=== PATIENT | female | born 1980 | race Caucasian/White ===

== ENCOUNTER 2016-08-28 05:13 | Emergency (ER) | payer OTHER ==
[~2016-08-28] VITALS: Ht 162.6 cm; Wt 60.8 kg
[~2016-08-28 05:13] MED LIST: MISC-696; MTR600X PO; POLY335019 PO; PRENTAB65 PO
[2016-08-28 05:26] VITALS: TEMP 36.5; Ht 162.6 cm; Wt 60.8 kg
[2016-08-28] MEDS ORDERED: DiphenhydrAMINE HCL 50 MG/ML VIAL IV STA (06:06)
[2016-08-28] MEDS ORDERED: ONDANSETRON INJ 2 MG/ML 2 ML VIAL IV STA (06:06)
[2016-08-28] MEDS ORDERED: SODIUM CHLORIDE 0.9% 1000ML 1,000 ML IV STA (06:06)
[2016-08-28 06:18] LABS: BASO % 0.3 %; BASO ABS # 0.02 K/uL (0-0.2); COMPLETE YES; EOS % 1.4 %; HEMATOCRIT 36.2 % (37-47); IG% 0.2 %; LYMPH % 45.6 %; LYMPH ABS # 2.96 K/uL (1.2-3.4); MEAN CELL VOLUME 79.9 fL (80-100); MEAN CORPUSCULAR HEMOGLOBIN 25.8 pg (25-34); MEAN CORPUSCULAR HGB CONC 32.3 g/dl (32-36); MEAN PLATELET VOLUME 9.7 fL (7.4-10.4); MONO % 5.5 %; PLATELET COUNT 308 K/uL (130-400); RED BLOOD COUNT 4.53 M/uL (4.2-5.4); WHITE BLOOD COUNT 6.49 K/uL (4.8-10.8)
[2016-08-28 06:33] LABS: PREG INTERNAL NEGATIVE QC NEG CLEAR BACKGROUND; PREG INTERNAL POSITIVE QC POS CONTROL LINE
[2016-08-28 06:36] LABS: ALT/SGPT 35 U/L (12-78); BLOOD UREA NITROGEN 12 mg/dl (7-18); BUN/CREATININE RATIO 14.8 (10-20); CARBON DIOXIDE 23 mmol/L (21-32); CHLORIDE 106 mmol/L (98-107); GLUCOSE 90 mg/dl (70-99); POTASSIUM 3.9 mmol/L (3.5-5.1); SODIUM 141 mmol/L (136-145)
[2016-08-28 06:47] LABS: ALKALINE PHOSPHATASE 105 U/L (45-117); AST/SGOT 26 U/L (15-37)
[2016-08-28 06:54] LABS: URINE APPEARANCE CLEAR (CLEAR); URINE BILIRUBIN NEG (NEG); URINE COLOR YELLOW; URINE EPITHELIAL CELL AUTO 20-30 /lpf (0-5); URINE NITRITE NEG (NEG); URINE PH 6.5 (4.5-7.5); URINE SPECIFIC GRAVITY 1.033 (1.000-1.030); UROBILINOGEN NEG (NEG); ZZUR CULT IF INDIC CLEAN CATCH YES
[2016-08-28] MEDS ORDERED: CEFTRIAXONE SOD INJ 1 GM ADDVIAL IV STA (06:54)
[2016-08-28 06:57] LABS: MANUAL MICROSCOPIC REQUIRED? NO; REVIEW REQ? NO
[2016-08-28] MEDS ORDERED: CEPH500C2 PO (06:58)
[2016-08-28] MEDS ORDERED: CEPHALEXIN 500MG HOME PACK 1 EA BTL PO ONE (07:00)
--- NOTE | 2016-08-28 07:56 | DIAGNOSTIC IMAGING REPORT ---
EXAMINATION: PELVIC ULTRASOUND CLINICAL HISTORY: pelvic pain PAIN COMPARISON STUDY: 05/05/2016 FINDINGS: The uterus measured maximum dimension 6.7 cm. Retroflexed in configuration.. The endometrial stripe measured 12 mm moderately prominent.. The right ovary measured maximum dimension 3.5 cm. Normal vascular flow.. The left ovary measured maximum dimension 3.7 cm. Normal vascular flow. There is no ultrasonographic evidence of ovarian torsion. It should be noted that ovarian torsion can be present with normal Doppler ultrasonographic findings. There was no evidence of pathologic free pelvic fluid. IMPRESSION: Retroflexed uterus. Mild endometrial prominence at 12 mm. Otherwise negative study Electronically signed by: Elliot Tobar M.D. 08/28/2016 7:54 AM Dictated Date/Time: 08/28/2016 7:52 AM
--- NOTE | 2016-08-28 08:27 | EMERGENCY ROOM VISIT NOTE ---
ED Visit Note First contact with patient: 07:13
--- NOTE | 2016-08-28 08:29 | EMERGENCY ROOM VISIT NOTE ---
ED Visit Note First contact with patient: 07:13 Ms. Walker was signed out to me at shift change which was 0700 hrs. on 2016. This was signed out to me by Princess Morales PA-C. At this time all the lab work was back except for the results of the ultrasound. The results of the ultrasound were discussed with the patient. The patient's urine was questionable for UTI however she did have urinary symptoms to clinical correlate. Benefits versus risk was discussed with the patient regarding antibiotics and she elected to take the Keflex. She is to follow-up with her HELP DESK MANAGER regarding the ultrasound findings. They were both educated upon worrisome symptoms in which to return, had questions answered prior to discharge and were discharged home in good condition. Problem List Medical Problems: (1) ADHD (attention deficit hyperactivity disorder) Status: Chronic (2) ANEMIA NOS Status: Chronic (3) Anxiety Status: Chronic (4) BORDERLINE PERSONALITY DISORDER Status: Chronic (5) CEREBRAL PALSY NOS Status: Chronic (6) Depression Status: Chronic (7) DYSTHYMIC DISORDER Status: Chronic (8) EATING DISORDER NOS Status: Chronic (9) ESOPHAGEAL REFLUX Status: Chronic (10) GASTROPARESIS Status: Chronic (11) HISTRIONIC PERSON NOS Status: Chronic (12) HYPERTENSION NOS Status: Chronic (13) IRRITABLE BOWEL SYNDROME Status: Chronic (14) OBSESSIVE-COMPULSIVE DIS Status: Chronic (15) OCD (obsessive compulsive disorder) Status: Chronic Current/Historical Medications Scheduled Cephalexin Monohydrate (Keflex), 500 MG PO QID Allergies Coded Allergies: Oxycodone (Verified Allergy, Intermediate, RASH, 08/28/16) Codeine (Verified Allergy, Mild, HIVES, 08/28/16) Benztropine (Verified Allergy, Unknown, itchy rash, 08/28/16) Carbamazepine (Verified Allergy, Unknown, 08/28/16) Fluoxetine (Verified Allergy, Unknown, UNSURE, 08/28/16) Vital Signs Date Time Temp Pulse Resp B/P Pulse Ox O2 Delivery O2 Flow Rate FiO2 08/28/16 08:45 65 13 112/62 98 08/28/16 07:42 64 15 112/65 99 Room Air 08/28/16 06:24 72 18 124/86 98 Room Air 08/28/16 05:26 36.5 68 18 132/81 100 Room Air Laboratory Results 08/28/16 06:05 Red Blood Count 4.53, Mean Corpuscular Volume 79.9, Mean Corpuscular Hemoglobin 25.8, Mean Corpuscular Hemoglobin Concent 32.3, Mean Platelet Volume 9.7, Neutrophils (%) (Auto) 47.0, Lymphocytes (%) (Auto) 45.6, Monocytes (%) (Auto) 5.5, Eosinophils (%) (Auto) 1.4, Basophils (%) (Auto) 0.3, Neutrophils # (Auto) 3.05, Lymphocytes # (Auto) 2.96, Monocytes # (Auto) 0.36, Eosinophils # (Auto) 0.09, Basophils # (Auto) 0.02 08/28/16 06:05 Test 08/28/16 05:45 08/28/16 05:50 08/28/16 06:05 Urine Color YELLOW Urine Appearance CLEAR (CLEAR) Urine pH 6.5 (4.5-7.5) Urine Specific [place] 1.033 (1.000-1.030) Urine Protein NEG (NEG) Urine Glucose (UA) NEG (NEG) Urine Ketones TRACE (NEG) Urine Occult Blood 1+ (NEG) Urine Nitrite NEG (NEG) Urine Bilirubin NEG (NEG) Urine Urobilinogen NEG (NEG) Urine Leukocyte Esterase NEG (NEG) Urine WBC (Auto) 5-10 /hpf (0-5) Urine RBC (Auto) 0-4 /hpf (0-4) Urine Hyaline Casts (Auto) 1-5 /lpf (0-5) Urine Epithelial Cells (Auto) 20-30 /lpf (0-5) Urine Bacteria (Auto) 1+ (NEG) White Blood Count 6.49 K/uL (4.8-10.8) Red Blood Count 4.53 M/uL (4.2-5.4) Hemoglobin 11.7 g/dL (12.0-16.0) Hematocrit 36.2 % (37-47) Mean Corpuscular Volume 79.9 fL (80-100) Mean Corpuscular Hemoglobin 25.8 pg (25-34) Mean Corpuscular Hemoglobin Concent 32.3 g/dl (32-36) Platelet Count 308 K/uL (130-400) Mean Platelet Volume 9.7 fL (7.4-10.4) Neutrophils (%) (Auto) 47.0 % Lymphocytes (%) (Auto) 45.6 % Monocytes (%) (Auto) 5.5 % Eosinophils (%) (Auto) 1.4 % Basophils (%) (Auto) 0.3 % Neutrophils # (Auto) 3.05 K/uL (1.4-6.5) Lymphocytes # (Auto) 2.96 K/uL (1.2-3.4) Monocytes # (Auto) 0.36 K/uL (0.11-0.59) Eosinophils # (Auto) 0.09 K/uL (0-0.5) Basophils # (Auto) 0.02 K/uL (0-0.2) RDW Standard Deviation 46.1 fL (36.4-46.3) RDW Coefficient of Variation 15.6 % (11.5-14.5) Immature Granulocyte % (Auto) 0.2 % Immature Granulocyte # (Auto) 0.01 K/uL (0.00-0.02) Anion Gap 12.0 mmol/L (3-11) Est Creatinine Clear Calc Drug Dose 84.8 ml/min Estimated GFR () 110.7 Estimated GFR (Non- 95.5 BUN/Creatinine Ratio 14.8 (10-20) Calcium Level 9.0 mg/dl (8.5-10.1) Total Bilirubin 0.2 mg/dl (0.2-1) Direct Bilirubin < 0.1 mg/dl (0-0.2) Aspartate Amino Transf (AST/SGOT) 26 U/L (15-37) Alanine Aminotransferase (ALT/SGPT) 35 U/L (12-78) Alkaline Phosphatase 105 U/L (45-117) Total Protein 7.8 gm/dl (6.4-8.2) Albumin 4.0 gm/dl (3.4-5.0) Lipase 171 U/L (73-393) Thyroid Stimulating Hormone (TSH) 2.020 uIu/ml (0.300-4.500) Human Chorionic Gonadotropin, Qual NEG (NEG) Medications Administered Medications (Trade) Dose Ordered Sig/Rachel Route Start Time Stop Time Status Last Admin Dose Admin Sodium Chloride (Nss 1000ml) 1,000 ml @ 999 mls/hr Q1H1M STAT IV 08/28/16 06:06 08/28/16 07:06 DC 08/28/16 06:14 999 MLS/HR Diphenhydramine HCl (Benadryl Inj) 25 mg NOW STAT IV 08/28/16 06:06 08/28/16 06:11 DC 08/28/16 06:14 25 MG Ondansetron HCl (Zofran Inj) 4 mg NOW STAT IV 08/28/16 06:06 08/28/16 06:11 DC 08/28/16 06:14 4 MG Ceftriaxone Sodium (Rocephin Inj) 1 gm NOW STAT IV 08/28/16 06:54 08/28/16 06:55 DC 08/28/16 07:42 1 GM Cephalexin Monohydrate (Keflex 500MG Home Pack) 1 homepack NOW ONCE PO 08/28/16 07:00 08/28/16 07:01 DC 08/28/16 07:41 1 HOMEPACK Departure Information Impression Primary Impression: UTI (urinary tract infection) Additional Impression: Anemia Dispostion Home / Self-Care Condition GOOD Prescriptions Cephalexin Monohydrate (KEFLEX) 500 Mg Cap 500 MG PO QID for 6 Days, #24 CAP Prov: Myrna Morales ., NIKO 08/28/16 Forms WORK / SCHOOL INSTRUCTIONS, HOME CARE DOCUMENTATION FORM, IMPORTANT VISIT INFORMATION Patient Instructions UTI, My [facility] Additional Instructions DO NOT drive, drink alcohol, operate machinery, or perform dangerous activities today. You were given medications in the ER that can affect your ability to safely function or operate a vehicle. Keflex 500mg: Take one pill 4 times daily for 7 days for your urine infection. All antibiotics can cause diarrhea. If this occurs and you feel worse or it does not resolve in 1-2 days follow up with your doctor or return to the Emergency Department as this could be signs of serious underlying problems. Any medication can cause an allergic reaction, stop the pills immediately and return to the ER for rash, hives, breathing difficulties, or swelling. This medication is safe with breast-feeding. Zofran 4 mg: Take one every six hours as needed for nausea. Avoid alcohol, operating machinery or dangerous equipment, working on ladders or roofs, DRIVING , or situations where being under the influence may be dangerous. Acetaminophen(Tylenol) may be used for fever or pain. Use 1000mg every six hours as needed. Avoid using more than 4000mg in a 24 hour period. Rest and drink plenty of fluids as tolerated. Slow sips of water or sports drinks are recommended instead of large amounts all at once. Continue current medications. Once your stomach is settled start with a clear liquid diet (jello, soup broth, etc.) and then advance as tolerated. You should avoid full, heavy meals for about 24 hrs from the time your symptoms resolved. Return to the ER immediately for worsening or persistent abdominal/back pain, vomiting, fevers, worsening of your condition, or as needed. Follow up with your primary physician within 2-3 days for a recheck of the current condition. Please follow up with your HELP DESK MANAGER by calling their office later today. Your Ultrasound revealed: Retroflexed uterus. Mild endometrial prominence at 12 mm. Otherwise negative study. These are non emergent findings. Please return to the emergency department with any new/concerning symptoms. Problem Qualifiers
[2016-08-28 08:45] VITALS: BP 112/62; PULSE 65; O2SAT 98
--- NOTE | 2016-08-28 21:30 | EMERGENCY ROOM VISIT NOTE ---
History First contact with patient: 05:40 Chief Complaint: VAGINAL DISCHARGE Stated Complaint: IRREG VAGINAL DISCHARGE,YIN,CRAMPING,BREAST TENDER History of Present Illness The patient is a 36 year old female who presents to the Emergency Room with complaints of multiple complaints. Patient had vaginal delivery 2 months ago. Patient complains of urinary frequency, breast tenderness, vaginal discharge, cramping, headache, fatigue for the past 2 months. Patient is in a monogamous relationship. Patient does not feel at risk for STIs. Patient denies chest pain, dyspnea, fevers, vomiting, diarrhea, vaginal bleeding, breast redness, back pain. She is tolerated by mouth fluids and food. Patient is currently breast-feeding. Review of Systems See HPI for pertinent positives & negatives. A total of 10 systems reviewed and were otherwise negative. Past Medical/Surgical History Medical Problems: (1) Abdominal pain affecting (2) ADHD (attention deficit hyperactivity disorder) (3) ANEMIA NOS (4) Anxiety (5) ATTN DEFIC NONHYPERACT (6) Back pain affecting (7) BORDERLINE PERSONALITY DISORDER (8) CEREBRAL PALSY NOS (9) Depression (10) DYSTHYMIC DISORDER (11) EATING DISORDER NOS (12) ESOPHAGEAL REFLUX (13) GASTROPARESIS (14) HISTRIONIC PERSON NOS (15) HYPERTENSION NOS (16) IRRITABLE BOWEL SYNDROME (17) OBSESSIVE-COMPULSIVE DIS (18) OCD (obsessive compulsive disorder) (19) Uterine contractions at greater than 20 weeks of gestation Family History FH: heart disease Hypertension Social History Smoking Status: Never Smoker Alcohol Use: none Drug Use: none Marital Status: in relationship Housing Status: lives with family Occupation Status: employed Current/Historical Medications Scheduled Cephalexin Monohydrate (Keflex), 500 MG PO QID Allergies Coded Allergies: Oxycodone (Verified Allergy, Intermediate, RASH, 08/28/16) Codeine (Verified Allergy, Mild, HIVES, 08/28/16) Benztropine (Verified Allergy, Unknown, itchy rash, 08/28/16) Carbamazepine (Verified Allergy, Unknown, 08/28/16) Fluoxetine (Verified Allergy, Unknown, UNSURE, 08/28/16) Physical Exam Vital Signs Date Time Temp Pulse Resp B/P Pulse Ox O2 Delivery O2 Flow Rate FiO2 08/28/16 08:45 65 13 112/62 98 08/28/16 07:42 64 15 112/65 99 Room Air 08/28/16 06:24 72 18 124/86 98 Room Air 08/28/16 05:26 36.5 68 18 132/81 100 Room Air Physical Exam VITALS: Vitals are noted on the nurse's note and reviewed by myself. Vital signs stable. GENERAL: Anxious-appearing female, in no acute distress, nondiaphoretic, well- developed well-nourished. SKIN: The skin was without rashes, erythema, edema, or bruising. There is no tenting of the skin. Capillary reflex less than 2 seconds. HEAD: Normocephalic atraumatic. EARS: External auditory canals clear, tympanic membranes pearly ramon without erythema or effusion bilaterally. EYES: Pupils equal round and reactive to light and accommodation. Conjunctivae without injection, sclerae without icterus. Extraocular movements intact. NOSE: Patent, turbinates without inflammation or discharge. No sinus tenderness. MOUTH: Mucous membranes moist. Pharynx without erythema or exudate. Uvula midline. Airway patent. Tongue does not deviate. NECK: Supple without nuchal rigidity. No lymphadenopathy. No thyromegaly. Cervical spine is nontender. No JVD. Breast exam: Normal breast tissue, no erythema or palpable abscess bilaterally HEART: Regular rate and rhythm without murmurs gallops or rubs. LUNGS: Clear to auscultation bilaterally without wheezes, rales or rhonchi. No dullness to percussion. No retractions or accessory muscle use. ABDOMEN: Positive bowel sounds x 4. Normal tympanic percussion. Soft, nontender, without masses or organomegaly. Abreu sign negative. No guarding or rebound tenderness. No CVA tenderness exam: Normal external female genitalia, no discharge in the vault, no CMT or adnexal tenderness. Cultures taken and sent. Hotbed Transfer Operator present MUSCULOSKELETAL: No muscle atrophy, erythema, or edema noted. NEURO: Patient was alert and oriented to person place and time. Normal sensation to light and sharp touch. No focal neurological deficits. Medical Decision & Procedures Laboratory Results 08/28/16 06:05 Red Blood Count 4.53, Mean Corpuscular Volume 79.9, Mean Corpuscular Hemoglobin 25.8, Mean Corpuscular Hemoglobin Concent 32.3, Mean Platelet Volume 9.7, Neutrophils (%) (Auto) 47.0, Lymphocytes (%) (Auto) 45.6, Monocytes (%) (Auto) 5.5, Eosinophils (%) (Auto) 1.4, Basophils (%) (Auto) 0.3, Neutrophils # (Auto) 3.05, Lymphocytes # (Auto) 2.96, Monocytes # (Auto) 0.36, Eosinophils # (Auto) 0.09, Basophils # (Auto) 0.02 08/28/16 06:05 Test 08/28/16 05:45 08/28/16 05:50 08/28/16 06:05 Urine Color YELLOW Urine Appearance CLEAR (CLEAR) Urine pH 6.5 (4.5-7.5) Urine Specific [place] 1.033 (1.000-1.030) Urine Protein NEG (NEG) Urine Glucose (UA) NEG (NEG) Urine Ketones TRACE (NEG) Urine Occult Blood 1+ (NEG) Urine Nitrite NEG (NEG) Urine Bilirubin NEG (NEG) Urine Urobilinogen NEG (NEG) Urine Leukocyte Esterase NEG (NEG) Urine WBC (Auto) 5-10 /hpf (0-5) Urine RBC (Auto) 0-4 /hpf (0-4) Urine Hyaline Casts (Auto) 1-5 /lpf (0-5) Urine Epithelial Cells (Auto) 20-30 /lpf (0-5) Urine Bacteria (Auto) 1+ (NEG) White Blood Count 6.49 K/uL (4.8-10.8) Red Blood Count 4.53 M/uL (4.2-5.4) Hemoglobin 11.7 g/dL (12.0-16.0) Hematocrit 36.2 % (37-47) Mean Corpuscular Volume 79.9 fL (80-100) Mean Corpuscular Hemoglobin 25.8 pg (25-34) Mean Corpuscular Hemoglobin Concent 32.3 g/dl (32-36) Platelet Count 308 K/uL (130-400) Mean Platelet Volume 9.7 fL (7.4-10.4) Neutrophils (%) (Auto) 47.0 % Lymphocytes (%) (Auto) 45.6 % Monocytes (%) (Auto) 5.5 % Eosinophils (%) (Auto) 1.4 % Basophils (%) (Auto) 0.3 % Neutrophils # (Auto) 3.05 K/uL (1.4-6.5) Lymphocytes # (Auto) 2.96 K/uL (1.2-3.4) Monocytes # (Auto) 0.36 K/uL (0.11-0.59) Eosinophils # (Auto) 0.09 K/uL (0-0.5) Basophils # (Auto) 0.02 K/uL (0-0.2) RDW Standard Deviation 46.1 fL (36.4-46.3) RDW Coefficient of Variation 15.6 % (11.5-14.5) Immature Granulocyte % (Auto) 0.2 % Immature Granulocyte # (Auto) 0.01 K/uL (0.00-0.02) Anion Gap 12.0 mmol/L (3-11) Est Creatinine Clear Calc Drug Dose 84.8 ml/min Estimated GFR () 110.7 Estimated GFR (Non- 95.5 BUN/Creatinine Ratio 14.8 (10-20) Calcium Level 9.0 mg/dl (8.5-10.1) Total Bilirubin 0.2 mg/dl (0.2-1) Direct Bilirubin < 0.1 mg/dl (0-0.2) Aspartate Amino Transf (AST/SGOT) 26 U/L (15-37) Alanine Aminotransferase (ALT/SGPT) 35 U/L (12-78) Alkaline Phosphatase 105 U/L (45-117) Total Protein 7.8 gm/dl (6.4-8.2) Albumin 4.0 gm/dl (3.4-5.0) Lipase 171 U/L (73-393) Thyroid Stimulating Hormone (TSH) 2.020 uIu/ml (0.300-4.500) Human Chorionic Gonadotropin, Qual NEG (NEG) Medications Administered Medications (Trade) Dose Ordered Sig/Rachel Route Start Time Stop Time Status Last Admin Dose Admin Sodium Chloride (Nss 1000ml) 1,000 ml @ 999 mls/hr Q1H1M STAT IV 08/28/16 06:06 08/28/16 07:06 DC 08/28/16 06:14 999 MLS/HR Diphenhydramine HCl (Benadryl Inj) 25 mg NOW STAT IV 08/28/16 06:06 08/28/16 06:11 DC 08/28/16 06:14 25 MG Ondansetron HCl (Zofran Inj) 4 mg NOW STAT IV 08/28/16 06:06 08/28/16 06:11 DC 08/28/16 06:14 4 MG Ceftriaxone Sodium (Rocephin Inj) 1 gm NOW STAT IV 08/28/16 06:54 08/28/16 06:55 DC 08/28/16 07:42 1 GM Cephalexin Monohydrate (Keflex 500MG Home Pack) 1 homepack NOW ONCE PO 08/28/16 07:00 08/28/16 07:01 DC 08/28/16 07:41 1 HOMEPACK ED Course Prior records/ancillary studies reviewed and summarized above. Nursing notes reviewed. Additional history obtained from family. The patient's history was concerning for urinary symptoms, fatigue, breast tenderness and multiple complaints. Differential diagnosis: Etiologies such as body changes after , metabolic, infection, hypo/ hyperglycemia, electrolyte abnormalities, cardiac sources, intracerebral event, toxicologic, neurologic, as well as others were entertained. Physical examination: As above. ER treatment provided: IV Lock Zofran, Benadryl, IV fluids On reassessment the patient felt better. Diagnostics interpretation by me: The labs revealed urine dip concerning for infection and sent for culture Mild anemia. Negative hCG. No leukocytosis Imaging studies: pending Exam and history seem consistent with UTI and body changes from recent and delivery. Patient is well-appearing. She is neurovascularly and neurologically intact. No other acute findings are noted. She is advised to continue breast-feeding. She is encouraged to increase her sleep and eat healthy. She is advised to stay well-hydrated. She is advised follow-up family care doctor in a day or 2 here in the ER sooner for fevers, neck stiffness, pain, worsening signs or symptoms or as needed. Patient did not have acute abdomen on exam. She was well-appearing. By the evaluation outlined above emergent etiologies such as electrolyte abnormalities, cardiac sources, intracerebral event, toxologic, neurologic, abnormalities blood glucose, metabolic, as well as others were deemed relatively unlikely. The pt informed about the findings as listed above. All questions were answered and pleased with the treatment. Return instructions were outlined and the patient was discharged in stable condition. Outpatient prescription management: keflex Referral: The patient was referred back to primary care physician for follow-up in 2 to 3 days for a recheck of the current condition. case reviewed with my Attending Case was signed out to Yoni George PA-C pending US and re-eval in stable condition. Medical Decision As above Impression Primary Impression: ANEMIA NOS Additional Impression: UTI (urinary tract infection) Departure Information Dispostion Home / Self-Care Condition GOOD Prescriptions Cephalexin Monohydrate (KEFLEX) 500 Mg Cap 500 MG PO QID for 6 Days, #24 CAP Prov: Andrew Myrna .NIKO 08/28/16 Referrals Rachel Casey M.D. (PCP) Patient Instructions My [facility] Additional Instructions DO NOT drive, drink alcohol, operate machinery, or perform dangerous activities today. You were given medications in the ER that can affect your ability to safely function or operate a vehicle. Keflex 500mg: Take one pill 4 times daily for 7 days for your urine infection. All antibiotics can cause diarrhea. If this occurs and you feel worse or it does not resolve in 1-2 days follow up with your doctor or return to the Emergency Department as this could be signs of serious underlying problems. Any medication can cause an allergic reaction, stop the pills immediately and return to the ER for rash, hives, breathing difficulties, or swelling. This medication is safe with breast-feeding. Zofran 4 mg: Take one every six hours as needed for nausea. Avoid alcohol, operating machinery or dangerous equipment, working on ladders or roofs, DRIVING , or situations where being under the influence may be dangerous. Acetaminophen(Tylenol) may be used for fever or pain. Use 1000mg every six hours as needed. Avoid using more than 4000mg in a 24 hour period. Rest and drink plenty of fluids as tolerated. Slow sips of water or sports drinks are recommended instead of large amounts all at once. Continue current medications. Once your stomach is settled start with a clear liquid diet (jello, soup broth, etc.) and then advance as tolerated. You should avoid full, heavy meals for about 24 hrs from the time your symptoms resolved. Return to the ER immediately for worsening or persistent abdominal/back pain, vomiting, fevers, worsening of your condition, or as needed. Follow up with your primary physician within 2-3 days for a recheck of the current condition. Problem Qualifiers
[2016-08-30 03:42] LABS: CHLAMYDIA TRACH RNA*** NOT DETECTED (NOT DETECTED); GC (NEIS GONORRHOEAE)RNA** NOT DETECTED (NOT DETECTED)
--- NOTE | 2016-08-31 14:21 | Pharmacy Progress Note ---
ED Pharmacist Culture FollowUp Date of Service: Aug 31, 2016. Genital culture from 08/28/16 is growing Grp B beta-hemolytic strep. Patient was seen in the ER for multiple complaints: vaginal discharge, cramping, urinary frequency, YIN and breast tenderness. She did have a vaginal deliver 2 months ago. Per provider's note: exam showed normal external exam, no discharge, no CMT. No fever was reported. No leukocytosis noted. Patient was dx with UTI and discharged on Keflex 500mg PO QID x 6 days. However Urine Cx grew out 3 organisms suggesting likely contamination. Grp B beta-hemolytic strep would likely be covered by Keflex if this was a true pathogen; Keflex is not a bad empiric choice for UTI in our area. No action required at this time.
[2016-12-05] MEDS ORDERED: PRENTAB26 PO (15:53)
== END 2016-08-28 08:55 | disposition home or self-care (01) ==
LOC: C.EDB 05:15 → C.EDA 08:55
DX: N39.0 Urinary tract infection, site not specified (principal); D64.9 Anemia, unspecified; I10 Essential (primary) hypertension; F34.1 Dysthymic disorder; F90.9 Attention-deficit hyperactivity disorder, unspecified type; K21.9 Gastro-esophageal reflux disease without esophagitis; K31.84 Gastroparesis; G80.9 Cerebral palsy, unspecified; F42.9 Obsessive-compulsive disorder, unspecified; Z88.5 Allergy status to narcotic agent; Z88.8 Allergy status to other drugs, medicaments and biological substances; Z82.49 Family history of ischemic heart disease and other diseases of the circulatory system

== ENCOUNTER 2016-12-05 13:48 | Emergency (ER) | payer OTHER ==
[~2016-12-05] VITALS: Ht 162.6 cm; Wt 62.0 kg
[2016-12-05 13:50] VITALS: TEMP 36.4; Ht 162.6 cm; Wt 62.0 kg
--- NOTE | 2016-12-05 14:29 | EMERGENCY ROOM VISIT NOTE ---
History Report prepared by Zen: Brittnee Palmer Under the Supervision of: Dr. Wili Freire M.D. First contact with patient: 14:00 Chief Complaint: MENTAL HEALTH EVALUATION Stated Complaint: MENTAL HEALTH History of Present Illness The patient is a 36 year old female who presents to the Emergency Room with complaints of persistent depression that worsened last evening. Per the psych case sealer the patient has a history of Cerebral Palsy and often has hallucinations. The patient has a history of depression and has a history of hurting herself in the past. The psych case sealer reports that the patient met a boy one year ago and had a baby five months ago. She reports that the patient has been taken off all her medications except for Zoloft. The psych case sealer states that the patient was an inpatient to be taken off her medications. The psych case sealer the patient became increasingly depressed and called her boyfriend 16 times at work last evening. She notes that since the patient's boyfriend did not answer, the patient made suicidal threats, stating that she was going to hang herself. The psych case sealer notes that the patient saw her psychiatrist today and was instructed to come to the emergency department for further evaluation. She notes that the patient does not wish to be 302'd. The patient states that over the last several months everything has been overwhelming. She notes that she has had several changes at home recently. Source of History: patient, other (psych case sealer) Onset: last evening Position: other (global) Quality: other (depression) Timing: worsening, other (persistent) Note: Associated Symptoms: Suicidal threats Review of Systems See HPI for pertinent positives & negatives. A total of 10 systems reviewed and were otherwise negative. Past Medical & Surgical Medical Problems: (1) Abdominal pain affecting (2) ADHD (attention deficit hyperactivity disorder) (3) ANEMIA NOS (4) Anxiety (5) ATTN DEFIC NONHYPERACT (6) Back pain affecting (7) BORDERLINE PERSONALITY DISORDER (8) CEREBRAL PALSY NOS (9) Depression (10) DYSTHYMIC DISORDER (11) EATING DISORDER NOS (12) ESOPHAGEAL REFLUX (13) GASTROPARESIS (14) HISTRIONIC PERSON NOS (15) HYPERTENSION NOS (16) IRRITABLE BOWEL SYNDROME (17) OBSESSIVE-COMPULSIVE DIS (18) OCD (obsessive compulsive disorder) (19) Uterine contractions at greater than 20 weeks of gestation Family History FH: heart disease Hypertension Social History Smoking Status: Never Smoker Alcohol Use: none Drug Use: none Marital Status: in relationship Housing Status: lives with family Occupation Status: employed Current/Historical Medications Scheduled Control Pills ( Control Pills), 1 TAB PO DAILY Multivit/Min/Iron/Fol Ac/Pren ( Vitamin), 1 TAB PO DAILY Sertraline (Zoloft), 100 MG PO QPM Allergies Coded Allergies: Oxycodone (Verified Allergy, Intermediate, RASH, 12/05/16) Codeine (Verified Allergy, Mild, HIVES, 12/05/16) Benztropine (Verified Allergy, Unknown, itchy rash, 12/05/16) Carbamazepine (Verified Allergy, Unknown, 12/05/16) Fluoxetine (Verified Allergy, Unknown, UNSURE, 12/05/16) Physical Exam Vital Signs Date Time Temp Pulse Resp B/P Pulse Ox O2 Delivery O2 Flow Rate FiO2 12/05/16 15:50 80 16 134/82 98 Room Air 12/05/16 13:50 36.4 96 16 138/75 100 Room Air Physical Exam GENERAL: Patient is a healthy-appearing well-nourished HEAD: Normocephalic atraumatic EYES: Ocular movements intact pupils equal and react to light OROPHARYNX mucous membranes are moist no exudates present no erythema or edema present NECK: Supple no nuchal rigidity CHEST: Good equal expansion LUNGS: Clear and equal to auscultation CARDIAC: Normal S1 and S2 ABDOMEN: Soft nontender no guarding BACK: No CVA tenderness EXTREMITIES: No pain upon palpation normal muscle strength in all groups no clubbing cyanosis or edema NEURO: Patient is following commands is answering questions appropriately. Alert and oriented x3 Cranial Nerves 2-12 grossly intact Medical Decision & Procedures Laboratory Results 12/05/16 14:45 Red Blood Count 4.72, Mean Corpuscular Volume 79.0, Mean Corpuscular Hemoglobin 25.0, Mean Corpuscular Hemoglobin Concent 31.6, Mean Platelet Volume 9.1, Neutrophils (%) (Auto) 71.7, Lymphocytes (%) (Auto) 22.3, Monocytes (%) (Auto) 4.8, Eosinophils (%) (Auto) 0.7, Basophils (%) (Auto) 0.2, Neutrophils # (Auto) 7.47, Lymphocytes # (Auto) 2.32, Monocytes # (Auto) 0.50, Eosinophils # (Auto) 0.07, Basophils # (Auto) 0.02 12/05/16 14:45 Test 12/05/16 14:15 12/05/16 14:21 12/05/16 14:45 Urine Color YELLOW Urine Appearance CLEAR (CLEAR) Urine pH 6.5 (4.5-7.5) Urine Specific [place] 1.021 (1.000-1.030) Urine Protein NEG (NEG) Urine Glucose (UA) NEG (NEG) Urine Ketones TRACE (NEG) Urine Occult Blood 2+ (NEG) Urine Nitrite NEG (NEG) Urine Bilirubin NEG (NEG) Urine Urobilinogen NEG (NEG) Urine Leukocyte Esterase NEG (NEG) Urine WBC (Auto) 1-5 /hpf (0-5) Urine RBC (Auto) 5-10 /hpf (0-4) Urine Hyaline Casts (Auto) 1-5 /lpf (0-5) Urine Epithelial Cells (Auto) >30 /lpf (0-5) Urine Bacteria (Auto) NEG (NEG) Urine Test NEG (NEG) Urine Opiates Screen NEG (NEG) Urine Methadone, Qualitative NEG (NEG) Urine Barbiturates NEG (NEG) Urine Phencyclidine (PCP) Level NEG (NEG) Ur Amphetamine/Methamphetamine NEG (NEG) MDMA (Ecstasy) Screen NEG (NEG) Urine Benzodiazepines Screen NEG (NEG) Urine Cocaine Metabolite NEG (NEG) Urine Marijuana (THC) NEG (NEG) Bedside Glucose 92 mg/dl (70-90) White Blood Count 10.41 K/uL (4.8-10.8) Red Blood Count 4.72 M/uL (4.2-5.4) Hemoglobin 11.8 g/dL (12.0-16.0) Hematocrit 37.3 % (37-47) Mean Corpuscular Volume 79.0 fL (80-100) Mean Corpuscular Hemoglobin 25.0 pg (25-34) Mean Corpuscular Hemoglobin Concent 31.6 g/dl (32-36) Platelet Count 476 K/uL (130-400) Mean Platelet Volume 9.1 fL (7.4-10.4) Neutrophils (%) (Auto) 71.7 % Lymphocytes (%) (Auto) 22.3 % Monocytes (%) (Auto) 4.8 % Eosinophils (%) (Auto) 0.7 % Basophils (%) (Auto) 0.2 % Neutrophils # (Auto) 7.47 K/uL (1.4-6.5) Lymphocytes # (Auto) 2.32 K/uL (1.2-3.4) Monocytes # (Auto) 0.50 K/uL (0.11-0.59) Eosinophils # (Auto) 0.07 K/uL (0-0.5) Basophils # (Auto) 0.02 K/uL (0-0.2) RDW Standard Deviation 45.5 fL (36.4-46.3) RDW Coefficient of Variation 15.6 % (11.5-14.5) Immature Granulocyte % (Auto) 0.3 % Immature Granulocyte # (Auto) 0.03 K/uL (0.00-0.02) Anion Gap 7.0 mmol/L (3-11) Est Creatinine Clear Calc Drug Dose 89.3 ml/min Estimated GFR () 117.8 Estimated GFR (Non- 101.6 BUN/Creatinine Ratio 18.5 (10-20) Calcium Level 8.8 mg/dl (8.5-10.1) Total Bilirubin 0.4 mg/dl (0.2-1) Direct Bilirubin < 0.1 mg/dl (0-0.2) Aspartate Amino Transf (AST/SGOT) 18 U/L (15-37) Alanine Aminotransferase (ALT/SGPT) 24 U/L (12-78) Alkaline Phosphatase 101 U/L (45-117) Total Protein 8.6 gm/dl (6.4-8.2) Albumin 4.1 gm/dl (3.4-5.0) Thyroid Stimulating Hormone (TSH) 2.090 uIu/ml (0.300-4.500) Ethyl Alcohol mg/dL < 3.0 mg/dl (0-3) Labs reviewed by ED physician. ED Course 1419: Past medical records reviewed. The patient was evaluated in room A5. A complete history and physical examination was performed. 1605: I reevaluated the patient, and she patient has been denying her suicidal thoughts. I discussed all of her exam findings and her treatment plan. She verbalized understand and is ready to go home. Medical Decision Differential diagnosis: Etiologies such as mood disorder, infection, hypoglycemia, electrolyte abnormalities, cardiac sources, intracerebral event, toxicologic, neurologic, as well as others were entertained. This is a 36-year-old female who presents emergency department after calling her nonstop last night while he was at work. The patient has a history of mental health issues. She denies being suicidal or homicidal. They did come here for evaluation and the is unwilling to fill out a 302 on this patient. He is willing to take her home. She was independently evaluated by case management who came to the same conclusion that the patient can follow-up with outpatient psychiatry. Patient family were in agreement with the treatment plan. Impression Primary Impression: Mood disorder Scribe Attestation The scribe's documentation has been prepared under my direction and personally reviewed by me in its entirety. I confirm that the note above accurately reflects all work, treatment, procedures, and medical decision making performed by me. Departure Information Dispostion Home / Self-Care Referrals Rachel Casey M.D. (PCP) Forms HOME CARE DOCUMENTATION FORM, IMPORTANT VISIT INFORMATION, School Instructions, Work Instructions Patient Instructions My [facility] Additional Instructions Follow up with therapist You have been examined and treated today on an emergency basis only. This is not a substitute for, or an effort to provide, complete comprehensive medical care. It is impossible to recognize and treat all injuries or illnesses in a single emergency department visit. It is therefore important that you follow up closely with Dr Casey. Call as soon as possible for an appointment. Thank you for your time and consideration. I look forward to speaking with you again soon. Please don't hesitate to call us if you have any questions.
[2016-12-05 14:58] LABS: BASO % 0.2 %; BASO ABS # 0.02 K/uL (0-0.2); COMPLETE YES; EOS % 0.7 %; HEMATOCRIT 37.3 % (37-47); IG% 0.3 %; LYMPH % 22.3 %; LYMPH ABS # 2.32 K/uL (1.2-3.4); MEAN CORPUSCULAR HGB CONC 31.6 g/dl (32-36); MEAN PLATELET VOLUME 9.1 fL (7.4-10.4); MONO % 4.8 %; NEUT % 71.7 %; PLATELET COUNT 476 K/uL (130-400); RED BLOOD COUNT 4.72 M/uL (4.2-5.4); WHITE BLOOD COUNT 10.41 K/uL (4.8-10.8)
[2016-12-05 15:00] LABS: URINE APPEARANCE CLEAR (CLEAR); URINE BILIRUBIN NEG (NEG); URINE COLOR YELLOW; URINE EPITHELIAL CELL AUTO >30 /lpf (0-5); URINE NITRITE NEG (NEG); URINE PH 6.5 (4.5-7.5); URINE SPECIFIC GRAVITY 1.021 (1.000-1.030); UROBILINOGEN NEG (NEG)
[2016-12-05 15:10] LABS: MANUAL MICROSCOPIC REQUIRED? NO; REVIEW REQ? NO
[2016-12-05 15:17] LABS: ALT/SGPT 24 U/L (12-78); AST/SGOT 18 U/L (15-37); BLOOD UREA NITROGEN 14 mg/dl (7-18); BUN/CREATININE RATIO 18.5 (10-20); CALCIUM 8.8 mg/dl (8.5-10.1); CARBON DIOXIDE 26 mmol/L (21-32); CHLORIDE 104 mmol/L (98-107); CREATININE 0.76 mg/dl (0.60-1.20); GLUCOSE 99 mg/dl (70-99); POTASSIUM 4.3 mmol/L (3.5-5.1); SODIUM 137 mmol/L (136-145)
[2016-12-05 15:27] LABS: ALKALINE PHOSPHATASE 101 U/L (45-117)
[2016-12-05 15:47] LABS: BENZODIAZEPINE, URINE NEG (NEG); COCAINE,URINE NEG (NEG); PHENCYCLIDINE, URINE NEG (NEG)
[2016-12-05 15:50] VITALS: BP 134/82; PULSE 80; O2SAT 98
[2016-12-05] MEDS ORDERED: BCPILLS PO (15:53)
[2016-12-05] MEDS ORDERED: SERT-234 PO (15:53)
[2017-06-12] MEDS ORDERED: PRENTAB26 PO (15:53)
== END 2016-12-05 16:19 | disposition home or self-care (01) ==
LOC: C.EDB 13:50 → C.EDA 16:19
DX: F39 Unspecified mood [affective] disorder (principal); F90.9 Attention-deficit hyperactivity disorder, unspecified type; G80.9 Cerebral palsy, unspecified; F50.9 Eating disorder, unspecified; K21.9 Gastro-esophageal reflux disease without esophagitis; K31.84 Gastroparesis; I10 Essential (primary) hypertension; K58.9 Irritable bowel syndrome, unspecified; F42.9 Obsessive-compulsive disorder, unspecified; Z82.49 Family history of ischemic heart disease and other diseases of the circulatory system; Z79.3 Long term (current) use of hormonal contraceptives; Z79.899 Other long term (current) drug therapy

== ENCOUNTER 2017-05-08 17:19 | Emergency (ER) | payer OTHER ==
[~2017-05-08] VITALS: Ht 163.8 cm; Wt 64.5 kg
[~2017-05-08 17:19] MED LIST changes: +BCPILLS PO; -MISC-696; -MTR600X PO; -POLY335019 PO; +PRENTAB26 PO; -PRENTAB65 PO; +SERT-234 PO
[2017-05-08 17:23] VITALS: TEMP 36.7; Ht 163.8 cm; Wt 64.5 kg
[2017-05-08] MEDS ORDERED: ONDANSETRON INJ 2 MG/ML 2 ML VIAL IV STA (18:06)
[2017-05-08] MEDS ORDERED: SODIUM CHLORIDE 0.9% 1000ML 1,000 ML IV STA ×2 (18:06)
[2017-05-08 18:52] LABS: BASO % 0.1 %; BASO ABS # 0.01 K/uL (0-0.2); COMPLETE YES; EOS % 0.3 %; HEMATOCRIT 35.9 % (37-47); IG% 0.2 %; LYMPH % 16.6 %; LYMPH ABS # 1.45 K/uL (1.2-3.4); MEAN CELL VOLUME 79.1 fL (80-100); MEAN CORPUSCULAR HEMOGLOBIN 26.2 pg (25-34); MEAN CORPUSCULAR HGB CONC 33.1 g/dl (32-36); MEAN PLATELET VOLUME 9.6 fL (7.4-10.4); MONO % 5.7 %; NEUT % 77.1 %; PLATELET COUNT 354 K/uL (130-400); RED BLOOD COUNT 4.54 M/uL (4.2-5.4); WHITE BLOOD COUNT 8.72 K/uL (4.8-10.8)
--- NOTE | 2017-05-08 18:52 | EMERGENCY ROOM VISIT NOTE ---
History Report prepared by Zen: Saman Mcgee Under the Supervision of: Dr. Branden Gaona M.D. First contact with patient: 18:04 Chief Complaint: VOMITING Stated Complaint: NAUSEA, 6WKS , VOMITING History of Present Illness The patient is a 37 year old female who presents to the Emergency Room with complaints of persistent vomiting beginning this week. She is roughly six weeks . This is her second and states that her first was successful. The patient states that she had similar symptoms along with her previous . She also complains of abdominal cramping, fevers, and chills. She denies any vaginal bleeding, chest pain, SOB, changes in vision, burning with urination or dizziness. Source of History: patient Onset: This week Quality: other (vomiting) Timing: other (persistent) Associated Symptoms: + fevers, + chills, + abdominal pain ("cramping"), No chest pain, No SOB Note: The patient denies any vaginal bleeding, changes in vision, burning with urination or dizziness.. Review of Systems See HPI for pertinent positives and negatives. A total of ten systems were reviewed and were otherwise negative. Past Medical & Surgical Medical Problems: (1) Abdominal pain affecting (2) ADHD (attention deficit hyperactivity disorder) (3) ANEMIA NOS (4) Anxiety (5) ATTN DEFIC NONHYPERACT (6) Back pain affecting (7) BORDERLINE PERSONALITY DISORDER (8) CEREBRAL PALSY NOS (9) Depression (10) DYSTHYMIC DISORDER (11) EATING DISORDER NOS (12) ESOPHAGEAL REFLUX (13) GASTROPARESIS (14) HISTRIONIC PERSON NOS (15) HYPERTENSION NOS (16) IRRITABLE BOWEL SYNDROME (17) OBSESSIVE-COMPULSIVE DIS (18) OCD (obsessive compulsive disorder) (19) Uterine contractions at greater than 20 weeks of gestation Family History FH: heart disease Hypertension Social History Smoking Status: Never Smoker Alcohol Use: none Drug Use: none Marital Status: in relationship Housing Status: lives with family Occupation Status: employed Current/Historical Medications Scheduled Citalopram (Citalopram Hydrobromide), 40 MG PO DAILY Multivit/Min/Iron/Fol Ac/Pren ( Vitamin), 1 TAB PO DAILY Nitrofurantoin Monohyd Macrocr (Macrobid), 100 MG PO BID Ondasetron Odt (Zofran Odt), 4 MG SL Q6H Allergies Coded Allergies: Oxycodone (Verified Allergy, Intermediate, RASH, 05/08/17) Codeine (Verified Allergy, Mild, HIVES, 05/08/17) Benztropine (Verified Allergy, Unknown, itchy rash, 05/08/17) Carbamazepine (Verified Allergy, Unknown, 05/08/17) Fluoxetine (Verified Allergy, Unknown, UNSURE, 05/08/17) Physical Exam Vital Signs Date Time Temp Pulse Resp B/P (MAP) Pulse Ox O2 Delivery O2 Flow Rate FiO2 05/08/17 20:50 61 17 110/69 100 05/08/17 19:18 65 15 112/66 100 Room Air 05/08/17 18:33 62 14 116/62 100 Room Air 05/08/17 17:23 36.7 79 17 115/68 100 Room Air Physical Exam GENERAL: Awake, alert, uncomfortable-appearing, in no distress HENT: Normocephalic, atraumatic. Oropharynx unremarkable. Dry mucous membranes. EYES: Normal conjunctiva. Sclera non-icteric. NECK: Supple. No nuchal rigidity. FROM. No JVD. RESPIRATORY: Clear to auscultation. CARDIAC: Regular rate, normal rhythm. Extremities warm and well perfused. Pulses equal. ABDOMEN: Soft, non-distended. Mild epigastric discomfort, but no tenderness to palpation. No rebound or guarding. No masses. No peritoneal signs. RECTAL: Deferred. MUSCULOSKELETAL: Chest examination reveals no tenderness. The back is symmetrical on inspection without obvious abnormality. There is no CVA tenderness to palpation. No joint edema. LOWER EXTREMITIES: Calves are equal size bilaterally and non-tender. No edema. No discoloration. NEURO: Normal sensorium. No sensory or motor deficits noted. SKIN: No rash or jaundice noted. Medical Decision & Procedures Laboratory Results 05/08/17 18:06 Red Blood Count 4.54, Mean Corpuscular Volume 79.1, Mean Corpuscular Hemoglobin 26.2, Mean Corpuscular Hemoglobin Concent 33.1, Mean Platelet Volume 9.6, Neutrophils (%) (Auto) 77.1, Lymphocytes (%) (Auto) 16.6, Monocytes (%) (Auto) 5.7, Eosinophils (%) (Auto) 0.3, Basophils (%) (Auto) 0.1, Neutrophils # (Auto) 6.71, Lymphocytes # (Auto) 1.45, Monocytes # (Auto) 0.50, Eosinophils # (Auto) 0.03, Basophils # (Auto) 0.01 05/08/17 18:06 Test 05/08/17 18:06 05/08/17 18:35 White Blood Count 8.72 K/uL (4.8-10.8) Red Blood Count 4.54 M/uL (4.2-5.4) Hemoglobin 11.9 g/dL (12.0-16.0) Hematocrit 35.9 % (37-47) Mean Corpuscular Volume 79.1 fL (80-100) Mean Corpuscular Hemoglobin 26.2 pg (25-34) Mean Corpuscular Hemoglobin Concent 33.1 g/dl (32-36) Platelet Count 354 K/uL (130-400) Mean Platelet Volume 9.6 fL (7.4-10.4) Neutrophils (%) (Auto) 77.1 % Lymphocytes (%) (Auto) 16.6 % Monocytes (%) (Auto) 5.7 % Eosinophils (%) (Auto) 0.3 % Basophils (%) (Auto) 0.1 % Neutrophils # (Auto) 6.71 K/uL (1.4-6.5) Lymphocytes # (Auto) 1.45 K/uL (1.2-3.4) Monocytes # (Auto) 0.50 K/uL (0.11-0.59) Eosinophils # (Auto) 0.03 K/uL (0-0.5) Basophils # (Auto) 0.01 K/uL (0-0.2) RDW Standard Deviation 46.6 fL (36.4-46.3) RDW Coefficient of Variation 16.0 % (11.5-14.5) Immature Granulocyte % (Auto) 0.2 % Immature Granulocyte # (Auto) 0.02 K/uL (0.00-0.02) Anion Gap 8.0 mmol/L (3-11) Est Creatinine Clear Calc Drug Dose 93.9 ml/min Estimated GFR () 122.8 Estimated GFR (Non- 106.0 BUN/Creatinine Ratio 8.5 (10-20) Calcium Level 9.4 mg/dl (8.5-10.1) Total Bilirubin 0.6 mg/dl (0.2-1) Direct Bilirubin 0.2 mg/dl (0-0.2) Aspartate Amino Transf (AST/SGOT) 14 U/L (15-37) Alanine Aminotransferase (ALT/SGPT) 15 U/L (12-78) Alkaline Phosphatase 72 U/L (45-117) Total Protein 8.9 gm/dl (6.4-8.2) Albumin 4.2 gm/dl (3.4-5.0) Lipase 147 U/L (73-393) Human Chorionic Gonadotropin, Quant [id number] mIU/mL Urine Color DK YELLOW Urine Appearance CLEAR (CLEAR) Urine pH 7.0 (4.5-7.5) Urine Specific [place] 1.025 (1.000-1.030) Urine Protein TRACE (NEG) Urine Glucose (UA) TRACE (NEG) Urine Ketones 3+ (NEG) Urine Occult Blood NEG (NEG) Urine Nitrite NEG (NEG) Urine Bilirubin NEG (NEG) Urine Urobilinogen NEG (NEG) Urine Leukocyte Esterase TRACE (NEG) Urine WBC (Auto) 1-5 /hpf (0-5) Urine RBC (Auto) 0-4 /hpf (0-4) Urine Hyaline Casts (Auto) 1-5 /lpf (0-5) Urine Epithelial Cells (Auto) >30 /lpf (0-5) Urine Bacteria (Auto) NEG (NEG) Laboratory results reviewed by me Medications Administered Medications (Trade) Dose Ordered Sig/Rachel Route Start Time Stop Time Status Last Admin Dose Admin Sodium Chloride 1,000 ml @ 999 mls/hr Q1H1M STAT IV 05/08/17 18:06 05/08/17 19:06 DC 05/08/17 18:32 999 MLS/HR Sodium Chloride 1,000 ml @ 999 mls/hr Q1H1M STAT IV 05/08/17 18:06 05/08/17 19:06 DC 05/08/17 18:33 999 MLS/HR Ondansetron HCl (Zofran Inj) 4 mg NOW STAT IV 05/08/17 18:06 05/08/17 18:09 DC 05/08/17 18:32 4 MG Nitrofurantoin Macrocrystals (Macrobid Cap) 100 mg ONE ONCE PO 05/08/17 20:00 05/08/17 20:03 DC 10/10/17 20:45 100 MG Ondansetron HCl (ZOFRAN ODT 4MG Home Pack) 1 homepack UD ONCE PO 05/08/17 20:00 05/08/17 20:03 DC 05/08/17 20:46 1 HOMEPACK Nitrofurantoin Macrocrystals (Macrobid Cap) 100 mg ONE ONCE PO 05/08/17 20:00 05/08/17 20:03 DC 05/08/17 20:45 100 MG ED Course 1803: The patient was evaluated in room B11B. A complete history and physical exam was performed. 1805: Ordered Zofran Inj 4 mg IV, Sodium Chloride 1000 ml @ 999 mls/hr IV, Sodium Chloride 1000 ml @ 999 mls/hr IV. 1933: I conducted a bedside ultrasound. Positive IUP with heart rate of 142. 1949: I reevaluated the patient. Discussed results and discharge instructions: she verbalized understanding and agreement. The patient is ready for discharge. 1999: Ordered Macrobid Cap 100 mg PO, Zofran Odt 4 mg home pack PO, Macrobid Cap 100 mg PO. Medical Decision I reviewed the patient's past medical history, medications, and the nursing notes as described above. The patient's presentation and history were concerning for hyperemesis gravidarum, gastritis, gastroenteritis, cholecystitis, appendicitis, miscarriage , ectopic , dehydration and electrolyte abnormalities. Patient is a 37-year-old woman who presents to the emergency department with persistent nausea and vomiting in setting of being 6 weeks per history of present illness. The patient appears uncomfortable but in no acute distress. Afebrile with stable vital signs. She has mild epigastric discomfort but otherwise nontender to palpation. Labs unremarkable. hcg 100Ks. Bedside US demonstrates +IUP with FHR 140s. Sx improved after IVF, zofran. UA with trace LE and WBC with treat for UTI with macrobid. Trace Protein as well however patient without hypertension, YIN, vision changes. Findings and plan for follow-up d/w patient. Patient agreeable and d/c'd per discharge instructions. Medication Reconcilliation Current Medication List: was personally reviewed by me Blood Pressure Screening Patient's blood pressure: Normal blood pressure Blood pressure disposition: Did not require urgent referral Impression Primary Impression: Hyperemesis gravidarum with dehydration Additional Impression: UTI (urinary tract infection) Scribe Attestation The scribe's documentation has been prepared under my direction and personally reviewed by me in its entirety. I confirm that the note above accurately reflects all work, treatment, procedures, and medical decision making performed by me. Departure Information Dispostion Home / Self-Care Prescriptions Nitrofurantoin Monohyd Macrocr (Macrobid) 100 Mg Cap 100 MG PO BID for 7 Days, #14 CAP Prov: Branden Gaona M.D. 05/08/17 Ondasetron Odt (ZOFRAN ODT) 4 Mg Tab 4 MG SL Q6H for Nausea, #15 TAB Prov: Branden Gaona M.D. 05/08/17 Referrals Rachel Casey M.D. (PCP) Patient Instructions ED Proteinuria, ED UTI Cystitis Female, Hyperemesis, My [facility], Preg 1st Trimester Additional Instructions Please follow up with your filament cutter next week as scheduled for re- evaluation and to discuss your symptoms as well as protein in your urine today. Otherwise, your exam, lab results, and bedside ultrasound did not show signs of an emergent condition at this time. Zofran as needed for nausea. Macrobid as directed for possible UTI. Drink plenty of fluids to ensure hydration. Return to the emergency department for worsening symptoms as described in the accompanying instructions. Problem Qualifiers
[2017-05-08 18:57] LABS: URINE APPEARANCE CLEAR (CLEAR); URINE BILIRUBIN NEG (NEG); URINE COLOR DK YELLOW; URINE EPITHELIAL CELL AUTO >30 /lpf (0-5); URINE NITRITE NEG (NEG); URINE SPECIFIC GRAVITY 1.025 (1.000-1.030); UROBILINOGEN NEG (NEG); ZZUR CULT IF INDIC CLEAN CATCH NO
[2017-05-08 19:01] LABS: MANUAL MICROSCOPIC REQUIRED? NO; REVIEW REQ? NO
[2017-05-08 19:14] LABS: BUN/CREATININE RATIO 8.5 (10-20); CALCIUM 9.4 mg/dl (8.5-10.1); CREATININE 0.73 mg/dl (0.60-1.20); POTASSIUM 3.4 mmol/L (3.5-5.1)
[2017-05-08] MEDS ORDERED: CITA40TA4 PO (19:30)
[2017-05-08] MEDS ORDERED: NITR-5 PO (19:53)
[2017-05-08] MEDS ORDERED: ONDA4TAB10 SL (19:53)
[2017-05-08] MEDS ORDERED: NITROFURANTOIN MONOHYDRATE 100 MG CAP PO ONE ×2 (20:00)
[2017-05-08] MEDS ORDERED: ONDANSETRON HOME PACK 4MG OD TAB PO ONE (20:00)
[2017-05-08] MEDS ORDERED: EMPTY 8 DRAM VIAL ONE (20:33)
[2017-05-08 20:50] VITALS: BP 110/69; PULSE 61; O2SAT 100
== END 2017-05-08 20:50 | disposition home or self-care (01) ==
LOC: C.EDB 17:21
DX: O21.1 Hyperemesis gravidarum with metabolic disturbance (principal); N39.0 Urinary tract infection, site not specified; F90.9 Attention-deficit hyperactivity disorder, unspecified type; D64.9 Anemia, unspecified; F41.9 Anxiety disorder, unspecified; G80.9 Cerebral palsy, unspecified; F32.9 Major depressive disorder, single episode, unspecified; F34.1 Dysthymic disorder; K21.9 Gastro-esophageal reflux disease without esophagitis; I10 Essential (primary) hypertension; K58.9 Irritable bowel syndrome, unspecified; F42.9 Obsessive-compulsive disorder, unspecified; Z82.49 Family history of ischemic heart disease and other diseases of the circulatory system

== ENCOUNTER 2017-05-22 11:30 | Emergency (ER) | payer OTHER ==
[~2017-05-22] VITALS: Ht 162.6 cm; Wt 61.5 kg
[~2017-05-22 11:30] MED LIST changes: -BCPILLS PO; +ONDA4TAB10 SL; -PRENTAB26 PO; -SERT-234 PO
[2017-05-22 11:42] VITALS: TEMP 36.4; Ht 162.6 cm; Wt 61.5 kg
[2017-05-22] MEDS ORDERED: SODIUM CHLORIDE 0.9% 1000ML 1,000 ML IV STA ×2 (12:05→12:52)
[2017-05-22] MEDS ORDERED: ONDANSETRON INJ 2 MG/ML 2 ML VIAL IV STA (12:05)
--- NOTE | 2017-05-22 12:09 | EMERGENCY ROOM VISIT NOTE ---
History Report prepared by Zen: Karla Sheehan Under the Supervision of: Dr. Riccardo Roca M.D. First contact with patient: 11:58 Chief Complaint: VOMITING Stated Complaint: VOMITING X 3-4 DAYS, 9 WKS. PREG. - SENT TO ER History of Present Illness The patient is a 37 year old female who presents to the Emergency Room with complaints of intermittent vomiting for the past 4 days. The patient is currently 9 weeks . She has been nauseated throughout this but it has been worse over the past 4 days. She states that she has been unable to keep anything down and has been vomiting every time she tries to eat or drink. She has tried Zofran and Phenergan without any relief. She has some mild , diffuse abdominal pain. 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 The patient denies any vaginal bleeding or discharge. She is . She had an US 5 days ago any everything was normal. Pt denies chest pain, shortness of breath, urinary symptoms, and recent trauma or injury. She has recent been sick with cold symptoms. Source of History: patient, spouse/significant other Onset: 4 days ago Position: abdomen Quality: other (vomiting) Timing: intermittent Modifying Factors (Worsening): eating, drinking Associated Symptoms: + nausea, + abdominal pain, No chest pain, No SOB, No urinary symptoms Note: Pt denies Review of Systems See HPI for pertinent positives & negatives. A total of 10 systems reviewed and were otherwise negative. Past Medical & Surgical Medical Problems: (1) Abdominal pain affecting (2) ADHD (attention deficit hyperactivity disorder) (3) ANEMIA NOS (4) Anxiety (5) ATTN DEFIC NONHYPERACT (6) Back pain affecting (7) BORDERLINE PERSONALITY DISORDER (8) CEREBRAL PALSY NOS (9) Depression (10) DYSTHYMIC DISORDER (11) EATING DISORDER NOS (12) ESOPHAGEAL REFLUX (13) GASTROPARESIS (14) HISTRIONIC PERSON NOS (15) HYPERTENSION NOS (16) IRRITABLE BOWEL SYNDROME (17) OBSESSIVE-COMPULSIVE DIS (18) OCD (obsessive compulsive disorder) (19) Uterine contractions at greater than 20 weeks of gestation Old medical records were reviewed. Nurse's notes were reviewed and I agree with. 1 previous . No history of ectopics or miscarriages Family History FH: heart disease Hypertension Social History Smoking Status: Never Smoker Smokeless Tobacco Use: No Alcohol Use: none Drug Use: none Marital Status: in relationship Housing Status: lives with family Occupation Status: unemployed Current/Historical Medications Scheduled Citalopram (Citalopram Hydrobromide), 40 MG PO DAILY Multivit/Min/Iron/Fol Ac/Pren ( Vitamin), 1 TAB PO DAILY Ondasetron Odt (Zofran Odt), 4 MG SL Q6H Allergies Coded Allergies: Oxycodone (Verified Allergy, Intermediate, RASH, 05/22/17) Codeine (Verified Allergy, Mild, HIVES, 05/22/17) Benztropine (Verified Allergy, Unknown, itchy rash, 05/22/17) Carbamazepine (Verified Allergy, Unknown, 05/22/17) Fluoxetine (Verified Allergy, Unknown, UNSURE, 05/22/17) Physical Exam Vital Signs Date Time Temp Pulse Resp B/P (MAP) Pulse Ox O2 Delivery O2 Flow Rate FiO2 05/22/17 13:52 69 16 121/46 98 Room Air 05/22/17 11:42 36.4 77 20 115/75 99 Room Air Physical Exam General: Non-ill appearing young female in no acute distress, nontoxic. HEENT: Normal cephalic atraumatic. Pupils are equal round and reactive to light. Extraocular movements are intact. Oropharynx is pink with moist mucous membranes. No swelling of the mouth lips or tongue. Neck: Supple with a midline trachea. No meningeal signs or stiffness, no JVD or bruits. No Stridor. Chest: Clear to auscultation bilaterally. No wheezes or rhonchi. No increased work of breathing. Heart: regular rate and rhythm. Abdomen: Soft mildly tender in the epigastric area, nondistended without rebound guarding or rigidity. Extremities: No cyanosis clubbing or edema. No calf tenderness or assymetry Spine/Back. Non tender to palpation. No CVA tenderness Skin: Good turgor without rashes. Neurologic exam: Cranial nerves two through 12 are intact. Motor and sensation are intact and symmetrical throughout. Medical Decision & Procedures Laboratory Results 05/22/17 12:15 Red Blood Count 4.67, Mean Corpuscular Volume 78.4, Mean Corpuscular Hemoglobin 26.3, Mean Corpuscular Hemoglobin Concent 33.6, Mean Platelet Volume 9.8, Neutrophils (%) (Auto) 81.1, Lymphocytes (%) (Auto) 14.9, Monocytes (%) (Auto) 3.3, Eosinophils (%) (Auto) 0.2, Basophils (%) (Auto) 0.2, Neutrophils # (Auto) 7.99, Lymphocytes # (Auto) 1.47, Monocytes # (Auto) 0.33, Eosinophils # (Auto) 0.02, Basophils # (Auto) 0.02 05/22/17 12:15 Test 05/22/17 12:05 05/22/17 12:15 Urine Color DK YELLOW Urine Appearance TURBID (CLEAR) Urine pH 6.0 (4.5-7.5) Urine Specific [place] 1.029 (1.000-1.030) Urine Protein 1+ (NEG) Urine Glucose (UA) NEG (NEG) Urine Ketones 4+ (NEG) Urine Occult Blood NEG (NEG) Urine Nitrite NEG (NEG) Urine Bilirubin NEG (NEG) Urine Urobilinogen NEG (NEG) Urine Leukocyte Esterase MODERATE (NEG) Urine WBC (Auto) 5-10 /hpf (0-5) Urine RBC (Auto) 0-4 /hpf (0-4) Urine Hyaline Casts (Auto) 1-5 /lpf (0-5) Urine Epithelial Cells (Auto) >30 /lpf (0-5) Urine Bacteria (Auto) 1+ (NEG) Urine Pathogenic Casts /lpf (0) White Blood Count 9.86 K/uL (4.8-10.8) Red Blood Count 4.67 M/uL (4.2-5.4) Hemoglobin 12.3 g/dL (12.0-16.0) Hematocrit 36.6 % (37-47) Mean Corpuscular Volume 78.4 fL (80-100) Mean Corpuscular Hemoglobin 26.3 pg (25-34) Mean Corpuscular Hemoglobin Concent 33.6 g/dl (32-36) Platelet Count 385 K/uL (130-400) Mean Platelet Volume 9.8 fL (7.4-10.4) Neutrophils (%) (Auto) 81.1 % Lymphocytes (%) (Auto) 14.9 % Monocytes (%) (Auto) 3.3 % Eosinophils (%) (Auto) 0.2 % Basophils (%) (Auto) 0.2 % Neutrophils # (Auto) 7.99 K/uL (1.4-6.5) Lymphocytes # (Auto) 1.47 K/uL (1.2-3.4) Monocytes # (Auto) 0.33 K/uL (0.11-0.59) Eosinophils # (Auto) 0.02 K/uL (0-0.5) Basophils # (Auto) 0.02 K/uL (0-0.2) RDW Standard Deviation 45.4 fL (36.4-46.3) RDW Coefficient of Variation 15.8 % (11.5-14.5) Immature Granulocyte % (Auto) 0.3 % Immature Granulocyte # (Auto) 0.03 K/uL (0.00-0.02) Anion Gap 10.0 mmol/L (3-11) Est Creatinine Clear Calc Drug Dose 108.4 ml/min Estimated GFR () 134.5 Estimated GFR (Non- 116.0 BUN/Creatinine Ratio 13.3 (10-20) Calcium Level 9.1 mg/dl (8.5-10.1) Total Bilirubin 0.6 mg/dl (0.2-1) Direct Bilirubin 0.1 mg/dl (0-0.2) Aspartate Amino Transf (AST/SGOT) 14 U/L (15-37) Alanine Aminotransferase (ALT/SGPT) 16 U/L (12-78) Alkaline Phosphatase 67 U/L (45-117) Total Protein 8.0 gm/dl (6.4-8.2) Albumin 3.8 gm/dl (3.4-5.0) Lipase 194 U/L (73-393) Laboratory studies as stated above per my review. Medications Administered Medications (Trade) Dose Ordered Sig/Rachel Route Start Time Stop Time Status Last Admin Dose Admin Sodium Chloride 1,000 ml @ 999 mls/hr Q1H1M STAT IV 05/22/17 12:05 05/22/17 13:05 DC 05/22/17 12:20 999 MLS/HR Ondansetron HCl (Zofran Inj) 4 mg NOW STAT IV 05/22/17 12:05 05/22/17 12:06 DC 05/22/17 12:21 4 MG Sodium Chloride 1,000 ml @ 999 mls/hr Q1H1M STAT IV 05/22/17 12:52 10/24/17 13:52 DC 05/22/17 13:00 999 MLS/HR ED Course 1158: Past medical records reviewed. The patient was evaluated in room C1B, and a complete history and physical examination were performed. 1205: Zofran 4 mg IV, NSS 1000 ml @ 999 mls/hr IV 1251: I updated the patient and she is feeling better but feels like she needs more fluids. 1252: NSS 1000 ml @ 999 mls/hr IV 1305: The patient is doing well. 1408: I spoke with Dr. Braga of [facility] [employer]. We discussed the patient's case. He will follow-up with the patient in the office later this week. 1411: I reassessed the patient at this time. She is feeling better and resting comfortably. I discussed the results and treatment plan with the patient. I answered all pertaining questions that she had. She expressed understanding and verbalized agreement. The patient will be discharged home. Medical Decision Differentials include, but are not limited to; hyperemesis gravidum, dehydration , electrolyte or metabolic abnormality, infection, complication. This patient comes in as described above. She has been vomiting. She is . She was seen 2 weeks ago for hyperemesis gravidarum. She has had an ultrasound in the office and tells me they have been able to see a fetus in the uterus. She has minimal diffuse abdominal pain medicine epigastric area. No peritonitis. IV access established was hydrated with 1 L IV normal saline bolus was given Zofran 4 mg IV. Blood testing was obtained. She was reassessed frequently. She did receive a second 1 L normal saline bolus. She has ketones in the urine but besides that her blood work looks fine. She has no significant electrolyte or metabolic abnormalities. She's had nothing to suggest infection. She's had nothing to suggest complication. She's had no significant abdominal pain in the lower abdomen. She's had no vaginal bleeding or discharge. I did discuss case with Dr. Braga, the family practice doctor on- call. He said that they sent her over for IV fluids and they can follow up with her in the office she is to use her antiemetics and follow-up with him tomorrow for recheck. The patient and her were happy with the plan and she was discharged home and encouraged to return if any new problems or concerns. Medication Reconcilliation Current Medication List: was personally reviewed by me Blood Pressure Screening Patient's blood pressure: Normal blood pressure Consults Time Called: 1407 Consulting Physician: Dr. Braga Returned Call: [address] Braga of [facility] [employer]. We discussed the patient's case. He will follow-up with the patient in the office later this week. Impression Primary Impression: Hyperemesis gravidarum Additional Impression: Scribe Attestation The scribe's documentation has been prepared under my direction and personally reviewed by me in its entirety. I confirm that the note above accurately reflects all work, treatment, procedures, and medical decision making performed by me. Departure Information Dispostion Home / Self-Care Referrals Rachel Casey M.D. (PCP) Forms HOME CARE DOCUMENTATION FORM, IMPORTANT VISIT INFORMATION Patient Instructions [facility] Additional Instructions Rest Drink plenty of fluids Contintue your anti-nausea medications Follow-up with your PLANNING ENGINEER tommorrow for recheck Problem Qualifiers Additional Impression: Weeks of gestation: 9 weeks Qualified Codes: Z3A.09 - 9 weeks gestation of
[2017-05-22 12:53] LABS: BASO % 0.2 %; BASO ABS # 0.02 K/uL (0-0.2); COMPLETE YES; EOS % 0.2 %; HEMATOCRIT 36.6 % (37-47); IG% 0.3 %; LYMPH % 14.9 %; LYMPH ABS # 1.47 K/uL (1.2-3.4); MEAN CELL VOLUME 78.4 fL (80-100); MEAN CORPUSCULAR HEMOGLOBIN 26.3 pg (25-34); MEAN CORPUSCULAR HGB CONC 33.6 g/dl (32-36); MEAN PLATELET VOLUME 9.8 fL (7.4-10.4); MONO % 3.3 %; NEUT % 81.1 %; PLATELET COUNT 385 K/uL (130-400); RED BLOOD COUNT 4.67 M/uL (4.2-5.4); WHITE BLOOD COUNT 9.86 K/uL (4.8-10.8)
[2017-05-22 12:58] LABS: URINE APPEARANCE TURBID (CLEAR); URINE COLOR DK YELLOW; URINE EPITHELIAL CELL AUTO >30 /lpf (0-5); URINE NITRITE NEG (NEG); URINE SPECIFIC GRAVITY 1.029 (1.000-1.030); UROBILINOGEN NEG (NEG)
[2017-05-22 13:04] LABS: REVIEW REQ? YES
[2017-05-22 13:10] LABS: BUN/CREATININE RATIO 13.3 (10-20); CALCIUM 9.1 mg/dl (8.5-10.1); CREATININE 0.62 mg/dl (0.60-1.20); POTASSIUM 3.8 mmol/L (3.5-5.1)
[2017-05-22 13:12] LABS: MANUAL MICROSCOPIC REQUIRED? NO; URINE BILIRUBIN NEG (NEG)
[2017-05-22 13:52] VITALS: BP 121/46; PULSE 69; O2SAT 98
[2017-06-12] MEDS ORDERED: PRENTAB26 PO (15:53)
== END 2017-05-22 14:29 | disposition home or self-care (01) ==
LOC: C.EDB 11:32 → C.EDC 14:29
DX: O21.0 Mild hyperemesis gravidarum (principal); R10.9 Unspecified abdominal pain; O10.011 Pre-existing essential hypertension complicating pregnancy, first trimester; O99.340 Other mental disorders complicating pregnancy, unspecified trimester; O99.611 Diseases of the digestive system complicating pregnancy, first trimester; F90.9 Attention-deficit hyperactivity disorder, unspecified type; F41.9 Anxiety disorder, unspecified; K21.9 Gastro-esophageal reflux disease without esophagitis; F42.9 Obsessive-compulsive disorder, unspecified; Z79.899 Other long term (current) drug therapy; Z87.19 Personal history of other diseases of the digestive system; Z82.49 Family history of ischemic heart disease and other diseases of the circulatory system; Z3A.09 9 weeks gestation of pregnancy

== ENCOUNTER 2017-06-12 18:11 | Emergency (ER) | payer OTHER ==
[~2017-06-12] VITALS: Ht 162.6 cm; Wt 61.0 kg
[~2017-06-12 18:11] MED LIST changes: +PRENTAB26 PO
[2017-06-12 18:20] VITALS: TEMP 37; Ht 162.6 cm; Wt 61.0 kg
[2017-06-12] MEDS ORDERED: METOCLOPRAMIDE HCL INJ 5 MG/ML 2 ML VIAL IV STA (18:33)
[2017-06-12] MEDS ORDERED: ONDANSETRON INJ 2 MG/ML 2 ML VIAL IV STA (18:33)
[2017-06-12] MEDS ORDERED: LACTATED RINGER'S 1000ML 1,000 ML IV STA (18:33)
[2017-06-12] MEDS ORDERED: DiphenhydrAMINE HCL 50 MG/ML VIAL IV STA (18:33)
--- NOTE | 2017-06-12 18:46 | EMERGENCY ROOM VISIT NOTE ---
History Report prepared by Zen: Saman Mcgee Under the Supervision of: Dr. Ashish Rebolledo M.D. First contact with patient: 18:28 Chief Complaint: NAUSEA Stated Complaint: NAUSEA,VOMITING,SICK,YIN, 12 WKS PREG,TENDER L KARLI History of Present Illness The patient is a 37 year old female who presents to the Emergency Room with complaints of persistent vomiting beginning last night. She is 12 weeks . This is her second , her first was a little over a year ago and was successful. The patient also complains of left chest pain, diarrhea, and nausea. She denies any fevers, vaginal discharge, or urinary symptoms. She notes that her son has similar symptoms. Source of History: patient Onset: Last night Quality: other (vomiting) Timing: other (persistent) Associated Symptoms: + chest pain (left), + nausea, + diarrhea, No fevers, No urinary symptoms Note: The patient denies vaginal discharge. Review of Systems See HPI for pertinent positives & negatives. A total of 10 systems reviewed and were otherwise negative. Past Medical & Surgical Medical Problems: (1) Abdominal pain affecting (2) ADHD (attention deficit hyperactivity disorder) (3) ANEMIA NOS (4) Anxiety (5) ATTN DEFIC NONHYPERACT (6) Back pain affecting (7) BORDERLINE PERSONALITY DISORDER (8) CEREBRAL PALSY NOS (9) Depression (10) DYSTHYMIC DISORDER (11) EATING DISORDER NOS (12) ESOPHAGEAL REFLUX (13) GASTROPARESIS (14) HISTRIONIC PERSON NOS (15) HYPERTENSION NOS (16) IRRITABLE BOWEL SYNDROME (17) OBSESSIVE-COMPULSIVE DIS (18) OCD (obsessive compulsive disorder) (19) Uterine contractions at greater than 20 weeks of gestation Family History FH: heart disease Hypertension Social History Smoking Status: Never Smoker Alcohol Use: none Drug Use: none Marital Status: in relationship Housing Status: lives with family Occupation Status: unemployed Current/Historical Medications Scheduled Citalopram (Citalopram Hydrobromide), 40 MG PO DAILY Multivit/Min/Iron/Fol Ac/Pren ( Vitamin), 1 TAB PO DAILY Scheduled PRN Metoclopramide (Reglan), 10 MG PO Q6H PRN for Nausea Allergies Coded Allergies: Oxycodone (Verified Allergy, Intermediate, RASH, 05/22/17) Codeine (Verified Allergy, Mild, HIVES, 05/22/17) Benztropine (Verified Allergy, Unknown, itchy rash, 05/22/17) Carbamazepine (Verified Allergy, Unknown, 05/22/17) Fluoxetine (Verified Allergy, Unknown, UNSURE, 05/22/17) Physical Exam Vital Signs Date Time Temp Pulse Resp B/P (MAP) Pulse Ox O2 Delivery O2 Flow Rate FiO2 06/12/17 18:20 37.0 87 16 117/78 96 Physical Exam GENERAL: Patient is in no acute distress. HEENT: No acute trauma, normocephalic atraumatic, mucous membranes moist, no nasal congestion, no scleral icterus. NECK: No stridor, no adenopathy, no meningismus, trachea is midline. LUNGS: Clear to auscultation bilaterally, no wheeze, no rhonchi, breath sounds equal. HEART: Without murmurs gallops or rubs, regular rate and rhythm. CHEST: Left inferior chest wall and left breast tenderness with palpation. ABDOMEN: Soft, bowel sounds positive, no hernias, no peritonitis. Diffusely mildly tender. EXTREMITIES: No cyanosis or edema, full range of motion of all the joints without pain or difficulty, no signs for acute trauma. NEUROLOGIC: Oriented x 3, no acute motor or sensory deficits, no focal weakness. SKIN: No rash, no jaundice, no diaphoresis. Medical Decision & Procedures Laboratory Results 06/12/17 18:55 Red Blood Count 4.41, Mean Corpuscular Volume 79.1, Mean Corpuscular Hemoglobin 27.2, Mean Corpuscular Hemoglobin Concent 34.4, Mean Platelet Volume 9.8, Neutrophils (%) (Auto) 84.9, Lymphocytes (%) (Auto) 11.2, Monocytes (%) (Auto) 3.1, Eosinophils (%) (Auto) 0.3, Basophils (%) (Auto) 0.2, Neutrophils # (Auto) 9.74, Lymphocytes # (Auto) 1.29, Monocytes # (Auto) 0.36, Eosinophils # (Auto) 0.04, Basophils # (Auto) 0.02 06/12/17 18:55 Test 06/12/17 18:55 06/12/17 19:10 White Blood Count 11.48 K/uL (4.8-10.8) Red Blood Count 4.41 M/uL (4.2-5.4) Hemoglobin 12.0 g/dL (12.0-16.0) Hematocrit 34.9 % (37-47) Mean Corpuscular Volume 79.1 fL (80-100) Mean Corpuscular Hemoglobin 27.2 pg (25-34) Mean Corpuscular Hemoglobin Concent 34.4 g/dl (32-36) Platelet Count 366 K/uL (130-400) Mean Platelet Volume 9.8 fL (7.4-10.4) Neutrophils (%) (Auto) 84.9 % Lymphocytes (%) (Auto) 11.2 % Monocytes (%) (Auto) 3.1 % Eosinophils (%) (Auto) 0.3 % Basophils (%) (Auto) 0.2 % Neutrophils # (Auto) 9.74 K/uL (1.4-6.5) Lymphocytes # (Auto) 1.29 K/uL (1.2-3.4) Monocytes # (Auto) 0.36 K/uL (0.11-0.59) Eosinophils # (Auto) 0.04 K/uL (0-0.5) Basophils # (Auto) 0.02 K/uL (0-0.2) RDW Standard Deviation 46.5 fL (36.4-46.3) RDW Coefficient of Variation 16.0 % (11.5-14.5) Immature Granulocyte % (Auto) 0.3 % Immature Granulocyte # (Auto) 0.03 K/uL (0.00-0.02) Anion Gap 9.0 mmol/L (3-11) Est Creatinine Clear Calc Drug Dose 122.2 ml/min Estimated GFR () 139.9 Estimated GFR (Non- 120.7 BUN/Creatinine Ratio 10.4 (10-20) Calcium Level 9.2 mg/dl (8.5-10.1) Total Bilirubin 0.4 mg/dl (0.2-1) Aspartate Amino Transf (AST/SGOT) 11 U/L (15-37) Alanine Aminotransferase (ALT/SGPT) 12 U/L (12-78) Alkaline Phosphatase 76 U/L (45-117) Total Protein 7.6 gm/dl (6.4-8.2) Albumin 3.3 gm/dl (3.4-5.0) Globulin 4.3 gm/dl (2.5-4.0) Albumin/Globulin Ratio 0.8 (0.9-2) Urine Color YELLOW Urine Appearance CLOUDY (CLEAR) Urine pH 7.5 (4.5-7.5) Urine Specific [place] 1.024 (1.000-1.030) Urine Protein NEG (NEG) Urine Glucose (UA) NEG (NEG) Urine Ketones 3+ (NEG) Urine Occult Blood NEG (NEG) Urine Nitrite NEG (NEG) Urine Bilirubin NEG (NEG) Urine Urobilinogen NEG (NEG) Urine Leukocyte Esterase SMALL (NEG) Urine WBC (Auto) 5-10 /hpf (0-5) Urine RBC (Auto) 0-4 /hpf (0-4) Urine Hyaline Casts (Auto) 10-30 /lpf (0-5) Urine Epithelial Cells (Auto) >30 /lpf (0-5) Urine Bacteria (Auto) NEG (NEG) Urine Renal Epithelial Cells /lpf (0-5) Urine Crystals AMORPHOUS SEDIMENT (NONE Urine Mucus PRESENT (NONE PRSENT) Laboratory results reviewed by me. Medications Administered Medications (Trade) Dose Ordered Sig/Rachel Route Start Time Stop Time Status Last Admin Dose Admin Metoclopramide HCl (Reglan Inj) 10 mg NOW STAT IV 06/12/17 18:33 06/12/17 18:36 DC 06/12/17 19:09 10 MG Diphenhydramine HCl (Benadryl Inj) 25 mg NOW STAT IV 06/12/17 18:33 06/12/17 18:36 DC 06/12/17 19:09 25 MG Lactated Ringer's 1,000 ml @ 999 mls/hr Q1H1M STAT IV 06/12/17 18:33 06/12/17 19:33 DC 06/12/17 19:09 999 MLS/HR Ondansetron HCl (Zofran Inj) 4 mg NOW STAT IV 06/12/17 18:33 06/12/17 18:36 DC 06/12/17 19:09 4 MG ED Course 1828: The patient was evaluated in room C7. A complete history and physical exam was performed. 1832: Ordered Zofran Inj 4 mg IV, Lactated Ringer's 1000 mL @ 999 mL/hr IV, Benadryl Inj 25 mg IV, Reglan Inj 10 mg IV. 1951: Reevaluated the patient. Discussed results and discharge instructions: she verbalized understanding and agreement. The patient is ready for discharge. Medical Decision The patient is a 37 year old female who presents to the ED with complaints of nausea and vomiting. Differential diagnoses considered include dehydration, electrolyte imbalance, viral illness, food borne illness, vomiting secondary to , UTI, and anemia. There is a mild leukocytosis, likely consistent with her vomiting and just her . No concerning anemia. No significant electrolyte abnormality, kidney failure or hepatitis. Urinalysis shows dehydration and contamination, no infection. On exam, she was not febrile or toxic, she was not tachycardic. There was no peritonitis. She has not had any vaginal discharge or vaginal bleeding. Patient received IV lactated Ringer's. She received IV Zofran, IV Reglan and IV Benadryl. She feels markedly better. The patient's illness is likely secondary to the plus possibly, a viral illness caught from her son. She is stable and okay for discharge, I will prescribe some Reglan in place of the Zofran for nausea as the Reglan seems to have helped today. She can return to this ER for worsening symptoms, she will follow with OB. Medication Reconcilliation Current Medication List: was personally reviewed by me Blood Pressure Screening Patient's blood pressure: Normal blood pressure Blood pressure disposition: Did not require urgent referral Impression Primary Impression: Dehydration Additional Impressions: Vomiting Scribe Attestation The scribe's documentation has been prepared under my direction and personally reviewed by me in its entirety. I confirm that the note above accurately reflects all work, treatment, procedures, and medical decision making performed by me. Departure Information Dispostion Home / Self-Care Prescriptions Metoclopramide (Reglan) 10 Mg Tab 10 MG PO Q6H Y for Nausea, #10 TAB Prov: Ashish Rebolledo M.D. 06/12/17 Referrals Rachel Casey M.D. (PCP) Forms HOME CARE DOCUMENTATION FORM, IMPORTANT VISIT INFORMATION Patient Instructions My [facility] Additional Instructions try reglan every 6 hours for nausea as needed fluids rest return if worsening lab testing was all ok today as discussed be sure to follow with ob as well Problem Qualifiers
[2017-06-12 19:03] LABS: BASO % 0.2 %; BASO ABS # 0.02 K/uL (0-0.2); COMPLETE YES; EOS % 0.3 %; HEMATOCRIT 34.9 % (37-47); IG% 0.3 %; LYMPH % 11.2 %; LYMPH ABS # 1.29 K/uL (1.2-3.4); MEAN CELL VOLUME 79.1 fL (80-100); MEAN CORPUSCULAR HEMOGLOBIN 27.2 pg (25-34); MEAN CORPUSCULAR HGB CONC 34.4 g/dl (32-36); MEAN PLATELET VOLUME 9.8 fL (7.4-10.4); MONO % 3.1 %; NEUT % 84.9 %; PLATELET COUNT 366 K/uL (130-400); RED BLOOD COUNT 4.41 M/uL (4.2-5.4); WHITE BLOOD COUNT 11.48 K/uL (4.8-10.8)
[2017-06-12 19:21] LABS: BUN/CREATININE RATIO 10.4 (10-20); CALCIUM 9.2 mg/dl (8.5-10.1); CREATININE 0.55 mg/dl (0.60-1.20); POTASSIUM 3.8 mmol/L (3.5-5.1)
[2017-06-12 19:24] LABS: ALB/GLOB RATIO 0.8 (0.9-2)
[2017-06-12 19:29] LABS: URINE APPEARANCE CLOUDY (CLEAR); URINE BILIRUBIN NEG (NEG); URINE COLOR YELLOW; URINE EPITHELIAL CELL AUTO >30 /lpf (0-5); URINE NITRITE NEG (NEG); URINE PH 7.5 (4.5-7.5); URINE SPECIFIC GRAVITY 1.024 (1.000-1.030); UROBILINOGEN NEG (NEG); ZZUR CULT IF INDIC CLEAN CATCH NO
[2017-06-12] MEDS ORDERED: CITA40TA4 PO (19:30)
[2017-06-12 19:35] LABS: MANUAL MICROSCOPIC REQUIRED? NO; REVIEW REQ? YES
[2017-06-12 19:47] LABS: URINE MUCUS PRESENT (NONE PRSENT)
[2017-06-12] MEDS ORDERED: METO-157 PO (20:11)
[2017-06-12 20:27] VITALS: BP 120/72; PULSE 84; O2SAT 99
== END 2017-06-12 20:28 | disposition home or self-care (01) ==
LOC: C.EDB 18:13 → C.EDC 20:28
DX: E86.0 Dehydration (principal); O99.281 Endocrine, nutritional and metabolic diseases complicating pregnancy, first trimester; O21.9 Vomiting of pregnancy, unspecified; R07.9 Chest pain, unspecified; R19.7 Diarrhea, unspecified; O99.341 Other mental disorders complicating pregnancy, first trimester; F90.9 Attention-deficit hyperactivity disorder, unspecified type; F60.3 Borderline personality disorder; Z79.899 Other long term (current) drug therapy; Z3A.12 12 weeks gestation of pregnancy; Z87.19 Personal history of other diseases of the digestive system; Z87.898 Personal history of other specified conditions; Z82.49 Family history of ischemic heart disease and other diseases of the circulatory system

== ENCOUNTER 2017-09-12 17:13 | Outpatient (CLI) | payer OTHER ==
[~2017-09-12] VITALS: Ht 163.8 cm; Wt 63.0 kg
[~2017-09-12 17:13] MED LIST changes: +CITA40TA4 PO; +METO-157 PO; -ONDA4TAB10 SL
[2017-09-12 18:17] LABS: HEMATOCRIT 29.5 % (37-47); HEMOGLOBIN 9.7 g/dL (12.0-16.0); MEAN CELL VOLUME 79.7 fL (80-100); MEAN CORPUSCULAR HEMOGLOBIN 26.2 pg (25-34); PLATELET COUNT 325 K/uL (130-400); RED CELL DISTRIBUTION WIDTH CV 14.3 % (11.5-14.5); RED CELL DISTRIBUTION WIDTH SD 41.6 fL (36.4-46.3); WHITE BLOOD COUNT 11.85 K/uL (4.8-10.8)
[2017-09-12 18:34] LABS: MEAN CORPUSCULAR HGB CONC 32.9 g/dl (32-36)
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
[2017-09-12 20:47] VITALS: Ht 163.8 cm; Wt 63.0 kg
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
== END 2017-09-12 20:56 | disposition home or self-care (01) ==
LOC: C.LD 17:13 → C.OPB 17:13
PROVIDERS: ATTEND Obstetrics & Gynecology
DX: O99.89 Other specified diseases and conditions complicating pregnancy, childbirth and the puerperium (principal); V43.62XA Car passenger injured in collision with other type car in traffic accident, initial encounter; O09.522 Supervision of elderly multigravida, second trimester; Z3A.35 35 weeks gestation of pregnancy

== ENCOUNTER 2018-11-10 08:55 | Inpatient (IN) ==
[2018-11-10] MEDS ORDERED: LORazepam 1 MG TAB SL STA (09:16)
[2018-11-10 09:36] LABS: Appearance Urine Clear (Clear); Bilirubin Urine Negative (Negative); Blood Urine Negative (Negative); Color Urine Yellow; Glucose Urine UA Negative (Negative); Ketones Urine Negative (Negative); Leukocyte Esterase Urine Negative (Negative); Nitrite Urine Negative (Negative); Protein Urine Negative (Negative); Urobilinogen Urine Negative (Negative); pH Urine 7.5 (4.5-7.5)
[2018-11-10 09:54] LABS: Amphetamines+Metham, Urine Neg (Neg); Barbiturates, Urine Neg (Neg); Benzodiazepine, Urine Neg (Neg); Cocaine, Urine Neg (Neg); MDMA (Ecstacy), Urine Neg (Neg); Methadone, Urine Neg (Neg); Opiate, Urine Neg (Neg); Phencyclidine, Urine Neg (Neg)
[2018-11-10 10:11] LABS: Basophils # (auto) 0.02 K/uL (0-0.2); Basophils % (auto) 0.2 %; Eosinophils # (auto) 0.04 K/uL (0-0.5); Eosinophils % (auto) 0.5 %; Hematocrit (blood only) 38.7 % (37-47); Hemoglobin 12.5 g/dL (12.0-16.0); Immature Granulocytes # (auto) 0.02 K/uL (0.00-0.02); Immature Granulocytes % (auto) 0.2 %; Lymphocytes # (auto) 1.61 K/uL (1.2-3.4); Mean Corpuscular Hgb Conc 32.3 g/dL (32-36); Mean Platelet Volume 9.3 fL (7.4-10.4); Monocytes # (auto) 0.47 K/uL (0.11-0.59); Monocytes % (auto) 5.8 %; Neutrophils # (auto) 5.91 K/uL (1.4-6.5); Neutrophils % (auto) 73.3 %; Platelet Count 383 K/uL (130-400); RDW Coefficient of Variation 15.7 % (11.5-14.5); RDW Standard Deviation 45.6 fL (36.4-46.3); White Blood Count 8.07 K/uL (4.8-10.8)
[2018-11-10 10:31] LABS: Albumin Level 4.3 gm/dl (3.4-5.0); BUN Creatinine Ratio 11.1 (10-20); Calcium 9.1 mg/dl (8.5-10.1); Creatinine Clr Calc Pharmacy 87.5 ml/min; Est GFR (African American) 116.1; Est GFR (Non-African American) 100.2; Potassium 3.8 mmol/L (3.5-5.1)
[2018-11-10 10:33] LABS: Acetaminophen < 2 ug/ml (10-30); Salicylate < 1.7 mg/dl (2.8-20)
[2018-11-10 10:42] LABS: Albumin Globulin Ratio 1.3 (0.9-2); Bilirubin,Total 0.7 mg/dl (0.2-1); Globulin 3.4 gm/dl (2.5-4.0); Total Protein 7.7 gm/dl (6.4-8.2)
--- NOTE | 2018-11-10 11:02 | Emergency Department Note ---
Entered by Evon Kyle acting as a scribe for History of Present Illness General Chief complaint: Mental Health Evaluation Stated complaint: severe anxiety, cant sleep, depressed Time Seen by Provider: 11/10/18 09:03 Source: patient History of Present Illness Onset (ago): month(s) Location: head Pain Consistency: + other (episode) Maximum Pain Intensity: 5 Quality: + other (thoughts of self-harm) Associated symptoms: + loss of appetite and + other (insomnia, depression, paranoia) The patient is a 38 year old female who presents to the Emergency Room with complaints of thoughts of self-harm that have been ongoing. The patient reports that she told her partner that she has had thoughts of harming herself for awhile and decided to come to the Emergency Room. She states that she has been depressed, paranoid, and anxious for awhile and was prescribed Cymbalta 3 days ago. She notes that she has not started taking her medication yet. She states that she has not been able to sleep or eat normally. She reports that she is fo llowed by Dr. Holguin once a month for the past 6-12 months. She notes that she is worried that she not being a good mother and draining everyone around her. She denies any chance that she is . She notes that she had an eating disorder in the past that started when she was 16 years old. Her partner states that the patient often makes threats of harming herself but has not done so as of yet. She notes that she has a history of MERSA that has since resolved. Home Medications Home Medications Medication Instructions Recorded Confirmed Type lorazepam 0.5 mg PO TID PRN 11/10/18 11/10/18 History polyethylene glycol 3350 [Miralax] 17 g PO DAILY 11/10/18 11/10/18 History Allergies Allergy/AdvReac Type Severity Reaction Status Date / Time oxycodone Allergy Intermediate RASH Verified 11/10/18 09:34 codeine Allergy Mild HIVES Verified 11/10/18 09:34 benztropine Allergy Unknown itchy rash Verified 11/10/18 09:34 carbamazepine Allergy Unknown Unknown Verified 11/10/18 09:34 fluoxetine Allergy Unknown UNSURE Verified 11/10/18 09:34 Past Med/Surg History Medical History Anxiety (Chronic) Depression (Chronic) OCD (obsessive compulsive disorder) (Chronic) ADHD (attention deficit hyperactivity disorder) (Chronic) Abdominal pain affecting Back pain affecting Codeine overdose (Acute) Dehydration (Acute) Depression (Acute) Eating disorder (Acute) Foreign body (FB) in soft tissue (Acute) Headache (Acute) Hives (Acute) Overdose of nonsteroidal anti-inflammatory drug (NSAID) (Acute) Sore throat (Acute) Suicidal ideation (Acute) Traumatic injury during Tylenol overdose (Acute) UTI (urinary tract infection) (Acute) Vomiting (Acute) Weakness (Acute) Family History Other No significant family history Social History Preferred Language: Kosovan Communication Ability: Effective Beliefs That Will Affect Care: None marital status: Single Current Living Situation: Family current occupational status: employed Feels Safe at Home: Hesitant to Answer Smoking Status: Never smoker Review of Systems See HPI for pertinent positives & negatives. and A total of 10 systems reviewed and were otherwise negative Physical Exam Vital Signs Vital Signs - 24 hr 11/12/18 06:40 Temperature 37.1 C Temperature Source Oral Pulse Rate [Left Brachial] 116 H Pulse Rhythm [Left Brachial] Regular Pulse Strength [Left Brachial] Normal Respiratory Rate 18 Respiratory Effort / Characteristics Non-Labored Respiratory Depth Normal Respiratory Pattern Regular Blood Pressure [Left Arm] 129/81 Blood Pressure Mean [Left Arm] 97 Blood Pressure Position [Left Arm] Sitting GENERAL: Patient is a healthy-appearing well-nourished HEAD: Normocephalic atraumatic EYES: Ocular movements intact pupils equal and react to light OROPHARYNX mucous membranes are moist no exudates present no erythema or edema present NECK: Supple no nuchal rigidity CHEST: Good equal expansion LUNGS: Clear and equal to auscultation CARDIAC: Normal S1 and S2 ABDOMEN: Soft nontender no guarding BACK: No CVA tenderness EXTREMITIES: No pain upon palpation normal muscle strength in all groups no clubbing cyanosis or edema NEURO: Patient is following commands is answering questions appropriately. Alert and oriented x3 Cranial Nerves 2-12 grossly intact Course 0910: The patient was evaluated in room A06, and a complete history and physical examination were performed. 1000: I updated the patient on her current lab results. 1130: I discussed tonight's findings with the patient. She verbalized agreement of the treatment plan. She will be evaluated at [facility] for further evaluation and treatment. Administered Medications Hydroxyzine HCl (Vistaril) 50 mg PO HSZ PRN PRN Reason: Insomnia Stop: 12/10/18 14:12 Last Admin: 11/10/18 21:49 Dose: 50 mg Documented by: [id number] Lorazepam (Ativan) 0.5 mg PO TID PRN PRN Reason: Anxiety Stop: 12/10/18 14:13 Last Admin: 11/11/18 09:35 Dose: 0.5 mg Documented by: [id number] Admin: 11/10/18 21:14 Dose: 0.5 mg Documented by: [id number] Polyethylene Glycol (Miralax Powder Packet) 17 gm PO DAILY OJ Stop: 12/11/18 08:59 Last Admin: 11/12/18 08:02 Dose: Not Given Documented by: [id number] Admin: 11/11/18 08:49 Dose: Not Given Documented by: [id number] Venlafaxine HCl (Effexor Extended Release) 75 mg PO QAM OJ Stop: 12/12/18 08:59 Last Admin: 11/12/18 08:01 Dose: 75 mg Documented by: [id number] Discontinued Medications Lorazepam (Ativan) 1 mg SL NOW STA Stop: 11/10/18 09:17 Last Admin: 11/10/18 09:30 Dose: 1 mg Documented by: [id number] Venlafaxine HCl (Effexor Extended Release) 37.5 mg PO NOW STA Stop: 11/11/18 11:13 Last Admin: 11/11/18 11:41 Dose: 37.5 mg Documented by: [id number] Medical Decision Making Differential Diagnosis Differential diagnosis: Etiologies such as mood disorder, infection, hypoglycemia, electrolyte abnormalities, cardiac sources, intracerebral event, toxicologic, neurologic, as well as others were entertained. Medical Records Attestation: I reviewed the patient's medical records. Home Medications Current Medication List: was personally reviewed by me Laboratory Data Attestation: I reviewed the patient's lab results. Result diagrams: 11/10/18 09:49 11/10/18 09:49 Lab Results 11/10/18 11/10/18 11/10/18 Range/Units 09:20 09:20 09:20 WBC (4.8-10.8) K/uL RBC (4.2-5.4) M/uL Hgb (12.0-16.0) g/dL Hct (37-47) % MCV (80-100) fL MCH (25-34) pg MCHC (32-36) g/dL RDW Std Deviation (36.4-46.3) fL RDW Coeff of Bernard (11.5-14.5) % Plt Count (130-400) K/uL MPV (7.4-10.4) fL Immature Gran % (Auto) % Neut % (Auto) % Lymph % (Auto) % Mason % (Auto) % Eos % (Auto) % Baso % (Auto) % Immature Gran # (Auto) (0.00-0.02) K/uL Neut # (Auto) (1.4-6.5) K/uL Lymph # (Auto) (1.2-3.4) K/uL Mason # (Auto) (0.11-0.59) K/uL Eos # (Auto) (0-0.5) K/uL Baso # (Auto) (0-0.2) K/uL Sodium (136-145) mmol/L Potassium (3.5-5.1) mmol/L Chloride (98-107) mmol/L Carbon Dioxide (21-32) mmol/L Anion Gap (3-11) BUN (7-18) mg/dl Creatinine (0.6-1.2) mg/dl Est Cr Clr Drug Dosing ml/min Est GFR ( Amer) Est GFR (Non-Af Amer) BUN/Creatinine Ratio (10-20) Glucose (70-99) mg/dl Calcium (8.5-10.1) mg/dl Total Bilirubin (0.2-1) mg/dl AST (15-37) U/L ALT (12-78) U/L Alkaline Phosphatase (45-117) U/L Total Protein (6.4-8.2) gm/dl Albumin (3.4-5.0) gm/dl Globulin (2.5-4.0) gm/dl Albumin/Globulin Ratio (0.9-2) TSH (0.300-4.500) uIu/ml Urine Color Yellow Urine Appearance Clear (Clear) Urine pH 7.5 (4.5-7.5) Ur Specific [place] 1.010 (1.000-1.030) Urine Protein Negative (Negative) Urine Glucose (UA) Negative (Negative) Urine Ketones Negative (Negative) Urine Blood Negative (Negative) Urine Nitrite Negative (Negative) Urine Bilirubin Negative (Negative) Urine Urobilinogen Negative (Negative) Ur Leukocyte Esterase Negative (Negative) POC Ur Test NEG (NEG) Nasal Screen MRSA (PCR) (Negative) Salicylates (2.8-20) mg/dl Urine Opiates Screen Neg (Neg) Ur Methadone, Qual Neg (Neg) Acetaminophen (10-30) ug/ml Urine Barbiturates Neg (Neg) Ur Phencyclidine (PCP) Neg (Neg) U Amphetamin/Meth Scrn Neg (Neg) MDMA (Ecstasy) Screen Neg (Neg) U Benzodiazepines Scrn Neg (Neg) Ur Cocaine Metabolite Neg (Neg) U Marijuana (THC) Screen Neg (Neg) Ethyl Alcohol mg/dL (0-3) mg/dl 11/10/18 11/10/18 11/10/18 Range/Units 09:49 09:49 09:49 WBC 8.07 (4.8-10.8) K/uL RBC 4.90 (4.2-5.4) M/uL Hgb 12.5 (12.0-16.0) g/dL Hct 38.7 (37-47) % MCV 79.0 L (80-100) fL MCH 25.5 (25-34) pg MCHC 32.3 (32-36) g/dL RDW Std Deviation 45.6 (36.4-46.3) fL RDW Coeff of Bernard 15.7 H (11.5-14.5) % Plt Count 383 (130-400) K/uL MPV 9.3 (7.4-10.4) fL Immature Gran % (Auto) 0.2 % Neut % (Auto) 73.3 % Lymph % (Auto) 20.0 % Mason % (Auto) 5.8 % Eos % (Auto) 0.5 % Baso % (Auto) 0.2 % Immature Gran # (Auto) 0.02 (0.00-0.02) K/uL Neut # (Auto) 5.91 (1.4-6.5) K/uL Lymph # (Auto) 1.61 (1.2-3.4) K/uL Mason # (Auto) 0.47 (0.11-0.59) K/uL Eos # (Auto) 0.04 (0-0.5) K/uL Baso # (Auto) 0.02 (0-0.2) K/uL Sodium 138 (136-145) mmol/L Potassium 3.8 (3.5-5.1) mmol/L Chloride 105 (98-107) mmol/L Carbon Dioxide 27 (21-32) mmol/L Anion Gap 6.0 (3-11) BUN 8 (7-18) mg/dl Creatinine 0.76 (0.6-1.2) mg/dl Est Cr Clr Drug Dosing 87.5 ml/min Est GFR ( Amer) 116.1 Est GFR (Non-Af Amer) 100.2 BUN/Creatinine Ratio 11.1 (10-20) Glucose 100 H (70-99) mg/dl Calcium 9.1 (8.5-10.1) mg/dl Total Bilirubin 0.7 (0.2-1) mg/dl AST 12 L (15-37) U/L ALT 16 (12-78) U/L Alkaline Phosphatase 85 (45-117) U/L Total Protein 7.7 (6.4-8.2) gm/dl Albumin 4.3 (3.4-5.0) gm/dl Globulin 3.4 (2.5-4.0) gm/dl Albumin/Globulin Ratio 1.3 (0.9-2) TSH 1.250 (0.300-4.500) uIu/ml Urine Color Urine Appearance (Clear) Urine pH (4.5-7.5) Ur Specific [place] (1.000-1.030) Urine Protein (Negative) Urine Glucose (UA) (Negative) Urine Ketones (Negative) Urine Blood (Negative) Urine Nitrite (Negative) Urine Bilirubin (Negative) Urine Urobilinogen (Negative) Ur Leukocyte Esterase (Negative) POC Ur Test (NEG) Nasal Screen MRSA (PCR) (Negative) Salicylates < 1.7 L (2.8-20) mg/dl Urine Opiates Screen (Neg) Ur Methadone, Qual (Neg) Acetaminophen < 2 L (10-30) ug/ml Urine Barbiturates (Neg) Ur Phencyclidine (PCP) (Neg) U Amphetamin/Meth Scrn (Neg) MDMA (Ecstasy) Screen (Neg) U Benzodiazepines Scrn (Neg) Ur Cocaine Metabolite (Neg) U Marijuana (THC) Screen (Neg) Ethyl Alcohol mg/dL (0-3) mg/dl 11/10/18 11/10/18 Range/Units 09:49 10:39 WBC (4.8-10.8) K/uL RBC (4.2-5.4) M/uL Hgb (12.0-16.0) g/dL Hct (37-47) % MCV (80-100) fL MCH (25-34) pg MCHC (32-36) g/dL RDW Std Deviation (36.4-46.3) fL RDW Coeff of Bernard (11.5-14.5) % Plt Count (130-400) K/uL MPV (7.4-10.4) fL Immature Gran % (Auto) % Neut % (Auto) % Lymph % (Auto) % Mason % (Auto) % Eos % (Auto) % Baso % (Auto) % Immature Gran # (Auto) (0.00-0.02) K/uL Neut # (Auto) (1.4-6.5) K/uL Lymph # (Auto) (1.2-3.4) K/uL Mason # (Auto) (0.11-0.59) K/uL Eos # (Auto) (0-0.5) K/uL Baso # (Auto) (0-0.2) K/uL Sodium (136-145) mmol/L Potassium (3.5-5.1) mmol/L Chloride (98-107) mmol/L Carbon Dioxide (21-32) mmol/L Anion Gap (3-11) BUN (7-18) mg/dl Creatinine (0.6-1.2) mg/dl Est Cr Clr Drug Dosing ml/min Est GFR ( Amer) Est GFR (Non-Af Amer) BUN/Creatinine Ratio (10-20) Glucose (70-99) mg/dl Calcium (8.5-10.1) mg/dl Total Bilirubin (0.2-1) mg/dl AST (15-37) U/L ALT (12-78) U/L Alkaline Phosphatase (45-117) U/L Total Protein (6.4-8.2) gm/dl Albumin (3.4-5.0) gm/dl Globulin (2.5-4.0) gm/dl Albumin/Globulin Ratio (0.9-2) TSH (0.300-4.500) uIu/ml Urine Color Urine Appearance (Clear) Urine pH (4.5-7.5) Ur Specific [place] (1.000-1.030) Urine Protein (Negative) Urine Glucose (UA) (Negative) Urine Ketones (Negative) Urine Blood (Negative) Urine Nitrite (Negative) Urine Bilirubin (Negative) Urine Urobilinogen (Negative) Ur Leukocyte Esterase (Negative) POC Ur Test (NEG) Nasal Screen MRSA (PCR) Positive A (Negative) Salicylates (2.8-20) mg/dl Urine Opiates Screen (Neg) Ur Methadone, Qual (Neg) Acetaminophen (10-30) ug/ml Urine Barbiturates (Neg) Ur Phencyclidine (PCP) (Neg) U Amphetamin/Meth Scrn (Neg) MDMA (Ecstasy) Screen (Neg) U Benzodiazepines Scrn (Neg) Ur Cocaine Metabolite (Neg) U Marijuana (THC) Screen (Neg) Ethyl Alcohol mg/dL < 3.0 (0-3) mg/dl Blood Pressure Blood Pressure Findings: Normal blood pressure MDM Narrative This is a 38-year-old female who presents emergency department complaining of mood disorder. The patient admits to having C suicidal ideation here in the emergency department. She was medically cleared by me. She was independently evaluated by case management as well as 3 S. who subsequently admitted her. Patient and family were in agreement with the treatment plan. Impression & Plan Mood disorder Discharge Plan Visit Data *Final* Discharge Date/Time: 11/10/18 13:49 Chief Complaint: Mental Health Evaluation Stated Complaint: severe anxiety, cant sleep, depressed ED Provider: Wili Freire Discharge Problem: Mood disorder Patient Disposition: Admitted As Inpatient Discharge Instructions Interventions: ED Discharge Assessment Last Done: 11/10/18 13:49 The dana's documentation has been prepared under my direction and personally reviewed by me in its entirety. I confirm that the note above accurately reflects all work, treatment, procedures, and medical decision making performed by me.
[2018-11-10 11:14] VITALS: O2SAT 100
[2018-11-10] MEDS ORDERED: SODIUM CHLORIDE 0.65% NA SOLN 45 ML (OCEAN) PRN (14:13)
[2018-11-10] MEDS ORDERED: BISMUTH SUBSALICYLATE PER ML OMNICELL CHARGE PO PRN (14:13)
[2018-11-10] MEDS ORDERED: ALUMINUM/MAGNESIUM SUSP 30 ML UDC PO PRN (14:13)
[2018-11-10] MEDS ORDERED: ACETAMINOPHEN 325 MG TAB PO PRN (14:13)
[2018-11-10] MEDS ORDERED: MAGNESIUM HYDROXIDE SUSP 30 ML UDC PO PRN (14:13)
[2018-11-10] MEDS: LORazepam 0.5 MG TAB PO PRN (21:14)
[2018-11-11] MEDS: POLYETHYLENE (MIRALAX) 17 GM PACK PO SCH (08:49)
[2018-11-11] MEDS: LORazepam 0.5 MG TAB PO PRN (09:35)
--- NOTE | 2018-11-11 11:03 | History & Physical ---
Date of Service November 11, 2018 Impression / Recommendations Impression 38-year-old woman admitted to our unit voluntarily with depression anxiety and suicidality. She has not been on medications as she has been breast-feeding her youngest child but stopped that within the last several weeks. She is agreeable to medication trials although is hesitant and anxious about being put on too many. We have agreed to start one medication at a time and today agrees to retrial Effexor XR which she says she did well on in the past. We will start at 37.5 mg today increasing to 75 mg tomorrow. She describes many classic ADHD symptoms, did not like stimulants and has discussed a trial of Strattera with her outpatient provider. We will not initiate at this time in deference to the patient's desire to minimize the number of medications but this could be considered if improving her mood and anxiety does not help focus and concentration. We will need a family meeting with her . We will coordinate with her current outpatient providers. It is difficult at this point to tease out whether her mood and anxiety are making her ADHD symptoms worse or the other way around. At this time however she does require inpatient mental health treatment due to the severity of her symptoms, feeling unable to function outside of a structured environment. (1) Depression: 11/11 - Retrial Effexor XR 37.5 mg today increasing to 75 mg tomorrow - Obtain OP records and coordinate with current providers - Family meeting with - Encourage participation in group and individual counseling - Q 15 min checks for safety - Safety planning - Assist the patient to explore healthy coping strategies (2) Anxiety: 11/11 - Effexor XR as above - Assist the patient to explore mindfulness, grounding exercises (3) ADHD (attention deficit hyperactivity disorder): 11/11 - Patient with symptoms of impaired focus/concentration, distractability - Declines ADHD meds at this time but willing to consider Strattera in the future Present on Admission?: Yes Inventory Assets Strengths: Love of children and Needs: To remain in psychiatric treatment and complying with treatment recommendations Risk Factors Assessment Male: No : Yes Do You Have Access To A Gun?: No Health Problems: No Mental Health Diagnoses: Yes Substance Use Disorders: No Previous Attempt: Yes Family History of Suicide: No Previous Psychiatric Hospitalization: Yes Smoker: No Protective Factors Assessment : Yes Responsible for Young Children: Yes Employed: Yes ([id number] Mom of two small children (2yrs & 10mo)) Stable Relationships: Yes Supportive Family: Yes Good Rapport with Provider: Yes Psychiatric History Identifying Data ALYSA TORRES is a 38-year-old F who presented to the emergency department yesterday with complaints of anxiety, depression and suicidal thinking. She is admitted voluntarily. Information is gathered from the patient and considered to be reliable. Chief Complaint "I have been very confused.". History of Present Illness Manda is a 38-year-old woman who we know from previous admissions to our unit. She is currently in treatment with Dr. Eleuterio Holguin for ADHD, PTSD, depression and anxiety. She reports that she last saw Dr. Holguin on of last week when she was in crisis. She reports he recommended starting on Ativan and Cymbalta but she has not taken the Cymbalta and only 2 doses of Ativan. She feels that she has been increasingly depressed and anxious, questioning her ability to be a good and mother. She feels that she lacks the appropriate focus and concentration to be able to care for her children and fears that these inabilities will lead to something destructive for she and her children. She describes feeling "all over the place", unable to figure out what she needs or wants out of life. She says that she has "always relied on others" to manage her life and now finds she is struggling to do it for herself. When we last saw this patient several years ago, she had been in a same-sex relationship that she now describes as dysfunctional. She always knew she wanted to , have a and children but now questions whether or not she is able to manage her children who are currently about 1 and 2-1/2 years old. She feels a lot of guilt because she has to ask for her 's help at night when the children get up when he has to get up and go to work in the morning. She feels she is increasingly emotionally labile with times when she gets so upset that she "explodes" meaning that she yells. Yesterday, she felt like she was not able to take care of her children describes her house as "destroyed, and felt that everything was going wrong. She then presented to the emergency department for evaluation. Today she describes herself as "depressed", "not happy". She admits to having suicidal thoughts but denies ever having a plan or intent. She reports that her sleep is been impaired recently feeling overwhelmed at night, hearing noises in addition to the fact that her snores. Her anxiety is high leading her to feel like not eating. She describes periods of panic when she "cannot re gulate her emotions". She is not currently being treated for ADHD as she has not wanted to take medications when she was breast-feeding however stopped breast-feeding in the last week or so. She describes herself as easily distracted, misplacing things easily, and cannot focus on anything for a prolonged period. Her anxiety has a large part to do with what other people think of her. She worries that whatever decision she makes as apparent will be judged by others. 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 She admits that her wants for her to figure out what she wants to do with her life and what will make her happy and she is not sure how to do that. She denies that she is having any auditory or visual hallucinations but talks about some paranoid themes, specifically worrying that her is being unfaithful. She denies any eating disordered symptoms. She denies any periods of elevated m ood, decreased need for sleep or increase in goal-directed activities that would be congruent with a bipolar disorder. Past Psychiatric History Current Psychiatric Diagnosis: anxiety, depression, ocd, adhd. Outpatient Services: Dr. Holguin, Qiana Kaufman for therapy, Albertina case management director through [facility] Previous Psych Admissions: [facility], [facility], most recently [facility] 2 years ago Do You Have Access To A Gun?: No History of Previous Suicide Attempt: Yes Describe Attempts in the Past: Several overdoses about 3-4 years ago Past Medication Trials: Concertamade her feel angry and paranoid Adderallbad withdrawal Cymbalta Effexorfelt she did well on it Zyprexa Wellbutrin Prozacdid not work Past Head Trauma/Neuro History History of Concussion/Seizure: Yes "Mild cerebral palsy" Allergies Allergy/AdvReac Type Severity Reaction Status Date / Time oxycodone Allergy Intermediate RASH Verified 11/10/18 09:34 codeine Allergy Mild HIVES Verified 11/10/18 09:34 benztropine Allergy Unknown itchy rash Verified 11/10/18 09:34 carbamazepine Allergy Unknown Unknown Verified 11/10/18 09:34 fluoxetine Allergy Unknown UNSURE Verified 11/10/18 09:34 Home Medications Home Medications Medication Instructions Recorded Confirmed Type lorazepam 0.5 mg PO TID PRN 11/10/18 11/10/18 History polyethylene glycol 3350 [Miralax] 17 g PO DAILY 11/10/18 11/10/18 History Family History Family History of: Bipolar Family Mental Health History Comment: cousin with bipolar Alcohol History Hx of Alcohol Use Over the Past 12 Months: No (denies) AUDIT Total Score: 1 Smoking Use Have You Smoked or Used Tobacco Products in the Last 30 Days: No Smoking Status: Never smoker Substance History Hx of Prescription Med Misuse Over the Past 12 Months: No Hx of Over the Counter Med Misuse Over the Past 12 Months: No Hx of Inhalent Misuse Over the Past 12 Months: No Hx of Organic Substance Use Over the Past 12 Months: No Hx of Illegal Substances/Street Drug Use Over Past 12 Months: No Problems as a Result of Past Substance Use: None Identified Personal History Living Arrangements: Home Childhood: Raised by both parents. She has 2 brothers and a twin sister. Highest Grade Completed: High School Graduate Highest Grade Completed Comment: associates degree in medical offices. Employment Status: Disabled Marital Status: Number Of Children: 2, ages 1 and 2-1/2 Beliefs That Will Affect Care: None Current Legal Problems: No Hx Legal Problems: No Hx Traumatic Life Events: Yes Psychological Trauma History Comment: Describes a "dysfunctional family", and trying to figure out her last same-sex relationship and what went on Patient History Medical History Anxiety (Chronic) Depression (Chronic) OCD (obsessive compulsive disorder) (Chronic) ADHD (attention deficit hyperactivity disorder) (Chronic) Abdominal pain affecting Back pain affecting Codeine overdose (Acute) Dehydration (Acute) Depression (Acute) Eating disorder (Acute) Foreign body (FB) in soft tissue (Acute) Headache (Acute) Hives (Acute) Overdose of nonsteroidal anti-inflammatory drug (NSAID) (Acute) Sore throat (Acute) Suicidal ideation (Acute) Traumatic injury during Tylenol overdose (Acute) UTI (urinary tract infection) (Acute) Vomiting (Acute) Weakness (Acute) Family History Other No significant family history Social History Preferred Language: Dutch Communication Ability: Effective Beliefs That Will Affect Care: None marital status: Single Current Living Situation: Family current occupational status: employed Feels Safe at Home: Hesitant to Answer Smoking Status: Never smoker Review of Systems All systems reviewed & are unremarkable except as noted in HPI & below Gastrointestinal: + constipation (Last BM today) Physical Exam Mental Examination Exam performed by Dr. Freire in the emergency department has been reviewed and accepted as medical clearance for our unit Psychiatric Orientation: alert and cooperative Apperance: appropriately dressed and appropriately groomed Eye Contact: + fair eye contact Motor Behavior: + psychomotor agitation (Frequently repositioning, curling up in the chair) Speech: normal rate/rhythm/volume of speech Affect: + depressed affect and + anxious affect Mood: + depressed mood and + anxious mood Thought Process: + thought process not clear or coherent Thought Content: + cognitive distortions Suicidal Thoughts: denies suicidal plan and denies suicidal intent; + reports suicidal thoughts Homicidal Thoughts: denies homicidal thoughts Hallucinations: no auditory hallucinations and no visual hallucinations Cognition: recent memory grossly intact, remote memory grossly intact and language grossly intact; + attention not intact Estimated Intelligence: average estimated intelligence Insight: + impaired insight Judgement: + impaired judgement Vital Signs (Past 24 Hours) Last Vital Signs Temp 36.6 C 11/11/18 06:38 Pulse 86 11/11/18 06:39 Resp 16 11/11/18 06:38 BP 120/81 11/11/18 06:39 Pulse Ox 100 11/10/18 13:49 Results & Data Laboratory Results Laboratory Results - last 24 hr 11/10/18 10:39 Nasal Screen MRSA (PCR) Positive A Current Inpatient Medications Current Inpatient Medications: Current Inpatient Medications Acetaminophen (Tylenol) 650 mg PO Q4H PRN PRN Reason: Headache or Minor Fever Stop: 12/10/18 14:12 Al Hydrox/Mg Hydrox/Simethicone (Maalox) 30 ml PO Q4H PRN PRN Reason: GI Upset Stop: 12/10/18 14:12 Bismuth Subsalicylate (Kaopectate) 15 ml PO PRN PRN PRN Reason: Loose Stool Stop: 12/10/18 14:12 Hydroxyzine HCl (Vistaril) 50 mg PO HSZ PRN PRN Reason: Insomnia Stop: 12/10/18 14:12 Last Admin: 11/10/18 21:49 Dose: 50 mg Documented by: Hydroxyzine HCl (Vistaril) 25 mg PO Q4H PRN PRN Reason: Anxiety Stop: 12/10/18 14:12 Lorazepam (Ativan) 0.5 mg PO TID PRN PRN Reason: Anxiety Stop: 12/10/18 14:13 Last Admin: 11/11/18 09:35 Dose: 0.5 mg Documented by: Magnesium Hydroxide (Milk Of Magnesia) 30 ml PO DAILY PRN PRN Reason: Heartburn Stop: 12/10/18 14:12 Polyethylene Glycol (Miralax Powder Packet) 17 gm PO DAILY OJ Stop: 12/11/18 08:59 Last Admin: 11/11/18 08:49 Dose: Not Given Documented by: Sodium Chloride ([place] Nasal) 1 - 2 sprays NA PRN PRN PRN Reason: Nasal Dryness/Congestion Stop: 12/10/18 14:12 CPT Code CPT Code Initial Hospital Care: 61197
[2018-11-11] MEDS ORDERED: VENLAFAXINE HCL XR 37.5 MG CAPXR PO STA (11:12)
[2018-11-12] MEDS: VENLAFAXINE HCL XR 75 MG CAPXR PO SCH (08:01)
[2018-11-12] MEDS: POLYETHYLENE (MIRALAX) 17 GM PACK PO SCH (08:02)
--- NOTE | 2018-11-12 10:10 | Psychiatric Progress Note ---
Date of Service November 12, 2018 Impression / Recommendations Impression Much the same as yesterday; having trouble focusing, still feeling depressed and unable to function. Effexor goes to 75 mg today. Consider further titration in the next day or two. Although thoughts not clearly psychotic, they are distorted and if this progresses, may well benefit from an antipsychotic medications. Family meeting is scheduled . (1) Depression: 11/11 - Retrial Effexor XR 37.5 mg today increasing to 75 mg tomorrow - Obtain OP records and coordinate with current providers - Family meeting with - Encourage participation in group and individual counseling - Q 15 min checks for safety - Safety planning - Assist the patient to explore healthy coping strategies 11/12 - Effexor to 75 mg today - Consider adding antipsychotic if distorted thoughts progress - Family meeting (2) Anxiety: 11/11 - Effexor XR as above - Assist the patient to explore mindfulness, grounding exercise 11/12 - As above (3) ADHD (attention deficit hyperactivity disorder): 11/11 - Patient with symptoms of impaired focus/concentration, distractability - Declines ADHD meds at this time but willing to consider Strattera in the future Inventory Assets Strengths: Love of children and Needs: To remain in psychiatric treatment and complying with treatment recommendations Risk Factors Assessment Male: No : Yes Do You Have Access To A Gun?: No Health Problems: No Mental Health Diagnoses: Yes Substance Use Disorders: No Previous Attempt: Yes Family History of Suicide: No Previous Psychiatric Hospitalization: Yes Smoker: No Protective Factors Assessment : Yes Responsible for Young Children: Yes Employed: Yes ([id number] Mom of two small children (2yrs & 10mo)) Stable Relationships: Yes Supportive Family: Yes Good Rapport with Provider: Yes Interval History Identifying Information 38 yo woman admitted voluntarily with severe depression and anxiety, feeling unable to function at home as a mother and . Chief Complaint "I'm confused. ". Review of Systems Sleep Information Total Hours of Sleep: 8 Sleep Comments: pt on q-15 minute checks Meal Information Percent Meal Consumed - Breakfast: 50 Percent Meal Consumed - Lunch: 100 Percent Meal Consumed - Dinner: 100 Subjective Subjective Patient was seen & assessed and interval progress reviewed with Treatment Team. The patient continues to struggle today saying that she is confused and having trouble organizing her thoughts. She remains depressed saying she feels tired, doesn't feel like taking care of her children, and has gone to the extreme of thinking that maybe she should give her children up or separate from her and let him have them. She again says that she hasn't done herself any favors b y having relied on others all her life to manage her. She reports that her mood is "worse" today but denies SI. Her visited last night and they talked about ways that they can work better together as a couple. She denies overt symptoms of psychosis, but is distorting her thoughts, saying that she is worried that her inability to care for her children will harm them. She acknowledges the need to reach out to others for socialization and support and asked if the staff could help her explore organizations in the community that she could join. She reports difficulty falling asleep last night, but appetite has been OK. Physical Exam Psychiatric Orientation: alert and cooperative Apperance: appropriately dressed and appropriately groomed Eye Contact: + poor eye contact Motor Behavior: + psychomotor agitation (frequently repositioning) quiet at times, halting when trying to gather her thoughts. Affect: + anxious affect Mood: + depressed mood and + anxious mood Thought Process: + thought process not clear or coherent Thought Content: + cognitive distortions Suicidal Thoughts: denies suicidal thoughts Homicidal Thoughts: denies homicidal thoughts Hallucinations: no auditory hallucinations and no visual hallucinations Cognition: recent memory grossly intact, remote memory grossly intact, attention grossly intact and language grossly intact Estimated Intelligence: consistent with education level Insight: + impaired insight Judgement: + impaired judgement Vital Signs (Past 24 Hours) Last Vital Signs Temp 37.1 C 11/12/18 06:40 Pulse 116 H 11/12/18 06:40 Resp 18 11/12/18 06:40 BP 129/81 11/12/18 06:40 Pulse Ox 100 11/10/18 13:49 Results & Data Current Inpatient Medications Current Inpatient Medications: Current Inpatient Medications Acetaminophen (Tylenol) 650 mg PO Q4H PRN PRN Reason: Headache or Minor Fever Stop: 12/10/18 14:12 Al Hydrox/Mg Hydrox/Simethicone (Maalox) 30 ml PO Q4H PRN PRN Reason: GI Upset Stop: 12/10/18 14:12 Bismuth Subsalicylate (Kaopectate) 15 ml PO PRN PRN PRN Reason: Loose Stool Stop: 12/10/18 14:12 Hydroxyzine HCl (Vistaril) 50 mg PO HSZ PRN PRN Reason: Insomnia Stop: 12/10/18 14:12 Last Admin: 11/10/18 21:49 Dose: 50 mg Documented by: Hydroxyzine HCl (Vistaril) 25 mg PO Q4H PRN PRN Reason: Anxiety Stop: 12/10/18 14:12 Lorazepam (Ativan) 0.5 mg PO TID PRN PRN Reason: Anxiety Stop: 12/10/18 14:13 Last Admin: 11/11/18 09:35 Dose: 0.5 mg Documented by: Magnesium Hydroxide (Milk Of Magnesia) 30 ml PO DAILY PRN PRN Reason: Heartburn Stop: 12/10/18 14:12 Polyethylene Glycol (Miralax Powder Packet) 17 gm PO DAILY OJ Stop: 12/11/18 08:59 Last Admin: 11/12/18 08:02 Dose: Not Given Documented by: Sodium Chloride ([place] Nasal) 1 - 2 sprays NA PRN PRN PRN Reason: Nasal Dryness/Congestion Stop: 12/10/18 14:12 Venlafaxine HCl (Effexor Extended Release) 75 mg PO QAM OJ Stop: 12/12/18 08:59 Last Admin: 11/12/18 08:01 Dose: 75 mg Documented by: Post Discharge Appointments Primary Care Physician Name Of Family Doctor: Dr. Rachel Casey [facility] Time of Appointment with PCP: follow up as needed. Provider Appointment Comment: [address], [place] [id number] Psychiatrist Name of Psychiatrist: Dr. Holguin [facility] Psychiatrist's Date of Appointment with Psychiatrist: 11/14/18 Psychiatric Appointment Comment: [address], [place] [address] Therapist Name of Therapist: Qiana Kaufman, PHD - [facility] Therapist's Date of Therapist Appointment: 11/13/18 Time of Therapist Appointment: 2pm Therapy Appointment Comment: [address], [place] [address] Milk Bottler Name of Milk Bottler: Ary DALE Phone Number for Milk Bottler: [phone] Date of Appointment with Milk Bottler: 11/20/18 Time of Appointment with Milk Bottler: 10am Case Management Appointment Comment: she will come to your home. Contact Information Discharge Discharge Address: [address] [place] [address] CPT Code CPT Code 04140
[2018-11-13 06:39] VITALS: TEMP 98.2
--- NOTE | 2018-11-13 08:24 | Psychiatric Progress Note ---
Date of Service November 13, 2018 Impression / Recommendations (1) Depression: 11/11 - Retrial Effexor XR 37.5 mg today increasing to 75 mg tomorrow - Obtain OP records and coordinate with current providers - Family meeting with - Encourage participation in group and individual counseling - Q 15 min checks for safety - Safety planning - Assist the patient to explore healthy coping strategies 11/12 - Effexor to 75 mg today - Consider adding antipsychotic if distorted thoughts progress - Family meeting 11/13 - Anxiety and depression continue and are impairing, recommend increasing venlafaxine XR to 112.5mg daily, which patient was initially reluctant to agree to d/t fear of it making her tired or paranoid, but agreed to after discussion. We will monitor closely for side effects here, and advised her we can reduce the dose if she experiences intolerable side effects. - Family meeting with , mother, and rn case manager hospice tomorrow. Encouraged her to start working on her discharge plan, specifically identifying what her supports could help her with. - Continue group attendance and participation, work on healthy coping skills and discharge safety plan. - Coordinate care with outpatient psychiatrist, Dr. Holguin. (2) Anxiety: 11/11 - Effexor XR as above - Assist the patient to explore mindfulness, grounding exercise 11/12 - As above 11/13 -Increase venlafaxine XR as above. She will likely need a higher dose to address her anxiety. Continue hydroxyzine and lorazepam as needed for severe anxiety. (3) ADHD (attention deficit hyperactivity disorder): 11/11 - Patient with symptoms of impaired focus/concentration, distractibility - Declines ADHD meds at this time but willing to consider Strattera in the future Inventory Assets Strengths: Love of children and Needs: To remain in psychiatric treatment and complying with treatment recommendations Risk Factors Assessment Male: No : Yes Do You Have Access To A Gun?: No Health Problems: No Mental Health Diagnoses: Yes Substance Use Disorders: No Previous Attempt: Yes Family History of Suicide: No Previous Psychiatric Hospitalization: Yes Smoker: No Protective Factors Assessment : Yes Responsible for Young Children: Yes Employed: Yes ([id number] Mom of two small children (2yrs & 10mo)) Stable Relationships: Yes Supportive Family: Yes Good Rapport with Provider: Yes Interval History Identifying Information ALYSA TORRES is a 38-year-old F who was admitted voluntarily on 11/10/18 for anxiety, depression and suicidal thinking. Chief Complaint "It's been different here...hard to focus". Review of Systems Notes 1 bowel movement daily, loose stool. Mild nausea. Sleep Information Total Hours of Sleep: 5.75 Sleep Comments: pt on q-15 minute checks Meal Information Percent Meal Consumed - Breakfast: 50 Percent Meal Consumed - Lunch: 75 Percent Meal Consumed - Dinner: 50 Subjective Subjective Patient was seen & assessed and interval progress reviewed with Treatment Team. Staff report she remains severely depressed, tearful, anxious, and talked about feeling unable to care for her children. She reports ongoing negative thoughts about herself and her ability to be a good parent, and guilt that her mother has to help her at times. She appears very anxious in her interactions with others. On my assessment, she reports feeling "kind of confused" and overwhelmed by the noise from construction on the unit, saying it interferes with her ability to focus. She says she wants to go home as soon as possible, but feels she needs a plan to handle the stress at home first, and struggles to clarify how to go about that. She wants to put her children in daycare, but says she hasn't looked into it and doesn't know what the options are. She is hoping to ask her and mother for help with housework, and wants to find ways to get out of the house and go to community events. Mood remains depressed and overwhelmed, but she denies SI. Anxiety continues and is focused on how to manage her responsibilities at home. Sleep is fair, difficulty falling asleep at times. Appetite is "up and down." She initially denies side effects to medication, but later reports mild nausea and loose stool (1 bowel movement daily). She is very anxious about increasing the dose of her venlafaxine, stating she is worried it will make her "more tired" or will cause paranoia. She has been on this medication in the past and tolerated it well, but cannot recall what dose she was on. Physical Exam Psychiatric Orientation: alert and cooperative Apperance: + disheveled and appeared stated age Well-nourished well-developed female, seated in no acute distress, with knees pulled up to her chest, hunched over in the chair. Eye Contact: + fair eye contact Motor Behavior: steady gait and station and no abnormal motor movements Nonspontaneous, minimal Affect: + depressed affect, + anxious affect, + constricted affect and mood congruent with affect Mood: + depressed mood and + anxious mood Thought Process: + concrete thought process; + thought process not linear or logical Give short, vague answers Thought Content: + cognitive distortions and + hopelessness Suicidal Thoughts: denies suicidal thoughts Homicidal Thoughts: denies homicidal thoughts Hallucinations: no auditory hallucinations Cognition: attention grossly intact and language grossly intact Insight: + impaired insight Judgement: + impaired judgement Vital Signs (Past 24 Hours) Last Vital Signs Temp 36.8 C 11/13/18 06:37 Pulse 99 H 11/13/18 06:37 Resp 18 11/13/18 06:37 BP 127/86 11/13/18 06:37 Pulse Ox 100 11/10/18 13:49 Results & Data Current Inpatient Medications Current Inpatient Medications: Current Inpatient Medications Acetaminophen (Tylenol) 650 mg PO Q4H PRN PRN Reason: Headache or Minor Fever Stop: 12/10/18 14:12 Al Hydrox/Mg Hydrox/Simethicone (Maalox) 30 ml PO Q4H PRN PRN Reason: GI Upset Stop: 12/10/18 14:12 Bismuth Subsalicylate (Kaopectate) 15 ml PO PRN PRN PRN Reason: Loose Stool Stop: 12/10/18 14:12 Hydroxyzine HCl (Vistaril) 50 mg PO HSZ PRN PRN Reason: Insomnia Stop: 12/10/18 14:12 Last Admin: 11/12/18 23:09 Dose: 50 mg Documented by: Hydroxyzine HCl (Vistaril) 25 mg PO Q4H PRN PRN Reason: Anxiety Stop: 12/10/18 14:12 Lorazepam (Ativan) 0.5 mg PO TID PRN PRN Reason: Anxiety Stop: 12/10/18 14:13 Last Admin: 11/11/18 09:35 Dose: 0.5 mg Documented by: Magnesium Hydroxide (Milk Of Magnesia) 30 ml PO DAILY PRN PRN Reason: Heartburn Stop: 12/10/18 14:12 Polyethylene Glycol (Miralax Powder Packet) 17 gm PO DAILY OJ Stop: 12/11/18 08:59 Last Admin: 11/12/18 08:02 Dose: Not Given Documented by: Sodium Chloride ([place] Nasal) 1 - 2 sprays NA PRN PRN PRN Reason: Nasal Dryness/Congestion Stop: 12/10/18 14:12 Venlafaxine HCl (Effexor Extended Release) 75 mg PO QAM OJ Stop: 12/12/18 08:59 Last Admin: 11/12/18 08:01 Dose: 75 mg Documented by: Post Discharge Appointments Primary Care Physician Name Of Family Doctor: [facility] Time of Appointment with PCP: follow up as needed. Provider Appointment Comment: [address], [place] [address] Psychiatrist Name of Psychiatrist: Dr. Holguin [facility] Psychiatrist's Date of Appointment with Psychiatrist: 11/14/18 Psychiatric Appointment Comment: [address], [place] [address] Therapist Name of Therapist: Qiana Kaufman, PHD - [facility] Therapist's Date of Therapist Appointment: 11/13/18 Time of Therapist Appointment: 2pm Therapy Appointment Comment: [address], [place] [address] Arcade Attendant Name of Arcade Attendant: Ary DALE Phone Number for Arcade Attendant: [phone] Date of Appointment with Arcade Attendant: 11/20/18 Time of Appointment with Arcade Attendant: 10am Case Management Appointment Comment: she will come to your home. Contact Information Discharge Discharge Address: [address] [place] [id number] CPT Code CPT Code 31567
[2018-11-13] MEDS: VENLAFAXINE HCL XR 75 MG CAPXR PO SCH (08:44)
[2018-11-13] MEDS: POLYETHYLENE (MIRALAX) 17 GM PACK PO SCH (08:44)
[2018-11-13] MEDS: VENLAFAXINE HCL XR 37.5 MG CAPXR PO SCH (12:36)
[2018-11-14] MEDS: LORazepam 0.5 MG TAB PO PRN (07:15)
[2018-11-14] MEDS: VENLAFAXINE HCL XR 75 MG CAPXR PO SCH (08:38)
[2018-11-14] MEDS: VENLAFAXINE HCL XR 37.5 MG CAPXR PO SCH (08:38)
[2018-11-14] MEDS: POLYETHYLENE (MIRALAX) 17 GM PACK PO SCH ×2 (08:42→10:57)
--- NOTE | 2018-11-14 09:47 | Psychiatric Progress Note ---
Date of Service November 14, 2018 Impression / Recommendations Impression Much the same as yesterday; having trouble focusing, still feeling depressed and unable to function. Effexor goes to 75 mg today. Consider further titration in the next day or two. Although thoughts not clearly psychotic, they are distorted and if this progresses, may well benefit from an antipsychotic medications. Family meeting is scheduled . (1) Depression: 11/11 - Retrial Effexor XR 37.5 mg today increasing to 75 mg tomorrow - Obtain OP records and coordinate with current providers - Family meeting with - Encourage participation in group and individual counseling - Q 15 min checks for safety - Safety planning - Assist the patient to explore healthy coping strategies 11/12 - Effexor to 75 mg today - Consider adding antipsychotic if distorted thoughts progress - Family meeting 11/13 - Anxiety and depression continue and are impairing, recommend increasing venlafaxine XR to 112.5mg daily, which patient was initially reluctant to agree to d/t fear of it making her tired or paranoid, but agreed to after discussion. We will monitor closely for side effects here, and advised her we can reduce the dose if she experiences intolerable side effects. - Family meeting with , mother, and block and case maker tomorrow. Encouraged her to start working on her discharge plan, specifically identifying what her supports could help her with. - Continue group attendance and participation, work on healthy coping skills and discharge safety plan. - Coordinate care with outpatient psychiatrist, Dr. Holguin. (2) Anxiety: 11/11 - Effexor XR as above - Assist the patient to explore mindfulness, grounding exercise 11/12 - As above 11/13 -Increase venlafaxine XR as above. She will likely need a higher dose to address her anxiety. Continue hydroxyzine and lorazepam as needed for severe anxiety. (3) ADHD (attention deficit hyperactivity disorder): 11/11 - Patient with symptoms of impaired focus/concentration, distractibility - Declines ADHD meds at this time but willing to consider Strattera in the future Inventory Assets Strengths: Love of children and Needs: To remain in psychiatric treatment and complying with treatment recommendations Risk Factors Assessment Male: No : Yes Do You Have Access To A Gun?: No Health Problems: No Mental Health Diagnoses: Yes Substance Use Disorders: No Previous Attempt: Yes Family History of Suicide: No Previous Psychiatric Hospitalization: Yes Smoker: No Protective Factors Assessment : Yes Responsible for Young Children: Yes Employed: Yes ([id number] Mom of two small children (2yrs & 10mo)) Stable Relationships: Yes Supportive Family: Yes Good Rapport with Provider: Yes Interval History Identifying Information ALYSA TORRES is a 38-year-old F who was admitted voluntarily on 11/10/18 for anxiety, depression and suicidal thinking. Chief Complaint "[]". Review of Systems Sleep Information Total Hours of Sleep: 5 Sleep Comments: awake on 0230 rounds. came out to the nurses station shortly before 0600. she appeared anxious and tense. she was hyperventing and her shoulders were hunched up. she was unable to articulate what was happening. i helped her slow her breathing down. she was oriented to place and time. i reminded her she is safe here and she went back to her room. Meal Information Percent Meal Consumed - Breakfast: 100 Percent Meal Consumed - Lunch: 75 Percent Meal Consumed - Dinner: 10 Subjective Subjective Patient was seen & assessed and interval progress reviewed with [Treatment Team] [Nursing] Physical Exam Psychiatric Orientation: alert and cooperative Apperance: appropriately dressed, appropriately groomed, + disheveled and appeared stated age Eye Contact: + fair eye contact and + poor eye contact Motor Behavior: steady gait and station, no abnormal motor movements and + psychomotor agitation (frequently repositioning) Speech: normal rate/rhythm/volume of speech Affect: + depressed affect, + anxious affect, + constricted affect and mood congruent with affect Mood: + depressed mood and + anxious mood Thought Process: + concrete thought process; + thought process not linear or logical and + thought process not clear or coherent Thought Content: + cognitive distortions and + hopelessness Suicidal Thoughts: denies suicidal thoughts, denies suicidal plan and denies suicidal intent Homicidal Thoughts: denies homicidal thoughts Hallucinations: no auditory hallucinations and no visual hallucinations Cognition: recent memory grossly intact, remote memory grossly intact, attention grossly intact and language grossly intact Estimated Intelligence: average estimated intelligence and consistent with education level Insight: + impaired insight Judgement: + impaired judgement Vital Signs (Past 24 Hours) Last Vital Signs Temp 36.8 C 11/14/18 06:40 Pulse 121 H 11/14/18 06:40 Resp 18 11/14/18 06:40 BP 126/84 11/14/18 06:40 Pulse Ox 100 11/10/18 13:49 Results & Data Current Inpatient Medications Current Inpatient Medications: Current Inpatient Medications Acetaminophen (Tylenol) 650 mg PO Q4H PRN PRN Reason: Headache or Minor Fever Stop: 12/10/18 14:12 Al Hydrox/Mg Hydrox/Simethicone (Maalox) 30 ml PO Q4H PRN PRN Reason: GI Upset Stop: 12/10/18 14:12 Bismuth Subsalicylate (Kaopectate) 15 ml PO PRN PRN PRN Reason: Loose Stool Stop: 12/10/18 14:12 Hydroxyzine HCl (Vistaril) 50 mg PO HSZ PRN PRN Reason: Insomnia Stop: 12/10/18 14:12 Last Admin: 11/12/18 23:09 Dose: 50 mg Documented by: Hydroxyzine HCl (Vistaril) 25 mg PO Q4H PRN PRN Reason: Anxiety Stop: 12/10/18 14:12 Lorazepam (Ativan) 0.5 mg PO TID PRN PRN Reason: Anxiety Stop: 12/10/18 14:13 Last Admin: 11/14/18 07:15 Dose: 0.5 mg Documented by: Magnesium Hydroxide (Milk Of Magnesia) 30 ml PO DAILY PRN PRN Reason: Heartburn Stop: 12/10/18 14:12 Polyethylene Glycol (Miralax Powder Packet) 17 gm PO DAILY OJ Stop: 12/11/18 08:59 Last Admin: 11/14/18 08:42 Dose: Not Given Documented by: Sodium Chloride ([place] Nasal) 1 - 2 sprays NA PRN PRN PRN Reason: Nasal Dryness/Congestion Stop: 12/10/18 14:12 Venlafaxine HCl (Effexor Extended Release) 75 mg PO QAM OJ Stop: 12/12/18 08:59 Last Admin: 11/14/18 08:38 Dose: 75 mg Documented by: Venlafaxine HCl (Effexor Extended Release) 37.5 mg PO QAM OJ Stop: 12/13/18 11:59 Last Admin: 11/14/18 08:38 Dose: 37.5 mg Documented by: Post Discharge Appointments [facility] Care [facility] Time of Appointment with PCP: follow up as needed. Provider Appointment Comment: [address], [place] [address] Psychiatrist Name of Psychiatrist: Dr. Holguin [facility] Psychiatrist's Date of Appointment with Psychiatrist: 11/14/18 Psychiatric Appointment Comment: [address], [place] [address] Therapist Name of Therapist: Qiana Kaufman, PHD - [facility] Therapist's Date of Therapist Appointment: 11/13/18 Time of Therapist Appointment: 2pm Therapy Appointment Comment: [address], [place] [address] Fish Seiner Name of Fish Seiner: Ary DALE Phone Number for Fish Seiner: [phone] Date of Appointment with Fish Seiner: 11/20/18 Time of Appointment with Fish Seiner: 10am Case Management Appointment Comment: she will come to your home. Contact Information Discharge Discharge Address: [address] [place] [address] [place] [address] CPT Code CPT Code 37934 [id number]
--- NOTE | 2018-11-14 10:33 | Psychiatric Progress Note ---
Date of Service November 14, 2018 Impression / Recommendations Impression Remains severely depressed and anxious, with difficulty focusing, although suicidality is improving. Venlafaxine XR has been titrated to 112.5 mg daily, but she is reluctant to titrate further or discuss additional medications. Although thoughts not clearly psychotic, they are distorted, which has been an ongoing issue, although she is not open to antipsychotic medication at this time. Inpatient treatment remains medically necessary due to the severity of her symptoms, and ability to function and provide for her own basic needs as well as those of her children, and risk of rapid decompensation with harm to herself if discharged prematurely. (1) Depression: 11/11 - Retrial Effexor XR 37.5 mg today increasing to 75 mg tomorrow - Obtain OP records and coordinate with current providers - Family meeting with - Encourage participation in group and individual counseling - Q 15 min checks for safety - Safety planning - Assist the patient to explore healthy coping strategies 11/12 - Effexor to 75 mg today - Consider adding antipsychotic if distorted thoughts progress - Family meeting 11/13 - Anxiety and depression continue and are impairing, recommend increasing venlafaxine XR to 112.5mg daily, which patient was initially reluctant to agree to d/t fear of it making her tired or paranoid, but agreed to after discussion. We will monitor closely for side effects here, and advised her we can reduce the dose if she experiences intolerable side effects. - Family meeting with , mother, and senior case manager tomorrow. Encouraged her to start working on her discharge plan, specifically identifying what her supports could help her with. - Continue group attendance and participation, work on healthy coping skills and discharge safety plan. - Coordinate care with outpatient psychiatrist, Dr. Holguin. 11/14 -Family meeting held with mother and ; working on discharge plan to include increased family support for childcare. -Only mild improvement with respect to depressive and anxiety symptoms, but SI is improving. Have encouraged more rapid titration of venlafaxine XR, which she is resistant to. Consider dose increase to 150 mg daily tomorrow, as she is tolerating it well but remains symptomatic. (2) Anxiety: 11/11 - Effexor XR as above - Assist the patient to explore mindfulness, grounding exercise 11/12 - As above 11/13 -Increase venlafaxine XR as above. She will likely need a higher dose to address her anxiety. Continue hydroxyzine and lorazepam as needed for severe anxiety. (3) ADHD (attention deficit hyperactivity disorder): 11/11 - Patient with symptoms of impaired focus/concentration, distractibility - Declines ADHD meds at this time but willing to consider Strattera in the future Inventory Assets Strengths: Love of children and Needs: To remain in psychiatric treatment and complying with treatment recommendations Risk Factors Assessment Male: No : Yes Do You Have Access To A Gun?: No Health Problems: No Mental Health Diagnoses: Yes Substance Use Disorders: No Previous Attempt: Yes Family History of Suicide: No Previous Psychiatric Hospitalization: Yes Smoker: No Protective Factors Assessment : Yes Responsible for Young Children: Yes Employed: Yes ([id number] Mom of two small children (2yrs & 10mo)) Stable Relationships: Yes Supportive Family: Yes Good Rapport with Provider: Yes Interval History Identifying Information ALYSA TORRES is a 38-year-old F who was admitted voluntarily on 11/10/18 for anxiety, depression and suicidal thinking. Chief Complaint "I'd like to get back to work". Review of Systems Sleep Information Total Hours of Sleep: 5 Sleep Comments: awake on 0230 rounds. came out to the nurses station shortly before 0600. she appeared anxious and tense. she was hyperventing and her shoulders were hunched up. she was unable to articulate what was happening. i helped her slow her breathing down. she was oriented to place and time. i reminded her she is safe here and she went back to her room. Meal Information Percent Meal Consumed - Breakfast: 100 Percent Meal Consumed - Lunch: 75 Percent Meal Consumed - Dinner: 10 Subjective Subjective Patient was seen & assessed and interval progress reviewed with Nursing and social work. Staff report she remains depressed and anxious. She was seen during her family meeting with her mother and , and individually after the meeting. This physician during the meeting to answer questions about medication and treatment recommendations. See social work note for additional information. On my assessment of the patient, she reports ongoing depression, low self esteem, and self doubt, stating she doesn't think she should be raising her nancy montes, as she's "not capable, don't do well." She is unable to be more specific, and reflected back to her that her mother observed in the meeting that she has done a very good job parenting. Mood is "I don't know, I'm just confused, seems like psychiatric care is't even, they don't even do inpatient anymore, I just don't understand...I belong working." She is focused on all the things she thinks she should be doing, like working, but struggles to identify the barriers. She wants to know when she'll be discharged, but when asked how ready she feels, says "it's up to the staff isn't it?" She denies SI, and denies side effects to medications. She reports paranoia that the other patients "know who I am, know all about me," although recognizes this worry is likely not based in reality. She repeatedly says she feels "confused about how things work in here," but struggles to explain this further, and denies feeling unsafe here. Physical Exam Mental Examination Thin but well-nourished well-developed white female appearing her stated age. Casually dressed, adequate hygiene, limited grooming. Seated in no acute distress. Knees drawn up to chest, limited eye contact, cooperative with the assessment, but a limited historian at times with vague answers. Mood is "confused," and affect is restricted to depressed and anxious. Speech is nonspontaneous, soft. Thoughts are goal-directed but vague, requiring repeated requests for clarification, negative content. Denies SI, HI, and hallucinations, but reports paranoia that patient's no "all about my history." Alert and oriented. Level of intelligence estimated to be average. Insight and judgment are impaired. Vital Signs (Past 24 Hours) Last Vital Signs Temp 36.8 C 11/14/18 06:40 Pulse 121 H 11/14/18 06:40 Resp 18 11/14/18 06:40 BP 126/84 11/14/18 06:40 Pulse Ox 100 11/10/18 13:49 Results & Data Current Inpatient Medications Current Inpatient Medications: Current Inpatient Medications Acetaminophen (Tylenol) 650 mg PO Q4H PRN PRN Reason: Headache or Minor Fever Stop: 12/10/18 14:12 Al Hydrox/Mg Hydrox/Simethicone (Maalox) 30 ml PO Q4H PRN PRN Reason: GI Upset Stop: 12/10/18 14:12 Bismuth Subsalicylate (Kaopectate) 15 ml PO PRN PRN PRN Reason: Loose Stool Stop: 12/10/18 14:12 Hydroxyzine HCl (Vistaril) 50 mg PO HSZ PRN PRN Reason: Insomnia Stop: 12/10/18 14:12 Last Admin: 11/12/18 23:09 Dose: 50 mg Documented by: Hydroxyzine HCl (Vistaril) 25 mg PO Q4H PRN PRN Reason: Anxiety Stop: 12/10/18 14:12 Lorazepam (Ativan) 0.5 mg PO TID PRN PRN Reason: Anxiety Stop: 12/10/18 14:13 Last Admin: 11/14/18 07:15 Dose: 0.5 mg Documented by: Magnesium Hydroxide (Milk Of Magnesia) 30 ml PO DAILY PRN PRN Reason: Heartburn Stop: 12/10/18 14:12 Polyethylene Glycol (Miralax Powder Packet) 17 gm PO DAILY OJ Stop: 12/11/18 08:59 Last Admin: 11/14/18 08:42 Dose: Not Given Documented by: Sodium Chloride ([place] Nasal) 1 - 2 sprays NA PRN PRN PRN Reason: Nasal Dryness/Congestion Stop: 12/10/18 14:12 Venlafaxine HCl (Effexor Extended Release) 75 mg PO QAM OJ Stop: 12/12/18 08:59 Last Admin: 11/14/18 08:38 Dose: 75 mg Documented by: Venlafaxine HCl (Effexor Extended Release) 37.5 mg PO QAM OJ Stop: 12/13/18 11:59 Last Admin: 11/14/18 08:38 Dose: 37.5 mg Documented by: Post Discharge Appointments Primary Care Physician Name Of Family Doctor: Dr. Rachel Cespedes [facility] Time of Appointment with PCP: follow up as needed. Provider Appointment Comment: [address] [place] [address] Psychiatrist Name of Psychiatrist: Dr. Holguin [facility] Psychiatrist's Date of Appointment with Psychiatrist: 11/14/18 Psychiatric Appointment Comment: [address], [place] [address] Therapist Name of Therapist: Qiana Kaufman, PHD - [facility] Therapist's Date of Therapist Appointment: 11/13/18 Time of Therapist Appointment: 2pm Therapy Appointment Comment: [address] [facility] [address], [place] [address] Recording Studio Intern Name of Recording Studio Intern: Ary DALE Phone Number for Recording Studio Intern: [phone] Date of Appointment with Recording Studio Intern: 11/20/18 Time of Appointment with Recording Studio Intern: 10am Case Management Appointment Comment: she will come to your home. Contact Information Discharge Discharge Address: [address] [place] [address] [place] [address] CPT Code CPT Code 12924
--- NOTE | 2018-11-14 17:15 | Communication Note ---
Date of Service: November 14, 2018 Completed [id number] to discuss insurance coverage. Call at 5:00pm with Dr. Grace. Reviewed that the patient has continued to be severely depressed and a nxious on the unit, appearing very flat and limited ability to focus in groups. Pt has ongoing distorted and paranoid thoughts. Informed reviewer that patient continues to have cognitive distortions about her ability to care for her children, with only reasonable conclusion for the patient being that she should give them up. and mother were concerned during family meeting about several statements made by the patient and are likewise concerned about her ability to care for herself in the outpatient setting, given her level of depression and anxiety. Recommendation by reviewer was that patient no longer met criteria for inpatient treatment and reviewer would recommend outpatient follow-up. Insurance should be in touch with final decision.
[2018-11-15] MEDS: VENLAFAXINE HCL XR 75 MG CAPXR PO SCH (07:55)
[2018-11-15] MEDS: VENLAFAXINE HCL XR 37.5 MG CAPXR PO SCH (07:55)
[2018-11-15] MEDS: POLYETHYLENE (MIRALAX) 17 GM PACK PO SCH (07:55)
--- NOTE | 2018-11-15 10:35 | Psychiatric Progress Note ---
Date of Service November 15, 2018 Impression / Recommendations Impression Remains severely depressed and anxious, with difficulty focusing, although suicidality is improving. Venlafaxine XR has been titrated to 112.5 mg daily, but she is reluctant to titrate further or discuss additional medications. Although thoughts not clearly psychotic, they are distorted, which has been an ongoing issue, although she is not open to antipsychotic medication at this time. Inpatient treatment remains medically necessary due to the severity of her symptoms, and ability to function and provide for her own basic needs as well as those of her children, and risk of rapid decompensation with harm to herself if discharged prematurely. (1) Depression: 11/11 - Retrial Effexor XR 37.5 mg today increasing to 75 mg tomorrow - Obtain OP records and coordinate with current providers - Family meeting with - Encourage participation in group and individual counseling - Q 15 min checks for safety - Safety planning - Assist the patient to explore healthy coping strategies 11/12 - Effexor to 75 mg today - Consider adding antipsychotic if distorted thoughts progress - Family meeting 11/13 - Anxiety and depression continue and are impairing, recommend increasing venlafaxine XR to 112.5mg daily, which patient was initially reluctant to agree to d/t fear of it making her tired or paranoid, but agreed to after discussion. We will monitor closely for side effects here, and advised her we can reduce the dose if she experiences intolerable side effects. - Family meeting with , mother, and case management coordinator tomorrow. Encouraged her to start working on her discharge plan, specifically identifying what her supports could help her with. - Continue group attendance and participation, work on healthy coping skills and discharge safety plan. - Coordinate care with outpatient psychiatrist, Dr. Holguin. 11/14 -Family meeting held with mother and ; working on discharge plan to include increased family support for childcare. -Only mild improvement with respect to depressive and anxiety symptoms, but SI is improving. Have encouraged more rapid titration of venlafaxine XR, which she is resistant to. Consider dose increase to 150 mg daily tomorrow, as she is tolerating it well but remains symptomatic. 11/15 -The patient's condition has clearly deteriorated over the past 24 hours. She comes in and out of what appears to be something close to catatonia. In a group this morning she spontaneously apologized to everybody else in the group for "the bad things I have done" and for "being so rude to everybody." She was unable to accept feedback from the group which contradicted those assertions. In assessing her mental status today, the patient reference delusional believes, consistent with psychotic depression. Specifically, she told me that she wanted me to send her to snf because she is claiming disability and "ought to be working." -I advised the patient that I was recommending that we increase her dose of venlafaxine extended release from 112.5 mg daily to 150 mg daily. Also, clearly the patient is psychotic, and after some discussion the patient did agree to accept aripiprazole. We will start at 5 mg daily and increase as tolerated. (2) Anxiety: 11/11 - Effexor XR as above - Assist the patient to explore mindfulness, grounding exercise 11/12 - As above 11/13 -Increase venlafaxine XR as above. She will likely need a higher dose to address her anxiety. Continue hydroxyzine and lorazepam as needed for severe anxiety- 11/15 -Venlafaxine XR increased today to 150 mg daily. -Aripiprazole added. The patient will be given a test dose this morning and will be given a standing dose of 5 mg daily, with plan to titrate as indicated. Material risks and anticipated benefits of aripiprazole were reviewed with the patient, but it is not entirely clear that she was able to understand and this may need once she has cleared. It is hoped that the additional dose of aripiprazole will serve as an adjunct to venlafaxine and, within that context, may help with her clear anxiety. (3) ADHD (attention deficit hyperactivity disorder): 11/11 - Patient with symptoms of impaired focus/concentration, distractibility - Declines ADHD meds at this time but willing to consider Strattera in the future 11/15 -It is understood that the patient carries a known diagnosis of attention deficit hyperactivity disorder. However, her current psychotic depression is such that it is hard to distinguish what is difficulty concentrating associated with perceptual disturbances and gross confusion, and what is possibly related to an underlying primary attention deficit problem. Inventory Assets Strengths: Love of children and Needs: To remain in psychiatric treatment and complying with treatment recommendations Risk Factors Assessment Male: No : Yes Do You Have Access To A Gun?: No Health Problems: No Mental Health Diagnoses: Yes Substance Use Disorders: No Previous Attempt: Yes Family History of Suicide: No Previous Psychiatric Hospitalization: Yes Smoker: No Protective Factors Assessment : Yes Responsible for Young Children: Yes Employed: Yes ([id number] Mom of two small children (2yrs & 10mo)) Stable Relationships: Yes Supportive Family: Yes Good Rapport with Provider: Yes Interval History Identifying Information ALYSA TORRES is a 38-year-old F who was admitted voluntarily on 11/10/18 for anxiety, depression and suicidal thinking. Chief Complaint "I want to go home. I just want to go home". Review of Systems Sleep Information Total Hours of Sleep: 5.75 Sleep Comments: pt on q-15 minute checks Meal Information Percent Meal Consumed - Breakfast: 100 Percent Meal Consumed - Lunch: 100 Percent Meal Consumed - Dinner: 75 Subjective Subjective Patient was seen & assessed and interval progress reviewed with the the treatment Team. I met individually with the patient in order to assess her current status, evaluate her response to treatment, coordinate any necessary changes in the patient's treatment regimen with the patient, and address issues and concerns that may arise. The treatment team is quite concerned about the patient's condition today, which appears to have deteriorated. Similarly, we have been contacted by the patient's who shares our concerns in this regard. The patient has difficulty processing these concerns and seems unable to comprehend the nature of the concerns. When I asked the patient what had transpired that resulted in her being hospitalized, she told me that she "[did not] know." However, she makes reference to "all sorts of strange things happening everywhere," and clarifies by that she means here in the hospital as well as at home. She looks at me, and says "I do not even know who you are" although I had just been introduced to the patient by 1 of the social workers, and I had reintroduced myself upon entering the office. When I asked her if she believed that I was who I said I was she simply stared at me and did not respond after the question was asked several times. When I asked the patient for an example of the "strange things" that she reports, the patient responded by saying "look. Chest distant me to snf. I should go to snf. I am not working and I should." The patient does acknowledge that she is confused. She also is willing to tell me that she is experiencing auditory hallucinations. She does not describe the content when questioned, but adds "lots of them." The current discharge plan had included the patient going to live with her mother, while her would care for their 2 minor children. However, the patient tells me that while she plans to go stay with her mother, she expects the children to be with her and seems to have no insight into the fact that she is in no position to be able to care for her children. Most questions asked to the patient are met with blank stares or sudden bursts of agitation, coupled with statements such as "I just want to go home. I just want to be with my children." Physical Exam Psychiatric Orientation: oriented to person The patient is not oriented to situation. She tells me that she does not know what her diagnosis is. Apperance: + disheveled Eye Contact: + poor eye contact Motor Behavior: + psychomotor retardation The patient's speech is sparse, slowed, soft and generally nonspontaneous. Affect: + flat affect "I just want to go home." The patient otherwise declined to answer questions regarding her mood and seems to not clearly understand the purpose of the question. Thought Process: + thought blocking, + perseveration and + concrete thought process Thought Content: + delusions (The patient harbors delusions that are consistent with the diagnosis of major depressive disorder, with psychotic features. For example, she tells me that she deserves to go to snf because she is claiming disability and "should be working." The patient also makes vague references to "all sorts of strange things" that are going on at home as well as here in the hospital, but she is unable or unwilling to elaborate.), + worthlessness and + self deprecation Suicidal Thoughts: denies suicidal thoughts Homicidal Thoughts: denies homicidal thoughts Hallucinations: + auditory hallucinations The patient reports that she is hearing "a lot" of voices, including while I am interviewing her, and she often appears to be distracted by internal stimuli. Does not remember a great deal, and is not able to cooperate with formal testing Estimated Intelligence: + below average estimated intelligence Insight: + poor insight The patient does recognize her need for treatment, and at one point confirmed that she has carried a diagnosis of depression in the past (with prompting) Judgement: + poor judgement The patient seems unable to understand that she is currently too disorganized to be able to care for her own physical needs, let alone the needs of minor children. Vital Signs (Past 24 Hours) Last Vital Signs Temp 36.8 C 11/15/18 06:36 Pulse 118 H 11/15/18 06:37 Resp 18 11/15/18 06:36 BP 121/89 11/15/18 06:37 Pulse Ox 100 11/10/18 13:49 Results & Data Current Inpatient Medications Current Inpatient Medications: Current Inpatient Medications Acetaminophen (Tylenol) 650 mg PO Q4H PRN PRN Reason: Headache or Minor Fever Stop: 12/10/18 14:12 Al Hydrox/Mg Hydrox/Simethicone (Maalox) 30 ml PO Q4H PRN PRN Reason: GI Upset Stop: 12/10/18 14:12 Bismuth Subsalicylate (Kaopectate) 15 ml PO PRN PRN PRN Reason: Loose Stool Stop: 12/10/18 14:12 Hydroxyzine HCl (Vistaril) 50 mg PO HSZ PRN PRN Reason: Insomnia Stop: 12/10/18 14:12 Last Admin: 11/12/18 23:09 Dose: 50 mg Documented by: Hydroxyzine HCl (Vistaril) 25 mg PO Q4H PRN PRN Reason: Anxiety Stop: 12/10/18 14:12 Lorazepam (Ativan) 0.5 mg PO TID PRN PRN Reason: Anxiety Stop: 12/10/18 14:13 Last Admin: 11/14/18 07:15 Dose: 0.5 mg Documented by: Magnesium Hydroxide (Milk Of Magnesia) 30 ml PO DAILY PRN PRN Reason: Heartburn Stop: 12/10/18 14:12 Polyethylene Glycol (Miralax Powder Packet) 17 gm PO DAILY OJ Stop: 12/11/18 08:59 Last Admin: 11/15/18 07:55 Dose: 17 gm Documented by: Sodium Chloride ([place] Nasal) 1 - 2 sprays NA PRN PRN PRN Reason: Nasal Dryness/Congestion Stop: 12/10/18 14:12 Venlafaxine HCl (Effexor Extended Release) 75 mg PO QAM OJ Stop: 12/12/18 08:59 Last Admin: 11/15/18 07:55 Dose: 75 mg Documented by: Venlafaxine HCl (Effexor Extended Release) 37.5 mg PO QAM OJ Stop: 12/13/18 11:59 Last Admin: 11/15/18 07:55 Dose: 37.5 mg Documented by: Post Discharge Appointments Primary Care Physician Name Of Family Doctor: Dr. Rachel Casey - [facility] Time of Appointment with PCP: follow up as needed. Provider Appointment Comment: [address], [place] [address] Psychiatrist Name of Psychiatrist: Dr. Holguin [facility] Psychiatrist's Date of Appointment with Psychiatrist: 11/25/18 Time of Appointment with Psychiatrist: 10:40am Psychiatric Appointment Comment: [address], [place] [address] Therapist Name of Therapist: Qiana Kaufman, PHD - [facility] Therapist's Date of Therapist Appointment: 11/20/18 Time of Therapist Appointment: 3pm Therapy Appointment Comment: [address], [place] [address] Entry Level Electrician Name of Entry Level Electrician: Ary DALE Phone Number for Entry Level Electrician: [phone] Date of Appointment with Entry Level Electrician: 11/20/18 Time of Appointment with Entry Level Electrician: 10am Case Management Appointment Comment: she will come to your home. Contact Information Discharge Discharge Address: [address] [place] [address] [place] [address] CPT Code CPT Code 13104
[2018-11-15] MEDS ORDERED: VENLAFAXINE HCL XR 37.5 MG CAPXR PO ONE (10:42)
[2018-11-15] MEDS: ARIPiprazole 5 MG TAB PO SCH (12:06)
[2018-11-16] MEDS: ARIPiprazole 5 MG TAB PO SCH (08:44)
[2018-11-16] MEDS: VENLAFAXINE HCL XR 150 MG CAPXR PO SCH (08:44)
[2018-11-16] MEDS: POLYETHYLENE (MIRALAX) 17 GM PACK PO SCH (08:45)
--- NOTE | 2018-11-16 15:28 | Psychiatric Progress Note ---
Date of Service November 16, 2018 Impression / Recommendations Impression Remains severely depressed and anxious, with difficulty focusing, although suicidality is improving. Venlafaxine XR has been titrated to 112.5 mg daily, but she is reluctant to titrate further or discuss additional medications. Although thoughts not clearly psychotic, they are distorted, and disorgnization is to point that a psychotic depression is likely. pt became willing to try abilify after being opposed to trying antipsychotic medication and was started 11/15 (abilify at 5mg) Inpatient treatment remains medically necessary due to the severity of her symptoms, and ability to function and provide for her own basic needs as well as those of her children, and risk of rapid decompensation with harm to herself if discharged prematurely. (1) Depression: 11/11 - Retrial Effexor XR 37.5 mg today increasing to 75 mg tomorrow - Obtain OP records and coordinate with current providers - Family meeting with - Encourage participation in group and individual counseling - Q 15 min checks for safety - Safety planning - Assist the patient to explore healthy coping strategies 11/12 - Effexor to 75 mg today - Consider adding antipsychotic if distorted thoughts progress - Family meeting 11/13 - Anxiety and depression continue and are impairing, recommend increasing venlafaxine XR to 112.5mg daily, which patient was initially reluctant to agree to d/t fear of it making her tired or paranoid, but agreed to after discussion. We will monitor closely for side effects here, and advised her we can reduce the dose if she experiences intolerable side effects. - Family meeting with , mother, and lining caser tomorrow. Encouraged her to start working on her discharge plan, specifically identifying what her supports could help her with. - Continue group attendance and participation, work on healthy coping skills and discharge safety plan. - Coordinate care with outpatient psychiatrist, Dr. Holguin. 11/14 -Family meeting held with mother and ; working on discharge plan to include increased family support for childcare. -Only mild improvement with respect to depressive and anxiety symptoms, but SI is improving. Have encouraged more rapid titration of venlafaxine XR, which she is resistant to. Consider dose increase to 150 mg daily tomorrow, as she is tolerating it well but remains symptomatic. 11/15 -The patient's condition has clearly deteriorated over the past 24 hours. She comes in and out of what appears to be something close to catatonia. In a group this morning she spontaneously apologized to everybody else in the group for "the bad things I have done" and for "being so rude to everybody." She was unable to accept feedback from the group which contradicted those assertions. In assessing her mental status today, the patient reference delusional believes, consistent with psychotic depression. Specifically, she told me that she wanted me [facility] because she is claiming disability and "ought to be working." -I advised the patient that I was recommending that we increase her dose of venlafaxine extended release from 112.5 mg daily to 150 mg daily. Also, clearly the patient is psychotic, and after some discussion the patient did agree to accept aripiprazole. We will start at 5 mg daily and increase as tolerated. 11/16 -explored option of raising Abilify dose but given fears of s/e in dose raise will maintain at 5mg po qday for now, Effexor xr maintained at 150mg qday preparing pt for possible d/c Friday 11/17 but pt symptoms and impact on her thought process and related ambivalences being shown might impact this d/c date fasting labs ordered for 11/17 am (2) Anxiety: 11/11 - Effexor XR as above - Assist the patient to explore mindfulness, grounding exercise 11/12 - As above 11/13 -Increase venlafaxine XR as above. She will likely need a higher dose to address her anxiety. Continue hydroxyzine and lorazepam as needed for severe anxiety- 11/15 -Venlafaxine XR increased today to 150 mg daily. -Aripiprazole added. The patient will be given a test dose this morning and will be given a standing dose of 5 mg daily, with plan to titrate as indicated. Material risks and anticipated benefits of aripiprazole were reviewed with the patient, but it is not entirely clear that she was able to understand and this may need once she has cleared. It is hoped that the additional dose of aripiprazole will serve as an adjunct to venlafaxine and, within that context, may help with her clear anxiety. 11/16 as above (3) ADHD (attention deficit hyperactivity disorder): 11/11 - Patient with symptoms of impaired focus/concentration, distractibility - Declines ADHD meds at this time but willing to consider Strattera in the future 11/15 -It is understood that the patient carries a known diagnosis of attention deficit hyperactivity disorder. However, her current psychotic depression is such that it is hard to distinguish what is difficulty concentrating associated with perceptual disturbances and gross confusion, and what is possibly related to an underlying primary attention deficit problem. Inventory Assets Strengths: Love of children and Needs: To remain in psychiatric treatment and complying with treatment recommendations Risk Factors Assessment Male: No : Yes Do You Have Access To A Gun?: No Health Problems: No Mental Health Diagnoses: Yes Substance Use Disorders: No Previous Attempt: Yes Family History of Suicide: No Previous Psychiatric Hospitalization: Yes Smoker: No Protective Factors Assessment : Yes Responsible for Young Children: Yes Employed: Yes ([id number] Mom of two small children (2yrs & 10mo)) Stable Relationships: Yes Supportive Family: Yes Good Rapport with Provider: Yes Interval History Identifying Information ALYSA TORRES is a 38-year-old F who was admitted voluntarily on 11/10/18 for anxiety, depression and suicidal thinking and disorganized thinking and paranoid thinking Chief Complaint "anxious, wondering how long I need to be here ". Review of Systems Sleep Information Total Hours of Sleep: 7 Sleep Comments: pt on q-15 minute checks Meal Information Percent Meal Consumed - Breakfast: 75 Percent Meal Consumed - Lunch: 80 Percent Meal Consumed - Dinner: 100 Subjective Subjective Patient was seen & assessed and interval progress reviewed with nursing and social work. I am a covering psychiatrist for this weekend and happen to be pt's outpt psychiatrist. Pt reports lack of s/e to Effexor xr and to start of Abilify. besides possibly being a little tired. She is not as paranoid nor as anxious nor as irritable and seems to be having some mild improvement to her frustration tolerance and to her thought process. She is still struggling in having linear goal directed thoughts and expressing them. She is seeking a clear date for discharge and is finding the lack of knowing this adding to her distress. She is weary of raising abilify over possible s/e and prefers to stay at 5mg a day for now. She is quite anxious in affect. Staff noted some overt improvements in her affect and in her ability to handle interactions and some improvement o to her organization of her thoughts and her speech this morning. She is without SI or HI. Family and her have made plans for limited time in which she is alone with her children for while she is newly discharged to help minimize her from feeling overwhelmed. Her children visited last night and the visit went fine overall. pt seems to be still struggling with her ambivalence and disorganized thinking though, It also seems that she is going back and forth about staying mother for a bit after discharge. Pt seeking concrete answers that provide structure. sometimes having trouble processing information. today she denied AH or VH . appetite is varying per the day per pt. denied akathisia or eps. Physical Exam Psychiatric Orientation: alert, oriented x 3 and + guarded Apperance: appropriately dressed, appropriately groomed and appeared stated age Eye Contact: + fair eye contact and + poor eye contact Motor Behavior: steady gait and station and + psychomotor agitation Speech: normal rate/rhythm/volume of speech hesistet anxious tone and speech pattern, mild thought blocking at one point Affect: + depressed affect, + anxious affect, + constricted affect and mood congruent with affect Mood: + depressed mood and + anxious mood Thought Process: + perseveration and + concrete thought process; + thought process not clear or coherent Thought Content: + cognitive distortions, + worthlessness and + self deprecation reduction of paranoid thinking but likely not resolved Suicidal Thoughts: denies suicidal thoughts Homicidal Thoughts: denies homicidal thoughts Hallucinations: no auditory hallucinations ([facility] pt gave inconstient renspponses to this question yesterday ) and no visual hallucinations Cognition: recent memory grossly intact, remote memory grossly intact, attention grossly intact and language grossly intact Estimated Intelligence: average estimated intelligence and consistent with education level Insight: + poor insight Judgement: + impaired judgement Vital Signs (Past 24 Hours) Last Vital Signs Temp 36.8 C 11/16/18 06:52 Pulse 96 H 11/16/18 06:54 Resp 18 11/16/18 06:52 BP 110/76 11/16/18 06:54 Pulse Ox 100 11/10/18 13:49 Results & Data Current Inpatient Medications Current Inpatient Medications: Current Inpatient Medications Acetaminophen (Tylenol) 650 mg PO Q4H PRN PRN Reason: Headache or Minor Fever Stop: 12/10/18 14:12 Al Hydrox/Mg Hydrox/Simethicone (Maalox) 30 ml PO Q4H PRN PRN Reason: GI Upset Stop: 12/10/18 14:12 Aripiprazole (Abilify) 5 mg PO QAM OJ Stop: 12/15/18 10:44 Last Admin: 11/16/18 08:44 Dose: 5 mg Documented by: Bismuth Subsalicylate (Kaopectate) 15 ml PO PRN PRN PRN Reason: Loose Stool Stop: 12/10/18 14:12 Hydroxyzine HCl (Vistaril) 50 mg PO HSZ PRN PRN Reason: Insomnia Stop: 12/10/18 14:12 Last Admin: 11/12/18 23:09 Dose: 50 mg Documented by: Hydroxyzine HCl (Vistaril) 25 mg PO Q4H PRN PRN Reason: Anxiety Stop: 12/10/18 14:12 Lorazepam (Ativan) 0.5 mg PO TID PRN PRN Reason: Anxiety Stop: 12/10/18 14:13 Last Admin: 11/14/18 07:15 Dose: 0.5 mg Documented by: Magnesium Hydroxide (Milk Of Magnesia) 30 ml PO DAILY PRN PRN Reason: Heartburn Stop: 12/10/18 14:12 Polyethylene Glycol (Miralax Powder Packet) 17 gm PO DAILY OJ Stop: 12/11/18 08:59 Last Admin: 11/16/18 08:45 Dose: Not Given Documented by: Sodium Chloride ([place] Nasal) 1 - 2 sprays NA PRN PRN PRN Reason: Nasal Dryness/Congestion Stop: 12/10/18 14:12 Venlafaxine HCl (Effexor Extended Release) 150 mg PO QAM OJ Stop: 12/16/18 08:59 Last Admin: 11/16/18 08:44 Dose: 150 mg Documented by: Post Discharge Appointments Primary Care Physician Name Of Family Doctor: Dr. Rachel Nazario vikash [facility] Time of Appointment with PCP: follow up as needed. Provider Appointment Comment: Amy Mcadams, [place] [id number] Psychiatrist Name of Psychiatrist: Dr. Holguin [facility] Psychiatrist's Date of Appointment with Psychiatrist: 11/25/18 Time of Appointment with Psychiatrist: 10:40am Psychiatric Appointment Comment: [address], [place] [address] Therapist Name of Therapist: Qiana Kaufman, PHD - [facility] Therapist's Date of Therapist Appointment: 11/20/18 Time of Therapist Appointment: 3pm Therapy Appointment Comment: [address], [place] [address] Woodworking Machinist Name of Woodworking Machinist: Ary DALE Phone Number for Woodworking Machinist: [phone] Date of Appointment with Woodworking Machinist: 11/20/18 Time of Appointment with Woodworking Machinist: 10 am Case Management Appointment Comment: she will come to your home. Contact Information Discharge Discharge [address]: [address] [place] [id number] CPT Code CPT Code 76652
[2018-11-17 06:46] VITALS: BP 127/85
[2018-11-17 07:40] LABS: Glucose Fasting 95 mg/dl (70-99)
[2018-11-17 07:45] LABS: Chol HDL Ratio 3; Cholesterol 134 mg/dl (0-200); HDL Cholesterol 50 mg/dl; LDL Cholesterol Calculated 69 mg/dl; Triglycerides 73 mg/dl (0-150); VLDL Cholesterol 15 mg/dl
[2018-11-17 07:50] VITALS: PULSE 83
[2018-11-17] MEDS: VENLAFAXINE HCL XR 150 MG CAPXR PO SCH (08:29)
[2018-11-17] MEDS: ARIPiprazole 5 MG TAB PO SCH (08:29)
[2018-11-17] MEDS: POLYETHYLENE (MIRALAX) 17 GM PACK PO SCH (08:31)
--- NOTE | 2018-11-17 10:56 | Discharge Summary ---
Date of Service November 17, 2018 History of Present Illness Manda is a 38-year-old woman who we know from previous admissions to our unit. She is currently in treatment with Dr. Eleuterio Holguin for ADHD, PTSD, depression and anxiety. She reports that she last saw Dr. Holguin on of last week when she was in crisis. She reports he recommended starting on Ativan and Cymbalta but she has not taken the Cymbalta and only 2 doses of Ativan. She feels that she has been increasingly depressed and anxious, questioning her ability to be a good and mother. She feels that she lacks the appropriate focus and concentration to be able to care for her children and fears that these inabilities will lead to something destructive for she and her children. She describes feeling "all over the place", unable to figure out what she needs or wants out of life. She says that she has "always relied on others" to manage her life and now finds she is struggling to do it for herself. When we last saw this patient several years ago, she had been in a same-sex relationship that she now describes as dysfunctional. She always knew she wanted to , have a and children but now questions whether or not she is able to manage her children who are currently about 1 and 2-1/2 years old. She feels a lot of guilt because she has to ask for her 's help at night when the children get up when he has to get up and go to work in the morning. She feels she is increasingly emotionally labile with times when she gets so upset that she "explodes" meaning that she yells. Yesterday, she felt like she was not able to take care of her children describes her house as "destroyed, and felt that everything was going wrong. She then presented to the emergency department for evaluation. Today she describes herself as "depressed", "not happy". She admits to having suicidal thoughts but denies ever having a plan or intent. She reports that her sleep is been impaired recently feeling overwhelmed at night, hearing noises in addition to the fact that her snores. Her anxiety is high leading her to feel like not eating. She describes periods of panic when she "cannot regulate her emotions". She is not currently being treated for ADHD as she has not wanted to take medications when she was breast-feeding however stopped breast-feeding in the last week or so. She describes herself as easily distracted, misplacing things easily, and cannot focus on anything for a prolonged period. Her anxiety has a large part to do with what other people think of her. She worries that whatever decision she makes as apparent will be judged by others. She is on disability and fears that people will see that, pillow cleaner her and think she should be doing something differently. She admits that her wants for her to figure out what she wants to do with her life and what will make her happy and she is not sure how to do that. She denies that she is having any auditory or visual hallucinations but talks about some paranoid themes, specifically worrying that her is being unfaithful. She denies any eating disordered symptoms. She denies any periods of elevated mood, decreased need for sleep or increase in goal-directed activities that would be congruent with a bipolar disorder. Physical Exam Psychiatric Orientation: alert, oriented x 3, oriented to person, cooperative and + guarded Apperance: appropriately dressed, appropriately groomed, + disheveled and appeared stated age Eye Contact: + fair eye contact and + poor eye contact Motor Behavior: steady gait and station, no abnormal motor movements, + psychomotor agitation and + psychomotor retardation Speech: normal rate/rhythm/volume of speech Affect: + depressed affect, + anxious affect, + flat affect, + constricted affect and mood congruent with affect Mood: + depressed mood and + anxious mood Thought Process: + thought blocking, + perseveration and + concrete thought process; + thought process not linear or logical and + thought process not clear or coherent Thought Content: + cognitive distortions, + delusions (The patient harbors delusions that are consistent with the diagnosis of major depressive disorder, with psychotic features. For example, she tells me that she deserves to go to nursing home because she is claiming disability and "should be working." The patient also makes vague references to "all sorts of strange things" that are going on at home as well as here in the hospital, but she is unable or unwilling to elaborate.), + hopelessness, + worthlessness and + self deprecation Suicidal Thoughts: denies suicidal thoughts, denies suicidal plan and denies suicidal intent Homicidal Thoughts: denies homicidal thoughts Hallucinations: no auditory hallucinations ([facility] pt gave inconstient renspponses to this question yesterday ) and no visual hallucinations Cognition: recent memory grossly intact, remote memory grossly intact, attention grossly intact and language grossly intact Estimated Intelligence: average estimated intelligence, consistent with education level and + below average estimated intelligence Insight: + poor insight and + impaired insight Judgement: + poor judgement and + impaired judgement Vital Signs (Past 24 Hours) Last Vital Signs Temp 36.8 C 11/17/18 07:30 Pulse 83 11/17/18 07:30 Resp 16 11/17/18 07:30 BP 127/85 11/17/18 07:30 Pulse Ox 100 11/17/18 07:30 Principal Diagnosis Major Depressive Disorder, Recurrent, severe with psychotic features Psychiatric Data See section reviewing interventions by problems for details. Overall Venlafaxine ER was started and titrated to 150mg over the hospital course. Additionally, aripiprazole was added at 5mg daily, once pt was willing to start an antipsychotic medication. Family meeting occurred. She is aiming to stay with her mother for some time after discharge to obtain more support. Day of Discharge Assessment Pt is exhibiting notable lessening of her paranoid thinking and more full range of affect that is somewhat brighter and with a notable lessening of emotional tension. She is more able to express her thoughts in a coherent linear and goal directed fashion. She denied AH at first but then admitted that she heard some laughing at times during her hospital course which she thinks was the other patients but she is not certain. She indicated once thinking she saw the food tray but then it was not there. She denied SI or HI. She is sleeping decently. Her appetite is intact. She is hopeful that venlafaxine er and aripiprazole will continue to further alleviate her symptoms and is seeking discharge and aims to stay at her mother's for a bit to obtain more emotional support. Her family has made plans to limit the time will be alone for her children for now to help provide more emotional support as well. She is denying s/e to her medications. Her fasting lipids and glucose labs were wnl. She is not considered an imminent risk to herself or to others and she is considered appropriate to be discharge today. Transition of Care Transition Of Care Record: was reviewed with the patient Advance Directives Advance Directives Information Provided: Yes Advance Directives: No Mental Health Advance Directive: No Advance Directives on File: No Living Will: No Power of Sheet Metal Worker Supervisor: No Advance Directives Reason:: Declines as Mental Health Visit. Risk Factors Assessment Male: No : Yes Do You Have Access To A Gun?: No Health Problems: No Mental Health Diagnoses: Yes Substance Use Disorders: No Previous Attempt: Yes Family History of Suicide: No Previous Psychiatric Hospitalization: Yes Smoker: No Protective Factors Assessment : Yes Responsible for Young Children: Yes Employed: Yes ([id number] Mom of two small children (2yrs & 10mo)) Stable Relationships: Yes Supportive Family: Yes Good Rapport with Provider: Yes Tobacco Cessation at Discharge Tobacco Cessation Medication Prescribed at Discharge: Not Applicable/Non-Smoker Total Time Total Time Spent: Greater Than 30 Minutes Total Time Includes: Examination of the patient, Discharge Planning and Medication Reconciliation Discharge Data Lab Results 11/10/18 11/10/18 11/10/18 09:20 09:20 09:20 WBC RBC Hgb Hct MCV MCH MCHC RDW Std Deviation RDW Coeff of Bernard Plt Count MPV Immature Gran % (Auto) Neut % (Auto) Lymph % (Auto) [place] % (Auto) Eos % (Auto) Baso % (Auto) Immature Gran # (Auto) Neut # (Auto) Lymph # (Auto) [place] # (Auto) Eos # (Auto) Baso # (Auto) Sodium Potassium Chloride Carbon Dioxide Anion Gap BUN Creatinine Est Cr Clr Drug Dosing Est GFR ( Amer) Est GFR (Non-Af Amer) BUN/Creatinine Ratio Glucose Fasting Glucose Calcium Total Bilirubin AST ALT Alkaline Phosphatase Total Protein Albumin Globulin Albumin/Globulin Ratio Triglycerides Cholesterol LDL Cholesterol, Calc VLDL Cholesterol, Calc HDL Cholesterol Cholesterol/HDL Ratio TSH Urine Color Yellow Urine Appearance Clear Urine pH 7.5 Ur Specific [place] 1.010 Urine Protein Negative Urine Glucose (UA) Negative Urine Ketones Negative Urine Blood Negative Urine Nitrite Negative Urine Bilirubin Negative Urine Urobilinogen Negative Ur Leukocyte Esterase Negative POC Ur Test NEG Nasal Screen MRSA (PCR) Salicylates Urine Opiates Screen Neg Ur Methadone, Qual Neg Acetaminophen Urine Barbiturates Neg Ur Phencyclidine (PCP) Neg U Amphetamin/Meth Scrn Neg MDMA (Ecstasy) Screen Neg U Benzodiazepines Scrn Neg Ur Cocaine Metabolite Neg U Marijuana (THC) Screen Neg Ethyl Alcohol mg/dL 11/10/18 11/10/18 11/10/18 09:49 09:49 09:49 WBC 8.07 RBC 4.90 Hgb 12.5 Hct 38.7 MCV 79.0 L MCH 25.5 MCHC 32.3 RDW Std Deviation 45.6 RDW Coeff of Bernard 15.7 H Plt Count 383 MPV 9.3 Immature Gran % (Auto) 0.2 Neut % (Auto) 73.3 Lymph % (Auto) 20.0 [place] % (Auto) 5.8 Eos % (Auto) 0.5 Baso % (Auto) 0.2 Immature Gran # (Auto) 0.02 Neut # (Auto) 5.91 Lymph # (Auto) 1.61 [place] # (Auto) 0.47 Eos # (Auto) 0.04 Baso # (Auto) 0.02 Sodium 138 Potassium 3.8 Chloride 105 Carbon Dioxide 27 Anion Gap 6.0 BUN 8 Creatinine 0.76 Est Cr Clr Drug Dosing 87.5 Est GFR ( Amer) 116.1 Est GFR (Non-Af Amer) 100.2 BUN/Creatinine Ratio 11.1 Glucose 100 H Fasting Glucose Calcium 9.1 Total Bilirubin 0.7 AST 12 L ALT 16 Alkaline Phosphatase 85 Total Protein 7.7 Albumin 4.3 Globulin 3.4 Albumin/Globulin Ratio 1.3 Triglycerides Cholesterol LDL Cholesterol, Calc VLDL Cholesterol, Calc HDL Cholesterol Cholesterol/HDL Ratio TSH 1.250 Urine Color Urine Appearance Urine pH Ur Specific [place] Urine Protein Urine Glucose (UA) Urine Ketones Urine Blood Urine Nitrite Urine Bilirubin Urine Urobilinogen Ur Leukocyte Esterase POC Ur Test Nasal Screen MRSA (PCR) Salicylates < 1.7 L Urine Opiates Screen Ur Methadone, Qual Acetaminophen < 2 L Urine Barbiturates Ur Phencyclidine (PCP) U Amphetamin/Meth Scrn MDMA (Ecstasy) Screen U Benzodiazepines Scrn Ur Cocaine Metabolite U Marijuana (THC) Screen Ethyl Alcohol mg/dL 11/10/18 11/10/18 11/17/18 09:49 10:39 06:59 WBC RBC Hgb Hct MCV MCH MCHC RDW Std Deviation RDW Coeff of Bernard Plt Count MPV Immature Gran % (Auto) Neut % (Auto) Lymph % (Auto) [place] % (Auto) Eos % (Auto) Baso % (Auto) Immature Gran # (Auto) Neut # (Auto) Lymph # (Auto) [place] # (Auto) Eos # (Auto) Baso # (Auto) Sodium Potassium Chloride Carbon Dioxide Anion Gap BUN Creatinine Est Cr Clr Drug Dosing Est GFR ( Amer) Est GFR (Non-Af Amer) BUN/Creatinine Ratio Glucose Fasting Glucose 95 Calcium Total Bilirubin AST ALT Alkaline Phosphatase Total Protein Albumin Globulin Albumin/Globulin Ratio Triglycerides 73 Cholesterol 134 LDL Cholesterol, Calc 69 VLDL Cholesterol, Calc 15 HDL Cholesterol 50 Cholesterol/HDL Ratio 3 TSH Urine Color Urine Appearance Urine pH Ur Specific [place] Urine Protein Urine Glucose (UA) Urine Ketones Urine Blood Urine Nitrite Urine Bilirubin Urine Urobilinogen Ur Leukocyte Esterase POC Ur Test Nasal Screen MRSA (PCR) Positive A Salicylates Urine Opiates Screen Ur Methadone, Qual Acetaminophen Urine Barbiturates Ur Phencyclidine (PCP) U Amphetamin/Meth Scrn MDMA (Ecstasy) Screen U Benzodiazepines Scrn Ur Cocaine Metabolite U Marijuana (THC) Screen Ethyl Alcohol mg/dL < 3.0 Hospital Course (1) Depression: 11/11 - Retrial Effexor XR 37.5 mg today increasing to 75 mg tomorrow - Obtain OP records and coordinate with current providers - Family meeting with - Encourage participation in group and individual counseling - Q 15 min checks for safety - Safety planning - Assist the patient to explore healthy coping strategies 11/12 - Effexor to 75 mg today - Consider adding antipsychotic if distorted thoughts progress - Family meeting 11/13 - Anxiety and depression continue and are impairing, recommend increasing venlafaxine XR to 112.5mg daily, which patient was initially reluctant to agree to d/t fear of it making her tired or paranoid, but agreed to after discussion. We will monitor closely for side effects here, and advised her we can reduce the dose if she experiences intolerable side effects. - Family meeting with , mother, and human services case manager tomorrow. Encouraged her to start working on her discharge plan, specifically identifying what her supports could help her with. - Continue group attendance and participation, work on healthy coping skills and discharge safety plan. - Coordinate care with outpatient psychiatrist, Dr. Holguin. 11/14 -Family meeting held with mother and ; working on discharge plan to include increased family support for childcare. -Only mild improvement with respect to depressive and anxiety symptoms, but SI is improving. Have encouraged more rapid titration of venlafaxine XR, which she is resistant to. Consider dose increase to 150 mg daily tomorrow, as she is tolerating it well but remains symptomatic. 11/15 -The patient's condition has clearly deteriorated over the past 24 hours. She comes in and out of what appears to be something close to catatonia. In a group this morning she spontaneously apologized to everybody else in the group for "the bad things I have done" and for "being so rude to everybody." She was unable to accept feedback from the group which contradicted those assertions. In assessing her mental status today, the patient reference delusional believes, consistent with psychotic depression. Specifically, she told me that she wanted me to send her to nursing home because she is claiming disability and "ought to be working." -I advised the patient that I was recommending that we increase her dose of venlafaxine extended release from 112.5 mg daily to 150 mg daily. Also, clearly the patient is psychotic, and after some discussion the patient did agree to accept aripiprazole. We will start at 5 mg daily and increase as tolerated. 11/16 -explored option of raising Abilify dose but given fears of s/e in dose raise will maintain at 5mg po qday for now, Effexor xr maintained at 150mg qday preparing pt for possible d/c Friday 11/17 but pt symptoms and impact on her thought process and related ambivalences being shown might impact this d/c date fasting labs ordered for 11/17 am 11/17 - fasting labs for lipids and glucose wnl, pt tolerating Venlafaxine er at 150m a day and aripiprazole at 5mg a day to date and seeming to have some early positive responses to the medications. She is weary about raising aripiprazole further at this time and will explore further dose adjustments in her outpt psychiatric appointments. pt aims ot stay with mother for first days after discharge to obtain more support (2) Anxiety: 11/11 - Effexor XR as above - Assist the patient to explore mindfulness, grounding exercise 11/12 - As above 11/13 -Increase venlafaxine XR as above. She will likely need a higher dose to address her anxiety. Continue hydroxyzine and lorazepam as needed for severe anxiety- 11/15 -Venlafaxine XR increased today to 150 mg daily. -Aripiprazole added. The patient will be given a test dose this morning and will be given a standing dose of 5 mg daily, with plan to titrate as indicated. Material risks and anticipated benefits of aripiprazole were reviewed with the patient, but it is not entirely clear that she was able to understand and this may need once she has cleared. It is hoped that the additional dose of aripiprazole will serve as an adjunct to venlafaxine and, within that context, may help with her clear anxiety. 11/16 as above 11/17 meds maintained same, pt aims to stay with mother for first days after discharge to obtain more emotional support (3) ADHD (attention deficit hyperactivity disorder): 11/11 - Patient with symptoms of impaired focus/concentration, distractibility - Declines ADHD meds at this time but willing to consider Strattera in the future 11/15 -It is understood that the patient carries a known diagnosis of attention deficit hyperactivity disorder. However, her current psychotic depression is such that it is hard to distinguish what is difficulty concentrating associated with perceptual disturbances and gross confusion, and what is possibly related to an underlying primary attention deficit problem. Post Discharge Appointments Primary Care Physician Name Of Family Doctor: Dr. Rachel Casey [facility] Primary [facility] Time of Appointment with PCP: follow up as needed. Provider Appointment Comment: [address], [place] [id number] Primary Care Release of Information: Obtained, Reviewed and Signed Psychiatrist Name of Psychiatrist: Dr. Holguin - [facility] Psychiatrist's Date of Appointment with Psychiatrist: 11/25/18 Time of Appointment with Psychiatrist: 10:40am Psychiatric Appointment Comment: [address], [place] [address] Psychiatrist Release of Information: Obtained, Reviewed and Signed Therapist Name of Therapist: Qiana Kaufman, PHD - [facility] Therapist's Date of Therapist Appointment: 11/20/18 Time of Therapist Appointment: 3pm Therapy Appointment Comment: [address], [place] [address] Therapist Release of Information: Obtained, Reviewed and Signed Data Reporting Analyst Name of Data Reporting Analyst: Ary DALE Phone Number for Data Reporting Analyst: [phone] Date of Appointment with Data Reporting Analyst: 11/20/18 Time of Appointment with Data Reporting Analyst: 10 am Case Management Appointment Comment: she will come to your home. Data Reporting Analyst Release of Information: Obtained, Reviewed and Signed Home Health Services Home Health Services:: None Smoking Cessation Counseling Tobacco Cessation Medication Prescribed at Discharge: Not Applicable/Non-Smoker Contact Information Discharge Discharge Address: [address] [place] [id number] Discharge Plan Discharge Items Patient Disposition: Home - Self-Care Reason For Visit: MAJOR DEPRESSION RECURRENT Discharge Diagnosis: Major Depression Recurrent, severe with psychotic features Condition: Fair Discharge Goals: Improve function Activity: Resume your previous activity Non-emergency contact: Psychiatrist and Therapist Call non-emergency contact if: you have any medication questions Follow-up/Referrals: Rachel Casey MD [Primary Care Provider] - Diet: Regular Addtl Provider Instructions: SPECIAL CARE INSTRUCTIONS: 1. Follow through with your scheduled aftercare appointments. If unable to keep an appointment, please call to reschedule. 2. Take your medication only as prescribed. Medication should not be changed or stopped without the approval of your doctor. In the event of worsening symptoms or concerns about side effects, contact your doctor immediately. 3. Utilize new healthy coping skills, anger management skills, and stress management skills learned during your hospitalization. Journal feelings and process them with a support person. Identify stressors or situations that may result in relapse, deterioration or inappropriate behaviors and develop a plan to deal with those issues. 4. If your coping skills are ineffective and you are in crisis, contact your outpatient providers for direction. If unable to reach your providers, please call the CAN HELP LINE AT or go to the closest Emergency Room. 5. Avoid alcohol and un-prescribed drugs. 6. You have been provided with the Mental Health Advance Directives Pamphlet for your review. AFTERCARE APPOINTMENTS: * Please call your insurance company prior to your scheduled appointment to confirm your aftercare providers are covered. Take your insurance information to your appointments. WHO TO CALL AND WHEN: Medical Emergencies: For questions or emergencies related to your hospital stay, please contact the Inpatient Behavioral Health Unit at [phone]. A triage clinician is on-call 19/02 for the Behavioral Health Unit for emergencies At any time you feel your situation is an emergency, you may also call 911 immediately. Your Doctors Instructions noted above were prepared by provider Eleuterio Holguin MD. Prescriptions: New venlafaxine 150 mg Capsule,Extended Release 24hr 150 mg PO QAM Qty: 30 RF: 0 aripiprazole [Abilify] 5 mg Tablet 5 mg PO QAM Qty: 30 RF: 0 Continued polyethylene glycol 3350 [Miralax] 17 gram Powder In Packet 17 g PO DAILY RF: 0 Discontinued lorazepam 0.5 mg Tablet 0.5 mg PO TID PRN (Reason: Anxiety) RF: 0 Stand-Alone Forms: [facility] Discharge Orders: Discharge Order (Routine); Ordered 11/17/18 Ordered By: Eleuterio Holguin Admission Data Admit Date/Time: 11/10/18 13:20 Attending Provider: Mary De Guzman Admit Provider: Darío Lopez Primary Care Provider: Rachel Casey Service: Psychiatry Other Interventions: Discharge Summary Assessment (RN) Last Done: 11/17/18 07:30 PSY Interdisciplinary Discharge Planning Last Done: 11/17/18 10:29 Pending Studies at Discharge: No
== END 2018-11-17 11:35 | disposition home or self-care (01) | DRG 885 ==
LOC: ED 08:55 → 3S 13:20

== ENCOUNTER 2022-12-07 14:45 | Inpatient (IN) ==
[2022-12-07] MEDS ORDERED: SODIUM CHLORIDE 0.9% 1000ML 1,000 ML IV SCH (15:00)
--- NOTE | 2022-12-07 15:03 | Emergency Department Note ---
Impression & Plan Overdose, Anxiety, Depression with suicidal ideation ED Provider Note NAME: ALYSA TORRES AGE: 42 SEX: F : 1980 ARRIVES VIA: Ambulance INFORMANT: Patient, police ED PROVIDER(S): Zackary Peralta DO CHIEF COMPLAINT: Mental health evaluation HPI: The patient is a 42-year-old female who presented to the emergency department for an evaluation of mental health issues. The patient has been having problems with anxiety. She states that she had problems recently with her in-laws. Then today she had an issue with the check that was written for her child's daycare. They thought the check was not coming through and the patient was very anxious and angered by this. She admits that she took an overdose of her Latuda 80 mg. She states that at 2 PM she took 27 tablets. The police went to the house. The patient did text her significant other. The call to the police was made at 2:13 PM. The police were on scene at 2:22 PM. The patient has been with the police ever since. She states that she has been taking this medication for quite some time but the bottle in question was old. It was 30 tablets total but she thinks that she took 3 tablets out of this previous bottle. Currently there are 7 pills left. So the patient states that she took 20 tablets all at 1 time. She denies having any vomiting. She denies having any chest pain. ROS: See above HPI for pertinent positives & negatives. A total of 10 systems reviewed and were otherwise negative. PAST MEDICAL HISTORY: See Below PAST SURGICAL HISTORY: See Below FAMILY HISTORY: See Below SOCIAL HISTORY: See Below HOME MEDICATIONS: See Below ALLERGIES: See Below VITALS: See Below PHYSICAL EXAMINATION: GENERAL: The patient is awake and alert. She is mildly anxious appearing. EYES: The conjunctivae are clear. The pupils are round and reactive. EARS, NOSE, MOUTH AND THROAT: The nose is without any evidence of any deformity. NECK: The neck is nontender and supple. RESPIRATORY: Normal respiratory effort is noted there is no evidence of wheezing rhonchi or rales CARDIOVASCULAR: Tachycardic and regular heart sounds were noted to auscultation. There is no definite murmur. GASTROINTESTINAL: The abdomen is soft. Abdomen is nontender. MUSCULOSKELETAL/EXTREMITIES: There is no evidence of gross deformity full range of motion is noted in the hips and shoulders. SKIN: There is no obvious evidence of any rash. There are no petechiae, pallor or cyanosis noted. NEUROLOGIC: Patient is awake alert and oriented x3 strength is symmetric patellar reflexes are 2+ bilaterally PSYCH: The patient makes good eye contact mostly evaluation. She does admit to having suicidal ideation admits that she took her medications in an attempt to hurt herself. MEDICAL DECISION MAKING: The patient is a 42-year-old female who presented to the emergency department for an evaluation of anxiety depression and suicidal ideation with gesture. The patient took an overdose of some of her prescription medication. The patient was reevaluated multiple times. Laboratory studies were obtained. The patient was observed in the emergency department for a period of 8 hours after the ingestion. I discussed the patient's condition with poison control. They felt that she could be medically cleared after that observation time. The patient was resting comfortably. She was tachycardic and Poison control recommended treating this with benzodiazepines. Ativan was ordered. Fluids were ordered. Currently the patient is here as a 302 petition. She was evaluated by the mental health briefcase sewer. She was felt to be a good candidate for 201 admission. Therefore at this time I will medically clear the patient and denied the 302 petition. The patient was signed out to Dr. Corea at change of shift. Please see his note for continuation of care and further disposition. Triage Nursing notes reviewed. Prior medical records reviewed Vital Signs: reviewed and remarkable for tachycardia. Differential diagnosis: Mood disorder, infection, hypoglycemia, electrolyte abnormalities, cardiac sources, intracerebral event, toxicologic, trauma, neurologic, as well as other pathologies. ER treatment provided: See below Diagnostics interpreted by me: ECG: EKG was obtained in the emergency department. My interpretation is sinus tachycardia at 119 bpm. There is no ectopy. There was no acute ST segment abnormalities noted. QTc was 447 ms. QRS duration is 76 ms. This was compared to a tracing from November 08, 2015. There is an increase in the rate otherwise no changes were noted. Cardiac Monitoring: An order was placed for continuous cardiac monitoring. The monitor shows a rate of 104 bpm with sinus tachycardia. Laboratory studies: As stated above and show below. Imaging studies: See below. Consultation(s): I discussed this case with the Poison Control Center at 4:32 PM. They recommend observing the patient for 8 hours after the ingestion. If the patient is awake alert with acceptable vital signs she can be medically cleared at that time. Past Med/Surg History Medical History ADHD (attention deficit hyperactivity disorder) Anxiety Codeine overdose Depression Eating disorder OCD (obsessive compulsive disorder) Overdose of nonsteroidal anti-inflammatory drug (NSAID) Tylenol overdose Surgical History No history of previous surgery Family History Other No significant family history Social History Smoking Status: Never smoker Preferred Language: Dominican Communication Ability: Effective Beliefs That Will Affect Care: None marital status: Single Current Living Situation: Family current occupational status: employed Feels Safe at Home: Yes Assistive Devices: Glasses Allergies Allergies Allergy/AdvReac Type Severity Reaction Status Date / Time oxycodone Allergy Intermediate RASH Verified 12/07/22 15:51 codeine Allergy Mild HIVES Verified 12/07/22 15:51 benztropine Allergy Unknown itchy rash Verified 12/07/22 15:51 carbamazepine Allergy Unknown Unknown Verified 12/07/22 15:51 fluoxetine Allergy Unknown UNSURE Verified 12/07/22 15:51 Home Meds Home Medications Medication Instructions Recorded Confirmed atomoxetine 80 mg capsule 80 mg PO DAILY 12/07/22 12/07/22 dextroamphetamine-amphetamine ER 25 mg PO DAILY 12/07/22 12/07/22 25 mg capsule,3 bead,ext release 24hr (Mydayis) lorazepam 2 mg capsule,extended 2 mg PO DAILY 12/07/22 12/07/22 release 24 hr (Loreev XR) lurasidone 120 mg tablet (Latuda) 120 mg PO DAILY 12/07/22 12/07/22 venlafaxine 225 mg tablet,extended 225 mg PO DAILY 12/07/22 12/07/22 release 24 hr Results & Data (ED) Vital Signs Vital Signs - 24 hr 12/07/22 15:04 12/07/22 15:17 12/07/22 15:46 Temperature 36.8 C Temperature Source Oral Pulse Rate 116 H 126 H Pulse Rate [Apical] 118 H Pulse Rate from SpO2 Sensor Pulse Rhythm Regular Pulse Rhythm [Apical] Pulse Strength Normal Pulse Strength [Apical] Respiratory Rate 18 20 Respiratory Effort / Characteristics Non-Labored Spontaneous Non-Labored Spontaneous Respiratory Depth Normal Normal Respiratory Pattern Regular Regular Blood Pressure 109/81 Blood Pressure [Left Arm] 138/77 Blood Pressure Mean 90 Blood Pressure Mean [Left Arm] 97 Blood Pressure Position Sitting Pulse Oximetry 96 98 Oxygen Delivery Method Room Air Room Air Sepsis Recent Fever Within 48 Hours No Sepsis New/Unexplained Change in Mental Status No Sepsis Action Taken by Nursing No Action Required 12/07/22 17:00 12/07/22 18:16 12/07/22 18:34 Temperature Temperature Source Pulse Rate Pulse Rate [Apical] 115 H 114 H 114 H Pulse Rate from SpO2 Sensor Pulse Rhythm Pulse Rhythm [Apical] Pulse Strength Pulse Strength [Apical] Respiratory Rate 20 18 20 Respiratory Effort / Characteristics Non-Labored Spontaneous Non-Labored Spontaneous Non-Labored Spontaneous Respiratory Depth Normal Normal Normal Respiratory Pattern Regular Regular Regular Blood Pressure Blood Pressure [Left Arm] 135/84 123/81 138/73 Blood Pressure Mean Blood Pressure Mean [Left Arm] 101 95 94 Blood Pressure Position Pulse Oximetry 99 100 100 Oxygen Delivery Method Room Air Room Air Room Air Sepsis Recent Fever Within 48 Hours Sepsis New/Unexplained Change in Mental Status Sepsis Action Taken by Nursing 12/07/22 18:45 12/07/22 19:00 12/07/22 19:00 Temperature Temperature Source Pulse Rate 114 H Pulse Rate [Apical] 110 H Pulse Rate from SpO2 Sensor 116 H Pulse Rhythm Pulse Rhythm [Apical] Pulse Strength Pulse Strength [Apical] Respiratory Rate 20 16 Respiratory Effort / Characteristics Non-Labored Spontaneous Respiratory Depth Normal Respiratory Pattern Regular Blood Pressure 112/70 Blood Pressure [Left Arm] 138/73 Blood Pressure Mean 84 Blood Pressure Mean [Left Arm] 94 Blood Pressure Position Pulse Oximetry 99 100 Oxygen Delivery Method Room Air Room Air Sepsis Recent Fever Within 48 Hours Sepsis New/Unexplained Change in Mental Status Sepsis Action Taken by Nursing 12/07/22 19:35 12/07/22 20:00 12/07/22 19:30 Temperature Temperature Source Pulse Rate 109 H Pulse Rate [Apical] Pulse Rate from SpO2 Sensor Pulse Rhythm Pulse Rhythm [Apical] Pulse Strength Pulse Strength [Apical] Respiratory Rate Respiratory Effort / Characteristics Non-Labored Respiratory Depth Normal Respiratory Pattern Blood Pressure 131/84 Blood Pressure [Left Arm] Blood Pressure Mean 99 Blood Pressure Mean [Left Arm] Blood Pressure Position Pulse Oximetry Oxygen Delivery Method Sepsis Recent Fever Within 48 Hours Sepsis New/Unexplained Change in Mental Status Sepsis Action Taken by Nursing 12/07/22 19:30 12/07/22 20:00 12/07/22 20:00 Temperature Temperature Source Pulse Rate 112 H 105 H Pulse Rate [Apical] Pulse Rate from SpO2 Sensor 112 H 106 H Pulse Rhythm Pulse Rhythm [Apical] Pulse Strength Pulse Strength [Apical] Respiratory Rate 22 19 Respiratory Effort / Characteristics Respiratory Depth Respiratory Pattern Blood Pressure 110/72 Blood Pressure [Left Arm] Blood Pressure Mean 84 Blood Pressure Mean [Left Arm] Blood Pressure Position Pulse Oximetry 100 99 Oxygen Delivery Method Sepsis Recent Fever Within 48 Hours Sepsis New/Unexplained Change in Mental Status Sepsis Action Taken by Nursing 12/07/22 20:30 12/07/22 20:30 12/07/22 22:00 Temperature Temperature Source Pulse Rate 114 H Pulse Rate [Apical] 97 H Pulse Rate from SpO2 Sensor 114 H Pulse Rhythm Pulse Rhythm [Apical] Regular Pulse Strength Pulse Strength [Apical] Normal Respiratory Rate 23 18 Respiratory Effort / Characteristics Non-Labored Respiratory Depth Normal Respiratory Pattern Regular Blood Pressure 139/82 Blood Pressure [Left Arm] 134/94 Blood Pressure Mean 101 Blood Pressure Mean [Left Arm] 107 Blood Pressure Position Pulse Oximetry 99 97 Oxygen Delivery Method Room Air Room Air Sepsis Recent Fever Within 48 Hours Sepsis New/Unexplained Change in Mental Status Sepsis Action Taken by Assisted Medications Current Medication List: was personally reviewed by me Laboratory Data Attestation: I reviewed the patient's lab results. 12/07/22 15:02 12/07/22 15:02 Lab Results 12/07/22 12/07/22 12/07/22 Range/Units 14:52 14:52 14:57 WBC (4.8-10.8) K/ul RBC (4.20-5.40) M/uL Hgb (12.0-16.0) g/dl Hct (37.0-47.0) % MCV (80.0-100.0) fL MCH (25.0-34.0) pg MCHC (32.0-36.0) g/dL RDW Std Deviation (36.4-46.3) fL RDW Coeff of Bernard (11.5-14.5) % Plt Count (130-400) K/uL MPV (9.4-12.4) fL Immature Gran % (Auto) % Neut % (Auto) % Lymph % (Auto) % [place] % (Auto) % Eos % (Auto) % Baso % (Auto) % Neut # (Auto) (1.40-6.50) K/uL Lymph # (Auto) (1.2-3.4) K/uL [place] # (Auto) (0.11-0.59) K/uL Eos # (Auto) (0-0.50) K/uL Baso # (Auto) (0-0.2) K/uL Immature Gran # (Auto) (0.01-0.20) K/uL VBG pH (7.36-7.41) VBG pCO2 (38-50) mmHg VBG pO2 mmHg VBG HCO3 mmol/L VBG O2 Saturation % VBG Base Excess mEq/L Sodium (136-145) mmol/L Potassium (3.5-5.1) mmol/L Chloride (98-107) mmol/L Carbon Dioxide (21-32) mmol/L Anion Gap (3-11) BUN (6-23) mg/dl Creatinine (0.6-1.2) mg/dl Est Cr Clr Drug Dosing ml/min Est GFR ( Amer) ml/min Est GFR (Non-Af Amer) ml/min BUN/Creatinine Ratio (10-20) Glucose (70-99(Fasting)) mg/dl Calcium (8.6-10.3) mg/dl Total Bilirubin (0.2-1.0) mg/dl AST (13-39) U/L ALT (7-52) U/L Alkaline Phosphatase (34-104) U/L Total Protein (6.0-8.3) gm/dl Albumin (3.4-5.0) gm/dl Globulin (2.5-4.0) gm/dl Albumin/Globulin Ratio (0.9-2) TSH (0.300-4.500) uIu/ml HCG, Qual (Negative) Urine Color Yellow Urine Appearance Clear (Clear) Urine pH 6.0 (4.5-7.5) Ur Specific [place] 1.003 (1.000-1.030) Urine Protein Negative (Negative) Urine Glucose (UA) Negative (Negative) Urine Ketones Negative (Negative) Urine Blood Negative (Negative) Urine Nitrite Negative (Negative) Urine Bilirubin Negative (Negative) Urine Urobilinogen Negative (Negative) Ur Leukocyte Esterase Trace H (Negative) Urine WBC (Auto) 1-5 (0-5) /hpf Urine RBC (Auto) 0-4 (0-4) /hpf U Hyaline Cast (Auto) 1-5 (0-5) /lpf U Epithel Cells (Auto) >30 H (0-5) /lpf Urine Bacteria (Auto) Negative (Negative) Salicylates (3.0-30) mg/dl Urine Opiates Screen Neg (Neg) Ur Methadone, Qual Neg (Neg) Acetaminophen (10-30) ug/ml Urine Barbiturates Neg (Neg) Ur Phencyclidine (PCP) Neg (Neg) U Amphetamin/Meth Scrn Pos H (Neg) MDMA (Ecstasy) Screen Neg (Neg) U Benzodiazepines Scrn Neg (Neg) Ur Cocaine Metabolite Neg (Neg) U Marijuana (THC) Screen Neg (Neg) Ethyl Alcohol mg/dL (<10.0) mg/dl SARS-CoV-2, RNA, NAAT NEGATIVE (NEGATIVE) 12/07/22 12/07/22 12/07/22 Range/Units 15:02 15:02 15:02 WBC 7.49 (4.8-10.8) K/ul RBC 4.28 (4.20-5.40) M/uL Hgb 12.9 (12.0-16.0) g/dl Hct 37.4 (37.0-47.0) % MCV 87.4 (80.0-100.0) fL MCH 30.1 (25.0-34.0) pg MCHC 34.5 (32.0-36.0) g/dL RDW Std Deviation 38.8 (36.4-46.3) fL RDW Coeff of Bernard 12.2 (11.5-14.5) % Plt Count 313 (130-400) K/uL MPV 9.5 (9.4-12.4) fL Immature Gran % (Auto) 0.7 % Neut % (Auto) 64.5 % Lymph % (Auto) 27.2 % [place] % (Auto) 6.0 % Eos % (Auto) 1.2 % Baso % (Auto) 0.4 % Neut # (Auto) 4.83 (1.40-6.50) K/uL Lymph # (Auto) 2.04 (1.2-3.4) K/uL [place] # (Auto) 0.45 (0.11-0.59) K/uL Eos # (Auto) 0.09 (0-0.50) K/uL Baso # (Auto) 0.03 (0-0.2) K/uL Immature Gran # (Auto) 0.05 (0.01-0.20) K/uL VBG pH (7.36-7.41) VBG pCO2 (38-50) mmHg VBG pO2 mmHg VBG HCO3 mmol/L VBG O2 Saturation % VBG Base Excess mEq/L Sodium 134 L (136-145) mmol/L Potassium 3.8 (3.5-5.1) mmol/L Chloride 105 (98-107) mmol/L Carbon Dioxide 20 L (21-32) mmol/L Anion Gap 9 (3-11) BUN 6 (6-23) mg/dl Creatinine 0.81 (0.6-1.2) mg/dl Est Cr Clr Drug Dosing 96.1 ml/min Est GFR ( Amer) 104.6 ml/min Est GFR (Non-Af Amer) 90.2 ml/min BUN/Creatinine Ratio 7.4 L (10-20) Glucose 97 (70-99(Fasting)) mg/dl Calcium 8.5 L (8.6-10.3) mg/dl Total Bilirubin 0.2 (0.2-1.0) mg/dl AST 18 (13-39) U/L ALT 15 (7-52) U/L Alkaline Phosphatase 85 (34-104) U/L Total Protein 7.1 (6.0-8.3) gm/dl Albumin 4.5 (3.4-5.0) gm/dl Globulin 2.6 (2.5-4.0) gm/dl Albumin/Globulin Ratio 1.7 (0.9-2) TSH 3.055 (0.300-4.500) uIu/ml HCG, Qual (Negative) Urine Color Urine Appearance (Clear) Urine pH (4.5-7.5) Ur Specific [place] (1.000-1.030) Urine Protein (Negative) Urine Glucose (UA) (Negative) Urine Ketones (Negative) Urine Blood (Negative) Urine Nitrite (Negative) Urine Bilirubin (Negative) Urine Urobilinogen (Negative) Ur Leukocyte Esterase (Negative) Urine WBC (Auto) (0-5) /hpf Urine RBC (Auto) (0-4) /hpf U Hyaline Cast (Auto) (0-5) /lpf U Epithel Cells (Auto) (0-5) /lpf Urine Bacteria (Auto) (Negative) Salicylates (3.0-30) mg/dl Urine Opiates Screen (Neg) Ur Methadone, Qual (Neg) Acetaminophen (10-30) ug/ml Urine Barbiturates (Neg) Ur Phencyclidine (PCP) (Neg) U Amphetamin/Meth Scrn (Neg) MDMA (Ecstasy) Screen (Neg) U Benzodiazepines Scrn (Neg) Ur Cocaine Metabolite (Neg) U Marijuana (THC) Screen (Neg) Ethyl Alcohol mg/dL (<10.0) mg/dl SARS-CoV-2, RNA, NAAT (NEGATIVE) 12/07/22 12/07/22 12/07/22 Range/Units 15:02 15:02 15:02 WBC (4.8-10.8) K/ul RBC (4.20-5.40) M/uL Hgb (12.0-16.0) g/dl Hct (37.0-47.0) % MCV (80.0-100.0) fL MCH (25.0-34.0) pg MCHC (32.0-36.0) g/dL RDW Std Deviation (36.4-46.3) fL RDW Coeff of Bernard (11.5-14.5) % Plt Count (130-400) K/uL MPV (9.4-12.4) fL Immature Gran % (Auto) % Neut % (Auto) % Lymph % (Auto) % [place] % (Auto) % Eos % (Auto) % Baso % (Auto) % Neut # (Auto) (1.40-6.50) K/uL Lymph # (Auto) (1.2-3.4) K/uL [place] # (Auto) (0.11-0.59) K/uL Eos # (Auto) (0-0.50) K/uL Baso # (Auto) (0-0.2) K/uL Immature Gran # (Auto) (0.01-0.20) K/uL VBG pH (7.36-7.41) VBG pCO2 (38-50) mmHg VBG pO2 mmHg VBG HCO3 mmol/L VBG O2 Saturation % VBG Base Excess mEq/L Sodium (136-145) mmol/L Potassium (3.5-5.1) mmol/L Chloride (98-107) mmol/L Carbon Dioxide (21-32) mmol/L Anion Gap (3-11) BUN (6-23) mg/dl Creatinine (0.6-1.2) mg/dl Est Cr Clr Drug Dosing ml/min Est GFR ( Amer) ml/min Est GFR (Non-Af Amer) ml/min BUN/Creatinine Ratio (10-20) Glucose (70-99(Fasting)) mg/dl Calcium (8.6-10.3) mg/dl Total Bilirubin (0.2-1.0) mg/dl AST (13-39) U/L ALT (7-52) U/L Alkaline Phosphatase (34-104) U/L Total Protein (6.0-8.3) gm/dl Albumin (3.4-5.0) gm/dl Globulin (2.5-4.0) gm/dl Albumin/Globulin Ratio (0.9-2) TSH (0.300-4.500) uIu/ml HCG, Qual Negative (Negative) Urine Color Urine Appearance (Clear) Urine pH (4.5-7.5) Ur Specific [place] (1.000-1.030) Urine Protein (Negative) Urine Glucose (UA) (Negative) Urine Ketones (Negative) Urine Blood (Negative) Urine Nitrite (Negative) Urine Bilirubin (Negative) Urine Urobilinogen (Negative) Ur Leukocyte Esterase (Negative) Urine WBC (Auto) (0-5) /hpf Urine RBC (Auto) (0-4) /hpf U Hyaline Cast (Auto) (0-5) /lpf U Epithel Cells (Auto) (0-5) /lpf Urine Bacteria (Auto) (Negative) Salicylates < 3.0 L (3.0-30) mg/dl Urine Opiates Screen (Neg) Ur Methadone, Qual (Neg) Acetaminophen < 3 L (10-30) ug/ml Urine Barbiturates (Neg) Ur Phencyclidine (PCP) (Neg) U Amphetamin/Meth Scrn (Neg) MDMA (Ecstasy) Screen (Neg) U Benzodiazepines Scrn (Neg) Ur Cocaine Metabolite (Neg) U Marijuana (THC) Screen (Neg) Ethyl Alcohol mg/dL < 10.0 (<10.0) mg/dl SARS-CoV-2, RNA, NAAT (NEGATIVE) 12/07/22 Range/Units 16:23 WBC (4.8-10.8) K/ul RBC (4.20-5.40) M/uL Hgb (12.0-16.0) g/dl Hct (37.0-47.0) % MCV (80.0-100.0) fL MCH (25.0-34.0) pg MCHC (32.0-36.0) g/dL RDW Std Deviation (36.4-46.3) fL RDW Coeff of Bernard (11.5-14.5) % Plt Count (130-400) K/uL MPV (9.4-12.4) fL Immature Gran % (Auto) % Neut % (Auto) % Lymph % (Auto) % [place] % (Auto) % Eos % (Auto) % Baso % (Auto) % Neut # (Auto) (1.40-6.50) K/uL Lymph # (Auto) (1.2-3.4) K/uL [place] # (Auto) (0.11-0.59) K/uL Eos # (Auto) (0-0.50) K/uL Baso # (Auto) (0-0.2) K/uL Immature Gran # (Auto) (0.01-0.20) K/uL VBG pH 7.32 L (7.36-7.41) VBG pCO2 45 (38-50) mmHg VBG pO2 36 mmHg VBG HCO3 23 mmol/L VBG O2 Saturation 69.8 % VBG Base Excess -3.1 mEq/L Sodium (136-145) mmol/L Potassium (3.5-5.1) mmol/L Chloride (98-107) mmol/L Carbon Dioxide (21-32) mmol/L Anion Gap (3-11) BUN (6-23) mg/dl Creatinine (0.6-1.2) mg/dl Est Cr Clr Drug Dosing ml/min Est GFR ( Amer) ml/min Est GFR (Non-Af Amer) ml/min BUN/Creatinine Ratio (10-20) Glucose (70-99(Fasting)) mg/dl Calcium (8.6-10.3) mg/dl Total Bilirubin (0.2-1.0) mg/dl AST (13-39) U/L ALT (7-52) U/L Alkaline Phosphatase (34-104) U/L Total Protein (6.0-8.3) gm/dl Albumin (3.4-5.0) gm/dl Globulin (2.5-4.0) gm/dl Albumin/Globulin Ratio (0.9-2) TSH (0.300-4.500) uIu/ml HCG, Qual (Negative) Urine Color Urine Appearance (Clear) Urine pH (4.5-7.5) Ur Specific [place] (1.000-1.030) Urine Protein (Negative) Urine Glucose (UA) (Negative) Urine Ketones (Negative) Urine Blood (Negative) Urine Nitrite (Negative) Urine Bilirubin (Negative) Urine Urobilinogen (Negative) Ur Leukocyte Esterase (Negative) Urine WBC (Auto) (0-5) /hpf Urine RBC (Auto) (0-4) /hpf U Hyaline Cast (Auto) (0-5) /lpf U Epithel Cells (Auto) (0-5) /lpf Urine Bacteria (Auto) (Negative) Salicylates (3.0-30) mg/dl Urine Opiates Screen (Neg) Ur Methadone, Qual (Neg) Acetaminophen (10-30) ug/ml Urine Barbiturates (Neg) Ur Phencyclidine (PCP) (Neg) U Amphetamin/Meth Scrn (Neg) MDMA (Ecstasy) Screen (Neg) U Benzodiazepines Scrn (Neg) Ur Cocaine Metabolite (Neg) U Marijuana (THC) Screen (Neg) Ethyl Alcohol mg/dL (<10.0) mg/dl SARS-CoV-2, RNA, NAAT (NEGATIVE) Administered Medications Discontinued Medications Sodium Chloride (Nss 1000ml) 1,000 mls @ 999 mls/hr IV .[id number] OJ Stop: 12/07/22 16:00 Last Infusion: 12/07/22 16:23 Dose: 0 mls/hr Documented By: Admin: 12/07/22 15:38 Dose: 999 mls/hr Documented By: MMZ Lorazepam (Lorazepam 2 Mg/1 Ml Vial) 1 mg IV NOW STA Stop: 12/07/22 21:19 Last Admin: 12/07/22 21:43 Dose: 1 mg Documented By: MJJ Discharge Plan Visit Data Chief Complaint: Mental Health Evaluation Stated Complaint: OVERDOSE ED Provider: Zackary Peralta Discharge Problem: Overdose, Anxiety, Depression with suicidal ideation Patient Disposition: Still a Patient Forms Stand Alone Forms: [facility], Suicide Prevention Resources Prescriptions Prescriptions: No Action atomoxetine 80 mg capsule 80 mg PO DAILY lurasidone [Latuda] 120 mg tablet 120 mg PO DAILY Loreev XR 2 mg capsule,extended release 24hr 2 mg PO DAILY Mydayis 25 mg capsule, ER triphasic 24 hr 25 mg PO DAILY venlafaxine 225 mg Tablet Extended Release 24hr 225 mg PO DAILY Referrals Referrals: Shelly Gutierrez MD [Primary Care Provider] - Overdose Qualifiers: Encounter type: initial encounter Injury intent: intentional self-harm Qualified Code(s): T50.902A - Poisoning by unspecified drugs, medicaments and biological substances, intentional self-harm, initial encounter
[2022-12-07 15:43] LABS: Appearance Urine Clear (Clear); Bacteria Urine Automated Negative (Negative); Bilirubin Urine Negative (Negative); Blood Urine Negative (Negative); Color Urine Yellow; Epithelial Cell Urine Auto >30 /lpf (0-5); Glucose Urine UA Negative (Negative); Ketones Urine Negative (Negative); Leukocyte Esterase Urine Trace (Negative); Nitrite Urine Negative (Negative); Protein Urine Negative (Negative); RBC Urine Automated 0-4 /hpf (0-4); Specific Gravity Urine 1.003 (1.000-1.030); Urobilinogen Urine Negative (Negative)
[2022-12-07 15:53] LABS: Pregnancy Test, Serum Negative (Negative)
[2022-12-07 15:55] LABS: Albumin Globulin Ratio 1.7 (0.9-2); Albumin Level 4.5 gm/dl (3.4-5.0); BUN Creatinine Ratio 7.4 (10-20); Bilirubin,Total 0.2 mg/dl (0.2-1.0); Calcium 8.5 mg/dl (8.6-10.3); Creatinine Clr Calc Pharmacy 96.1 ml/min; Est GFR (African American) 104.6 ml/min; Est GFR (Non-African American) 90.2 ml/min; Globulin 2.6 gm/dl (2.5-4.0); Potassium 3.8 mmol/L (3.5-5.1); Total Protein 7.1 gm/dl (6.0-8.3)
[2022-12-07 16:01] LABS: Basophils # (auto) 0.03 K/uL (0-0.2); Basophils % (auto) 0.4 %; Eosinophils # (auto) 0.09 K/uL (0-0.50); Eosinophils % (auto) 1.2 %; Hematocrit (blood only) 37.4 % (37.0-47.0); Hemoglobin 12.9 g/dl (12.0-16.0); Immature Granulocytes # (auto) 0.05 K/uL (0.01-0.20); Immature Granulocytes % (auto) 0.7 %; Lymphocytes # (auto) 2.04 K/uL (1.2-3.4); Lymphocytes % (auto) 27.2 %; Mean Corpuscular Hemoglobin 30.1 pg (25.0-34.0); Mean Corpuscular Hgb Conc 34.5 g/dL (32.0-36.0); Mean Corpuscular Volume 87.4 fL (80.0-100.0); Mean Platelet Volume 9.5 fL (9.4-12.4); Monocytes # (auto) 0.45 K/uL (0.11-0.59); Neutrophils # (auto) 4.83 K/uL (1.40-6.50); Neutrophils % (auto) 64.5 %; Platelet Count 313 K/uL (130-400); RDW Coefficient of Variation 12.2 % (11.5-14.5); RDW Standard Deviation 38.8 fL (36.4-46.3); Red Blood Count 4.28 M/uL (4.20-5.40); White Blood Count 7.49 K/ul (4.8-10.8)
[2022-12-07 16:31] LABS: Amphetamines+Metham, Urine Pos (Neg); Barbiturates, Urine Neg (Neg); Benzodiazepine, Urine Neg (Neg); Cocaine, Urine Neg (Neg); MDMA (Ecstacy), Urine Neg (Neg); Methadone, Urine Neg (Neg); Opiate, Urine Neg (Neg); Phencyclidine, Urine Neg (Neg)
[2022-12-07 16:41] LABS: Base Excess VBG -3.1 mEq/L; HCO3 VBG 23 mmol/L; Oxygen Saturation VBG 69.8 %; PCO2 VBG 45 mmHg (38-50); PO2 VBG 36 mmHg; pH VBG 7.32 (7.36-7.41)
[2022-12-07 17:40] LABS: Acetaminophen < 3 ug/ml (10-30); Salicylate < 3.0 mg/dl (3.0-30)
[2022-12-07] MEDS ORDERED: LORazepam 2 MG/1 ML VIAL IV STA (21:18)
--- NOTE | 2022-12-08 02:12 | Emergency Department Note ---
ED Visit Note Patient was turned over to me by Dr. Peralta at the end of his shift. Patient is currently medically cleared for potential overdose. Patient has been evaluated by the [facility] psychiatric team and has been accepted for admission. Patient's disposition is admit to [facility] Paperwork has been signed by me Patient was admitted at 2 AM .
[2022-12-08] MEDS ORDERED: SODIUM CHLORIDE 0.65% NA SOLN 45 ML (OCEAN) PRN (03:25)
[2022-12-08] MEDS ORDERED: MAGNESIUM HYDROXIDE SUSP 30 ML UDC PO PRN (03:25)
[2022-12-08] MEDS ORDERED: ACETAMINOPHEN 325 MG TAB PO PRN (03:25)
[2022-12-08] MEDS ORDERED: BISMUTH SUBSALICYLATE LIQD 236 ML PO PRN (03:25)
[2022-12-08] MEDS ORDERED: ALUMINUM/MAGNESIUM SUSP 30 ML UDC PO PRN (03:25)
[2022-12-08] MEDS: TOLTERODINE TARTRATE LA 4 MG CAPCR PO SCH (07:56)
[2022-12-08] MEDS: hydrOXYzine HCl 25 MG TAB PO PRN ×2 (08:24→20:58)
[2022-12-08] MEDS ORDERED: VENLAFAXINE HCL XR 150 MG CAPXR PO SCH ×2 (09:00→10:30)
[2022-12-08] MEDS ORDERED: TOLTERODINE TARTRATE LA 4 MG CAPCR PO SCH (10:30)
[2022-12-08] MEDS: ATOMOXETINE HCL 40 MG CAPSULE PO SCH (11:04)
[2022-12-08] MEDS ORDERED: AMPHETAMINE ASP/SULF/DEXTRAMPH ER 20 MG CAP PO SCH (12:00)
[2022-12-08] MEDS: LORazepam 0.5 MG TAB PO SCH ×2 (12:19→16:59)
--- NOTE | 2022-12-08 13:21 | History & Physical ---
Date of Service December 08, 2022 Impression / Recommendations Impression 42 y/o woman with schizoaffective disorder, depressed type, OCD, ADHD who impulsively overdosed on old lurasidone (but didn't take any of her current lurasidone) "to make everything stop". She was admitted voluntarily on 12/07/2022. She is currently psychiatrically unstable and requires psychiatric hospitalization for stabilization, safety, and possible medication adjustment. (1) Schizoaffective disorder, depressive type: (2) ADHD (attention deficit hyperactivity disorder): (3) OCD (obsessive compulsive disorder): (4) Overdose: Encounter type: initial encounter Injury intent: intentional self-harm Qualified Code(s): T50.902A - Poisoning by unspecified drugs, medicaments and biological substances, intentional self-harm, initial encounter Plan 12/07/2022: The patient was admitted to the [facility] ([facility]) on q15 min checks (behavioral with suicide precautions) for safety. The patient will participate in group, recreational, and milieu therapies and will be offered additional individual and family sessions as clinically appropriate. * continue venlafaxine XR 225 mg daily * continue atomoxetine 80 mg daily (as antidepressant) * lorazepam 0.5 mg QID (in place of non-formulary Loreev XR 2 mg daily) * dextroamphetaine-amphetamine XR 20 mg daily (in place of non-formulary Mydayis 25 mg daily) Inventory Assets Strengths: supportive relationships, has local supports,voluntary, good insight, intelligent employed, Needs: safety and stabilization, medication adjustment, additional coping skills, increased outpatient services Suicide Risk Level Suicide Risk Level: Moderate (q15 min suicide checks) Suicide Risk Level Comments: denies current suicidal thoughts following outpatient overdose Risk Factors Assessment Male: No : Yes Do You Have Access To A Gun?: No Health Problems: No Mental Health Diagnoses: Yes Substance Use Disorders: No Previous Attempt: Yes Previous Psychiatric Hospitalization: Yes Protective Factors Assessment : Yes Responsible for Young Children: Yes 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 Chief Complaint "Am I going to get Ativan?". History of Present Illness As part of a thorough review of the available medical records, I have read and confirmed the following notes by the ED physician: "The patient is a 42-year-old female who presented to the emergency department for an evaluation of mental health issues. The patient has been having problems with anxiety. She states that she had problems recently with her in-laws. Then today she had an issue with the check that was written for her child's daycare. They thought the check was not coming through and the patient was very anxious and angered by this. She admits that she took an overdose of her Latuda 80 mg. She states that at 2 PM she took 27 tablets. The police went to the house. The patient did text her significant other. The call to the police was made at 2:13 PM. The police were on scene at 2:22 PM. The patient has been with the police ever since. She states that she has been taking this medication for quite some time but the bottle in question was old. It was 30 tablets total but she thinks that she took 3 tablets out of this previous bottle. Currently there are 7 pills left. So the patient states that she took 20 tablets all at 1 time. She denies having any vomiting." "The patient is a 42-year-old female who presented to the emergency department for an evaluation of anxiety depression and suicidal ideation with gesture. The patient took an overdose of some of her prescription medication. The patient was reevaluated multiple times. Laboratory studies were obtained. The patient was observed in the emergency department for a period of 8 hours after the ingestion. I discussed the patient's condition with poison control. They felt that she could be medically cleared after that observation time. The patient was resting comfortably. She was tachycardic and Poison control recommended treating this with benzodiazepines. Ativan was ordered. Fluids were ordered." liaison the following note by the ED psychiatric dependency case manager: "She admits to taking an overdose of (20) 80mg Latuda tablets that were an old prescription of hers. She took these at approx. 1400 and texted her that she had done so, prompting him to call the police. Shahla states that she is depressed because her fhbucd-lh-zva has been awful to her and she can't take it anymore. She also received a call today from her child's daycare about a missing payment that put her over the edge. She sees Dr. Qiana Kaufman for therapy and has an appointment coming up on 12/19. She did not speak to her therapist about her suicidal feelings as her therapist is on vacation. Shahla states she is diagnosed with schizoaffective disorder." "Shahla stated she had thoughts of suicide today and intentionally overdosed on medication. She stated "I was being stupid. I'm not sure if I really wanted to . I guess I would have taken a lot more if I was." Shahla stated she called her after taking the medication. She stated stressor is conflict with her mother in law. Shahla stated "she is a very difficult person to deal with." Shahla stated she has attempted suicide multiple times in the past via intentional overdose. She stated she has been inpatient on , [facility], and "a variety of places." She denies HI or aggression. She denies SIB. She denies hallucinations, paranoia, or delusional thinking. She denies any medical issues. She denies history of trauma or abuse. She denies drug or alcohol use. 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 Shahla state d she sees Dr. Holguin at [facility] for medication management. She sees Russel Kaufman at [facility] for therapy. Shahla is agreeable with recommendation for inpatient mental health treatment." and the following note by the psychiatric liaison nurse: "Pt. alert and oriented x4. Pleasant and cooperative. Anxious and depressed. Pt. arrived at ED via ambulance after intentional overdose of 20 tablets of 80mg Latuda. Willing for inpatient treatment. Pt states her stressors have been conflicts with her jnjqwz-yn-uor and a missed payment from her child's daycare. Pt states she has felt suicidal for awhile. Unable to identify exactly how long she has been suicidal for. Pt. states the missed payment got her to the point to spontaneously overdose. Pt. has a history of intentional overdoses. Hx of inpatient stays. Last inpatient stay in 2019 at [facility]. Pt states having hx of ADHD, anxiety, depression, and Schizoaffective disorder. Denies hx or current SIB. Denies substance abuse (other than prescriptions overdose). Denies tobacco use . Pt. states a hx of seizure disorder but has not had a seizure since 5th grade. States diet and sleep have been normal. Denies having guns in the home. Outpatient provider include Dr. Holguin- Psychiatry/Medication Management at [facility], Dr. Qiana Kaufman for therapy at [facility], Dr. Gutierrez (PCP). ROIs obtained for these providers as well as Tremayne and Kariizzy Walker (parents) and Terrence Byrne (). Pt states she is currently taking Latuda, Effexor, Atomoxetine, Mydayis, Loreev XR, and tolterodine ER."" Review of the medical record reveals psychiatric history of previous admission here in October 2018 following overdose. Pt. carries diagnosis of Schizoaffective Disorder, Depressed Type, ADHD, and in the past OCD. Review of pertinent labs reveals they are noncontributory except for urine toxicology screen that was positive for metabolites of amphetamine (which is prescribed). BAL was <10 mg/dL. Current medications include venlafaxine XR 225 mg daily, atomoxetine 80 mg daily, lurasidone 120 mg daily, dextroamphetamine-amphetamine XR (Mydayis) 25 mg daily, lorazepam XR (Loreev XR) 2 mg daily, tolterodine 4 mg daily. On exam was notably preoccupied with lorazepam and stimulant prescriptions and resisted my suggestion that we should do an assessment of things such as her diagnosis and symptoms before I order medication. Pt reports a number of ongoing stressors including finances and fhyhcy-qr-afq but says these haven't changed over the past day or two. She had an unpleasant interaction with her hqrssz-tk-mwy last week. She's "been having suicidal thoughts for a while" and isn't really sure why she took the overdose yesterday. She says she took 20 80 mg lurasidone from an old prescription (her current dose requires her to take two 60 mg capsules). She "just wanted it all to stop for a while" and is "not sure" that she expected this to kill her. Past Psychiatric History Current Psychiatric Diagnosis: ADHD, anxiety, schizoaffective disorder, depressive type (?) Outpatient Services: Qiana George for therapy, Albertina dependency case manager Previous Psych Admissions: [facility] (most recently October 2018, [facility], [facility] 2 years ago Do You Have Access To A Gun?: No History of Previous Suicide Attempt: Yes Past Medication Trials: Concertamade her feel angry and paranoid Adderall"bad withdrawal" Cymbalta Effexorfelt she did well on it Zyprexa Wellbutrin Prozac"did not work" Allergies Allergy/AdvReac Type Severity Reaction Status Date / Time oxycodone Allergy Intermediate RASH Verified 12/07/22 15:51 codeine Allergy Mild HIVES Verified 12/07/22 15:51 benztropine Allergy Unknown itchy rash Verified 12/07/22 15:51 carbamazepine Allergy Unknown Unknown Verified 12/07/22 15:51 fluoxetine Allergy Unknown UNSURE Verified 12/07/22 15:51 Home Medications Medication Instructions Recorded Confirmed Type atomoxetine 80 mg capsule 80 mg PO DAILY 12/07/22 12/07/22 History dextroamphetamine-amphetamine ER 25 mg PO DAILY 12/07/22 12/07/22 History 25 mg capsule,3 bead,ext release 24hr (Mydayis) lorazepam 2 mg capsule,extended 2 mg PO DAILY 12/07/22 12/07/22 History release 24 hr (Loreev XR) lurasidone 120 mg tablet (Latuda) 120 mg PO DAILY 12/07/22 12/07/22 History venlafaxine 225 mg tablet,extended 300 mg PO DAILY 12/07/22 12/08/22 History release 24 hr tolterodine 4 mg capsule,extended 4 mg PO DAILY 12/08/22 12/08/22 History release 24 hr Family History Family History of: Depression and Anxiety Family Mental Health History Comment: depression, anxiety, ADHD on maternal side Alcohol History Hx of Alcohol Use Over the Past 12 Months: No AUDIT Total Score: 0 Smoking Use Have You Smoked or Used Tobacco Products in the Last 30 Days: No Smoking Status: Never smoker Substance History Hx of Prescription Med Misuse Over the Past 12 Months: No Hx of Over the Counter Med Misuse Over the Past 12 Months: No Hx of Inhalent Misuse Over the Past 12 Months: No Hx of Organic Substance Use Over the Past 12 Months: No Hx of Illegal Substances/Street Drug Use Over Past 12 Months: No Problems as a Result of Past Substance Use: None Identified Personal History Living Arrangements: Home Living Arrangements Comments: [facility] Highest Grade Completed: Vocational Training Highest Grade Completed Comment: associates degree Marital Status: Number Of Children: 2 Beliefs That Will Affect Care: None Hx Legal Problems: No Hx Traumatic Life Events: Yes Patient History Medical History (Updated 12/08/22 @ 14:26 by Elliot Bojorquez MD) ADHD (attention deficit hyperactivity disorder) Codeine overdose Depression with suicidal ideation Eating disorder OCD (obsessive compulsive disorder) Overdose of nonsteroidal anti-inflammatory drug (NSAID) Tylenol overdose Surgical History No history of previous surgery Family History Other No significant family history Social History Smoking Status: Never smoker Preferred Language: Polish Communication Ability: Effective Bulk Picker Required: No Beliefs That Will Affect Care: None marital status: Single Current Living Situation: Family current occupational status: employed Feels Safe at Home: Yes Gender Identity: Female Assistive Devices: Contacts and Glasses Review of Systems Psychiatric: + depression, + hopelessness, + anhedonia, + suicidal ideation and + anxiety Physical Exam Psychiatric: Orientation: alert, oriented to person, oriented to place, oriented to time and cooperative (superficially) Apperance: appropriately dressed, + disheveled and appeared stated age Eye Contact: + fair eye contact Motor Behavior: no abnormal motor movements Speech: normal rate/rhythm/volume of speech Affect: + tearful affect Mood: + depressed mood and + anxious mood Thought Process: + circumstantial thought process Thought Content: + cognitive distortions Suicidal Thoughts: denies suicidal thoughts (now), denies suicidal plan and denies suicidal intent Homicidal Thoughts: denies homicidal thoughts Hallucinations: no auditory hallucinations and no visual hallucinations Cognition: recent memory grossly intact, remote memory grossly intact, attention grossly intact and language grossly intact Estimated Intelligence: average estimated intelligence Insight: + fair insight Judgment: + limited judgement Vital Signs (Past 24 Hours): Last Vital Signs Temp 36.4 C L 12/08/22 06:44 Pulse 98 H 12/08/22 06:45 Resp 16 12/08/22 06:44 BP 129/86 12/08/22 06:45 Pulse Ox 100 12/08/22 03:35 O2 Del Method Room Air 12/08/22 03:35 Exam Statement: A physical exam was performed in the ED for the purposes of medical clearance. I accept that physical as correct and adequate for the purposes of the inpatient physical exam. Results & Data ([facility]) Laboratory Results Laboratory Results - last 24 hr 12/07/22 12/07/22 12/07/22 14:52 14:52 14:52 WBC RBC Hgb Hct MCV MCH MCHC RDW Std Deviation RDW Coeff of Bernard Plt Count MPV Immature Gran % (Auto) Neut % (Auto) Lymph % (Auto) [place] % (Auto) Eos % (Auto) Baso % (Auto) Neut # (Auto) Lymph # (Auto) [place] # (Auto) Eos # (Auto) Baso # (Auto) Immature Gran # (Auto) VBG pH VBG pCO2 VBG pO2 VBG HCO3 VBG O2 Saturation VBG Base Excess Sodium Potassium Chloride Carbon Dioxide Anion Gap BUN Creatinine Est Cr Clr Drug Dosing Est GFR ( Amer) Est GFR (Non-Af Amer) BUN/Creatinine Ratio Glucose Calcium Total Bilirubin AST ALT Alkaline Phosphatase Total Protein Albumin Globulin Albumin/Globulin Ratio TSH HCG, Qual Urine Color Yellow Urine Appearance Clear Urine pH 6.0 Ur Specific [place] 1.003 Urine Protein Negative Urine Glucose (UA) Negative Urine Ketones Negative Urine Blood Negative Urine Nitrite Negative Urine Bilirubin Negative Urine Urobilinogen Negative Ur Leukocyte Esterase Trace H Urine WBC (Auto) 1-5 Urine RBC (Auto) 0-4 U Hyaline Cast (Auto) 1-5 U Epithel Cells (Auto) >30 H Urine Bacteria (Auto) Negative Salicylates Urine Opiates Screen Neg Ur Methadone, Qual Neg Acetaminophen Urine Barbiturates Neg Ur Phencyclidine (PCP) Neg U Amphetamines Confirm Pending U Amphetamin/Meth Scrn Pos H U Methamphetamin Confrm Pending MDMA (Ecstasy) Screen Neg U Benzodiazepines Scrn Neg Ur Cocaine Metabolite Neg U Marijuana (THC) Screen Neg Drug Screen Comment Pending Ethyl Alcohol mg/dL SARS-CoV-2, RNA, NAAT 12/07/22 12/07/22 12/07/22 14:57 15:02 15:02 WBC 7.49 RBC 4.28 Hgb 12.9 Hct 37.4 MCV 87.4 MCH 30.1 MCHC 34.5 RDW Std Deviation 38.8 RDW Coeff of Bernard 12.2 Plt Count 313 MPV 9.5 Immature Gran % (Auto) 0.7 Neut % (Auto) 64.5 Lymph % (Auto) 27.2 [place] % (Auto) 6.0 Eos % (Auto) 1.2 Baso % (Auto) 0.4 Neut # (Auto) 4.83 Lymph # (Auto) 2.04 [place] # (Auto) 0.45 Eos # (Auto) 0.09 Baso # (Auto) 0.03 Immature Gran # (Auto) 0.05 VBG pH VBG pCO2 VBG pO2 VBG HCO3 VBG O2 Saturation VBG Base Excess Sodium 134 L Potassium 3.8 Chloride 105 Carbon Dioxide 20 L Anion Gap 9 BUN 6 Creatinine 0.81 Est Cr Clr Drug Dosing 96.1 Est GFR ( Amer) 104.6 Est GFR (Non-Af Amer) 90.2 BUN/Creatinine Ratio 7.4 L Glucose 97 Calcium 8.5 L Total Bilirubin 0.2 AST 18 ALT 15 Alkaline Phosphatase 85 Total Protein 7.1 Albumin 4.5 Globulin 2.6 Albumin/Globulin Ratio 1.7 TSH HCG, Qual Urine Color Urine Appearance Urine pH Ur Specific [place] Urine Protein Urine Glucose (UA) Urine Ketones Urine Blood Urine Nitrite Urine Bilirubin Urine Urobilinogen Ur Leukocyte Esterase Urine WBC (Auto) Urine RBC (Auto) U Hyaline Cast (Auto) U Epithel Cells (Auto) Urine Bacteria (Auto) Salicylates Urine Opiates Screen Ur Methadone, Qual Acetaminophen Urine Barbiturates Ur Phencyclidine (PCP) U Amphetamines Confirm U Amphetamin/Meth Scrn U Methamphetamin Confrm MDMA (Ecstasy) Screen U Benzodiazepines Scrn Ur Cocaine Metabolite U Marijuana (THC) Screen Drug Screen Comment Ethyl Alcohol mg/dL SARS-CoV-2, RNA, NAAT NEGATIVE 12/07/22 12/07/22 12/07/22 15:02 15:02 15:02 WBC RBC Hgb Hct MCV MCH MCHC RDW Std Deviation RDW Coeff of Bernard Plt Count MPV Immature Gran % (Auto) Neut % (Auto) Lymph % (Auto) [place] % (Auto) Eos % (Auto) Baso % (Auto) Neut # (Auto) Lymph # (Auto) [place] # (Auto) Eos # (Auto) Baso # (Auto) Immature Gran # (Auto) VBG pH VBG pCO2 VBG pO2 VBG HCO3 VBG O2 Saturation VBG Base Excess Sodium Potassium Chloride Carbon Dioxide Anion Gap BUN Creatinine Est Cr Clr Drug Dosing Est GFR ( Amer) Est GFR (Non-Af Amer) BUN/Creatinine Ratio Glucose Calcium Total Bilirubin AST ALT Alkaline Phosphatase Total Protein Albumin Globulin Albumin/Globulin Ratio TSH 3.055 HCG, Qual Urine Color Urine Appearance Urine pH Ur Specific [place] Urine Protein Urine Glucose (UA) Urine Ketones Urine Blood Urine Nitrite Urine Bilirubin Urine Urobilinogen Ur Leukocyte Esterase Urine WBC (Auto) Urine RBC (Auto) U Hyaline Cast (Auto) U Epithel Cells (Auto) Urine Bacteria (Auto) Salicylates < 3.0 L Urine Opiates Screen Ur Methadone, Qual Acetaminophen < 3 L Urine Barbiturates Ur Phencyclidine (PCP) U Amphetamines Confirm U Amphetamin/Meth Scrn U Methamphetamin Confrm MDMA (Ecstasy) Screen U Benzodiazepines Scrn Ur Cocaine Metabolite U Marijuana (THC) Screen Drug Screen Comment Ethyl Alcohol mg/dL < 10.0 SARS-CoV-2, RNA, NAAT 12/07/22 12/07/22 15:02 16:23 WBC RBC Hgb Hct MCV MCH MCHC RDW Std Deviation RDW Coeff of Bernard Plt Count MPV Immature Gran % (Auto) Neut % (Auto) Lymph % (Auto) [place] % (Auto) Eos % (Auto) Baso % (Auto) Neut # (Auto) Lymph # (Auto) [place] # (Auto) Eos # (Auto) Baso # (Auto) Immature Gran # (Auto) VBG pH 7.32 L VBG pCO2 45 VBG pO2 36 VBG HCO3 23 VBG O2 Saturation 69.8 VBG Base Excess -3.1 Sodium Potassium Chloride Carbon Dioxide Anion Gap BUN Creatinine Est Cr Clr Drug Dosing Est GFR ( Amer) Est GFR (Non-Af Amer) BUN/Creatinine Ratio Glucose Calcium Total Bilirubin AST ALT Alkaline Phosphatase Total Protein Albumin Globulin Albumin/Globulin Ratio TSH HCG, Qual Negative Urine Color Urine Appearance Urine pH Ur Specific [place] Urine Protein Urine Glucose (UA) Urine Ketones Urine Blood Urine Nitrite Urine Bilirubin Urine Urobilinogen Ur Leukocyte Esterase Urine WBC (Auto) Urine RBC (Auto) U Hyaline Cast (Auto) U Epithel Cells (Auto) Urine Bacteria (Auto) Salicylates Urine Opiates Screen Ur Methadone, Qual Acetaminophen Urine Barbiturates Ur Phencyclidine (PCP) U Amphetamines Confirm U Amphetamin/Meth Scrn U Methamphetamin Confrm MDMA (Ecstasy) Screen U Benzodiazepines Scrn Ur Cocaine Metabolite U Marijuana (THC) Screen Drug Screen Comment Ethyl Alcohol mg/dL SARS-CoV-2, RNA, NAAT Current Inpatient Medications Current Inpatient Medications: Current Inpatient Medications Acetaminophen (Acetaminophen 325 Mg Tab) 650 mg PO Q4H PRN PRN Reason: Headache or Minor Fever Stop: 01/07/23 03:24 Al Hydrox/Mg Hydrox/Simethicone (Aluminum/Magnesium Susp 30 Ml Udc) 30 ml PO Q4H PRN PRN Reason: GI Upset Stop: 01/07/23 03:24 Amphetamine/Dextroamphetamine (Amphetamine Asp/Sulf/Dextramph Er 20 Mg Cap) 20 mg PO QAM OJ Stop: 12/22/22 11:59 Last Admin: 12/08/22 12:19 Dose: 20 mg Atomoxetine HCl (Atomoxetine Hcl 40 Mg Capsule) 80 mg PO DAILY OJ Stop: 01/07/23 10:29 Last Admin: 12/08/22 11:04 Dose: 80 mg Bismuth Subsalicylate (Bismuth Subsalicylate Liqd 236 Ml) 15 ml PO PRN PRN PRN Reason: Loose Stool Stop: 01/07/23 03:24 Hydroxyzine HCl (Hydroxyzine Hcl 25 Mg Tab) 50 mg PO HSZ PRN PRN Reason: Insomnia Stop: 01/07/23 03:24 Hydroxyzine HCl (Hydroxyzine Hcl 25 Mg Tab) 25 mg PO Q4H PRN PRN Reason: Anxiety Stop: 01/07/23 03:24 Last Admin: 12/08/22 08:24 Dose: 25 mg Lorazepam (Lorazepam 0.5 Mg Tab) 0.5 mg PO QID OJ Stop: 01/07/23 12:59 Last Admin: 12/08/22 12:19 Dose: 0.5 mg Lurasidone HCl (Lurasidone Hcl 40 Mg Tab) 120 mg PO DAILY OJ Stop: 01/08/23 08:59 Magnesium Hydroxide (Magnesium Hydroxide Susp 30 Ml Udc) 30 ml PO DAILY PRN PRN Reason: Constipation Stop: 01/07/23 03:24 Sodium Chloride (Sodium Chloride 0.65% Na Soln 45 Ml ([place])) 1 - 2 sprays NA PRN PRN PRN Reason: Nasal Dryness/Congestion Stop: 01/07/23 03:24 Tolterodine Tartrate (Tolterodine Tartrate [place] 4 Mg Capcr) 4 mg PO DAILY [facility] Stop: 01/07/23 08:59 Last Admin: 12/08/22 07:56 Dose: 4 mg Venlafaxine HCl (Venlafaxine Hcl Xr 75 Mg Capxr) 225 mg PO DAILY [facility] Stop: 01/08/23 08:59
--- NOTE | 2022-12-08 22:22 | Electrocardiogram Report ---
Test Reason : Blood Pressure : / mmHG Vent. Rate : 119 BPM Atrial Rate : 119 BPM P-R Int : 168 ms QRS Dur : 076 ms QT Int : 318 ms P-R-T Axes : 054 067 037 degrees QTc Int : 447 ms Sinus tachycardia Otherwise normal ECG When compared with ECG of 08-NOV-2015 16:05, Vent. rate has increased BY 50 BPM Confirmed by Oc Roberts ([id number]) on 12/08/2022 10:21:51 PM Referred By: REFERRED SELF Confirmed By:Oc Roberts
[2022-12-09] MEDS: ATOMOXETINE HCL 40 MG CAPSULE PO SCH (08:46)
[2022-12-09] MEDS: VENLAFAXINE HCL XR 75 MG CAPXR PO SCH (08:46)
[2022-12-09] MEDS: TOLTERODINE TARTRATE LA 4 MG CAPCR PO SCH (08:46)
[2022-12-09] MEDS: MYDAYIS PO SCH (08:47)
[2022-12-09] MEDS: LORAZEPAM PO SCH (08:47)
[2022-12-09] MEDS: PATIENT'S OWN CONTROLLED MED 2 PO SCH (08:48)
[2022-12-09] MEDS: PATIENT'S OWN CONTROLLED MED 1 PO SCH (08:48)
[2022-12-09] MEDS ORDERED: LURASIDONE HCL 40 MG TAB PO SCH (09:00)
--- NOTE | 2022-12-09 11:54 | Psychiatric Progress Note ---
Date of Service December 09, 2022 Impression / Recommendations Impression 42 y/o woman with schizoaffective disorder, depressed type, OCD, ADHD who impulsively overdosed on old lurasidone (but didn't take any of her current lurasidone) "to make everything stop". She was admitted voluntarily on 12/07/2022. Diagnostically seems most consistent with schizoaffective disorder depressed episode as well as likely cluster B traits component. Review of her previous hospitalizations notable for episodes of intense self-harming and anger outbursts when limits were set or she felt she was not getting what she desired. She is currently psychiatrically unstable and requires psychiatric hospitaliza tion for stabilization, safety, and possible medication adjustment. MNPR given history of aggression, irritability, sleep difficulty, uses room as refuge when overwhelmed by peers and cannot tolerate a roommate 12/09/2022: Reviewed interim progress per Dr. Orozco's note and records from her previous hospitalizations. Remains very fixated on getting her medications and needing things to be done in a certain way which could be related to OCD but certainly seems to also be a likely cluster B/BPD component. Walking around holding her neck at times which per past records seems to be related to a type of chronic self-harming. She denies SI today but mood remains very labile and irritable. Restarted on all her prior to admission medications, her Latuda was ordered for this morning when she typically takes it at bedtime so will adjust this. Reviewed that typically we don't restart the same medication following an overdose attempt but she is insistent that latuda is the only medication that h elps her with sleep and mood and does not feel that taking it will cause her to think back to her prior suicide attempt. Even after getting dose this morning she denies any medication side effects except sedation, no signs of toxicity from recent overdose and QTc was normal in ED so no current safety concerns for restarting this. Discussed medication treatment options in detail. Discussed risks, benefits and alternatives. She is not interested in making any medication changes. She desires to continue with Latuda 120mg HS for mood stabilization and schizoaffective disorder and insomnia. Reviewed side effects including but not limited to: movement (TD, NMS), cardiac (QTc prolongation), and metabolic (stroke, insulin resistance) and necessity for fasting lipid and glucose labwork and AIMS done with score of 0. (1) Schizoaffective disorder, depressive type: (2) ADHD (attention deficit hyperactivity disorder): (3) OCD (obsessive compulsive disorder): (4) Overdose: (5) Cluster B personality disorder: Plan 12/08/2022: * Continue venlafaxine XR 225mg daily * Continue atomoxetine 80mg daily * Restarted prior to admission Loreev XR 2mg daily and Mydayis ER 25mg daily * Restart Latuda 120mg HS (starting tomorrow since got dose this AM). 12/07/2022: The patient was admitted to the [facility] ([facility] mental health unit) on q15 min checks (behavioral with suicide precautions) for safety. The patient will participate in group, recreational, and milieu therapies and will be offered additional individual and family sessions as clinically appropriate. * continue venlafaxine XR 225 mg daily * continue atomoxetine 80 mg daily (as antidepressant) * lorazepam 0.5 mg QID (in place of non-formulary Loreev XR 2 mg daily) * dextroamphetaine-amphetamine XR 20 mg daily (in place of non-formulary Mydayis 25 mg daily) Inventory Assets Strengths: supportive relationships, has local supports,voluntary, good insight, intelligent employed, Needs: safety and stabilization, medication adjustment, additional coping skills, increased outpatient services Suicide Risk Level Suicide Risk Level: Moderate (q15 min suicide checks) Suicide Risk Level Comments: denies current suicidal thoughts following outpatient overdose but history of self-harm, anger outbursts and irritability so will continue to monitor closely, she agrees to alert staff if she feels unsafe or feels unable to remain safe without additional support Risk Factors Assessment Male: No : Yes Do You Have Access To A Gun?: No Health Problems: No Mental Health Diagnoses: Yes Substance Use Disorders: No Previous Attempt: Yes Previous Psychiatric Hospitalization: Yes Protective Factors Assessment : Yes Responsible for Young Children: Yes 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 Chief Complaint "I'm so tired". Review of Systems Sleep Information Total Hours of Sleep: 7 Sleep Comments: Meal Information Percent Meal Consumed - Breakfast: 100 Percent Meal Consumed - Lunch: 100 Percent Meal Consumed - Dinner: 100 Subjective Subjective Patient was seen & assessed and interval progress reviewed with treatment team nursing and social work. Easily flustered, last night crying and shaking intermittently. Today very focused on when she will be restarted on Latuda, when informed she received it this morning as previous provider had ordered it to restart she is upset stating "I always take it at night" and noting "no wonder I'm so tired and not myself today". She denies current SI but continues to feel easily overwhelmed. She is not interested in any medication adjustments or alternative medication trials. Retreats to her room when she feels overstimulated by peers or milieu of the unit. Physical Exam Psychiatric Orientation: alert and oriented x 3 Apperance: appropriately dressed and + disheveled Eye Contact: + fair eye contact Motor Behavior: no abnormal motor movements Speech: + abnormal rate/rhythm/volume of speech (slightly rapid) Affect: + tearful affect, + labile affect and + irritable affect Mood: + depressed mood, + anxious mood and + irritable mood Thought Process: + circumstantial thought process Thought Content: + cognitive distortions Suicidal Thoughts: denies suicidal thoughts, denies suicidal plan and denies suicidal intent Homicidal Thoughts: denies homicidal thoughts Hallucinations: no auditory hallucinations and no visual hallucinations Cognition: recent memory grossly intact, remote memory grossly intact, attention grossly intact and language grossly intact Estimated Intelligence: average estimated intelligence Insight: + limited insight Judgment: + limited judgement Vital Signs (Past 24 Hours) Last Vital Signs Temp 36.7 C 12/09/22 06:00 Pulse 93 H 12/09/22 06:00 Resp 18 12/09/22 06:00 BP 128/82 12/09/22 06:49 Pulse Ox 99 12/09/22 06:00 O2 Del Method Room Air 12/09/22 06:00 Results & Data ([facility]) Current Inpatient Medications Current Inpatient Medications: Current Inpatient Medications Acetaminophen (Acetaminophen 325 Mg Tab) 650 mg PO Q4H PRN PRN Reason: Headache or Minor Fever Stop: 01/07/23 03:24 Al Hydrox/Mg Hydrox/Simethicone (Aluminum/Magnesium Susp 30 Ml Udc) 30 ml PO Q4H PRN PRN Reason: GI Upset Stop: 01/07/23 03:24 Atomoxetine HCl (Atomoxetine Hcl 40 Mg Capsule) 80 mg PO DAILY OJ Stop: 01/07/23 10:29 Last Admin: 12/09/22 08:46 Dose: 80 mg Bismuth Subsalicylate (Bismuth Subsalicylate Liqd 236 Ml) 15 ml PO PRN PRN PRN Reason: Loose Stool Stop: 01/07/23 03:24 Hydroxyzine HCl (Hydroxyzine Hcl 25 Mg Tab) 50 mg PO HSZ PRN PRN Reason: Insomnia Stop: 01/07/23 03:24 Last Admin: 12/08/22 20:58 Dose: 50 mg Hydroxyzine HCl (Hydroxyzine Hcl 25 Mg Tab) 25 mg PO Q4H PRN PRN Reason: Anxiety Stop: 01/07/23 03:24 Last Admin: 12/08/22 08:24 Dose: 25 mg Lurasidone HCl (Lurasidone Hcl 40 Mg Tab) 120 mg PO DAILY OJ Stop: 01/08/23 08:59 Last Admin: 12/09/22 08:47 Dose: 120 mg Magnesium Hydroxide (Magnesium Hydroxide Susp 30 Ml Udc) 30 ml PO DAILY PRN PRN Reason: Constipation Stop: 01/07/23 03:24 Loreev Xr (Lorazepam Xr) 2mg Caps--Non- Formulary Patient's Own Med 1 each PO DAILY OJ Stop: 01/08/23 08:59 Last Admin: 12/09/22 08:47 Dose: 1 mg Mydayis Er 25mg Cap- -Non-Formulary Patient's Own Med 1 each PO DAILY OJ Stop: 01/08/23 08:59 Last Admin: 12/09/22 08:47 Dose: 1 mg Non-Formulary Medication (Patient's Own Controlled Med 1) 1 each PO DAILY OJ Stop: 12/23/22 08:59 Last Admin: 12/09/22 08:48 Dose: 1 mg Non-Formulary Medication (Patient's Own Controlled Med 2) 1 each PO DAILY OJ Stop: 12/23/22 08:59 Last Admin: 12/09/22 08:48 Dose: 1 mg Sodium Chloride (Sodium Chloride 0.65% Na Soln 45 Ml ([place])) 1 - 2 sprays NA PRN PRN PRN Reason: Nasal Dryness/Congestion Stop: 01/07/23 03:24 Tolterodine Tartrate (Tolterodine Tartrate La 4 Mg Capcr) 4 mg PO DAILY OJ Stop: 01/07/23 08:59 Last Admin: 12/09/22 08:46 Dose: 4 mg Venlafaxine HCl (Venlafaxine Hcl Xr 75 Mg Capxr) 225 mg PO DAILY OJ Stop: 01/08/23 08:59 Last Admin: 12/09/22 08:46 Dose: 225 mg Mental Health & Subst Abuse Tx Psychiatrist Name of Psychiatrist: [facility] - Dr. Holguin Psychiatrist's Date Of Appointment With Psychiatric Provider: 12/27/22 Time of Appointment with Psychiatrist: 1:30 PM Psychiatric Appointment Comment: [address], [address], [place] [address] Therapist Name of Therapist: Marcelina Pedraza - Qiana Kaufman Bottom Ironer Name of Bottom Ironer: None Post Discharge Appointments Primary Care Physician Name Of Family Doctor/PCP: Coy Gutierrez Primary Care Provider Appointment Comment: Follow up with PCP as needed. (4) Overdose Encounter type: initial encounter Injury intent: intentional self-harm Qualified Code(s): T50.902A - Poisoning by unspecified drugs, medicaments and biological substances, intentional self-harm, initial encounter
[2022-12-09] MEDS: hydrOXYzine HCl 25 MG TAB PO PRN ×2 (18:02→20:59)
[2022-12-10 07:33] LABS: Chol HDL Ratio 3.4 (0-5)
[2022-12-10] MEDS: ATOMOXETINE HCL 40 MG CAPSULE PO SCH (08:44)
[2022-12-10] MEDS: TOLTERODINE TARTRATE LA 4 MG CAPCR PO SCH (08:45)
[2022-12-10] MEDS: VENLAFAXINE HCL XR 75 MG CAPXR PO SCH (08:45)
[2022-12-10] MEDS: MYDAYIS PO SCH (08:49)
[2022-12-10] MEDS: LORAZEPAM PO SCH (08:49)
[2022-12-10] MEDS: PATIENT'S OWN CONTROLLED MED 2 PO SCH (08:50)
[2022-12-10] MEDS: PATIENT'S OWN CONTROLLED MED 1 PO SCH (08:50)
--- NOTE | 2022-12-10 09:12 | Psychiatric Progress Note ---
Date of Service December 10, 2022 Impression / Recommendations Impression 42 y/o woman with schizoaffective disorder, depressed type, OCD, ADHD who impulsively overdosed on old lurasidone (but didn't take any of her current lurasidone) "to make everything stop". She was admitted voluntarily on 12/07/2022. Diagnostically seems most consistent with schizoaffective disorder depressed episode as well as likely cluster B traits component. Review of her previous hospitalizations notable for episodes of intense self-harming and anger outbursts when limits were set or she felt she was not getting what she desired. She is currently psychiatrically unstable and requires psychiatric hospitaliza tion for stabilization, safety, and possible medication adjustment. MNPR given history of aggression, irritability, sleep difficulty, uses room as refuge when overwhelmed by peers and cannot tolerate a roommate 12/10/2022: Easily overwhelmed at times but overall mood is improving and she is engaging with peers and groups. She continues to find her current medications helpful and does not wish to make any adjustments or additions to her psychiatric medications. Reviewed results of her fasting lipid panel which were normal. HbA1c and glucose results are pending. (1) Schizoaffective disorder, depressive type: (2) ADHD (attention deficit hyperactivity disorder): (3) OCD (obsessive compulsive disorder): (4) Overdose: (5) Cluster B personality disorder: Plan 12/09/2022: * Continue venlafaxine XR, atomoxetine, Loreev XR and Mydayis ER * Restart Latuda 120mg HS tonight 12/08/2022: * Continue venlafaxine XR 225mg daily * Continue atomoxetine 80mg daily * Restarted prior to admission Loreev XR 2mg daily and Mydayis ER 25mg daily * Restart Latuda 120mg HS (starting tomorrow since got dose this AM). 12/07/2022: The patient was admitted to the [facility] ([facility] inpatient mental health unit) on q15 min checks (behavioral with suicide precautions) for safety. The patient will participate in group, recreational, and milieu therapies and will be offered additional individual and family sessions as clinically appropriate. * continue venlafaxine XR 225 mg daily * continue atomoxetine 80 mg daily (as antidepressant) * lorazepam 0.5 mg QID (in place of non-formulary Loreev XR 2 mg daily) * dextroamphetaine-amphetamine XR 20 mg daily (in place of non-formulary Mydayis 25 mg daily) Inventory Assets Strengths: supportive relationships, has local supports,voluntary, good insight, intelligent employed, Needs: safety and stabilization, medication adjustment, additional coping skills, increased outpatient services Suicide Risk Level Suicide Risk Level: Moderate (q15 min suicide checks) Suicide Risk Level Comments: denies current suicidal thoughts following outpatient overdose but history of self-harm, anger outbursts and irritability so will continue to monitor closely; currently mood is improving and she is better able to regulate some uncertainty related to events today without emotional distress and denies SI; she agrees to alert staff if she feels unsafe or feels unable to remain safe without additional support Risk Factors Assessment Male: No : Yes Do You Have Access To A Gun?: No Health Problems: No Mental Health Diagnoses: Yes Substance Use Disorders: No Previous Attempt: Yes Previous Psychiatric Hospitalization: Yes Protective Factors Assessment : Yes Responsible for Young Children: Yes 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 Chief Complaint "I feel pretty good". Review of Systems Sleep Information Total Hours of Sleep: 7 Meal Information Percent Meal Consumed - Breakfast: 100 Percent Meal Consumed - Lunch: 100 Percent Meal Consumed - Dinner: 75 Subjective Subjective Patient was seen & assessed and interval progress reviewed with treatment team nursing and social work. Very emotional at times including a lot of crying and distress after she missed a call from her sister while she was in the shower. This morning was quite anxious about logistics of calling her family to set up family meeting but was able to do this and was able to sit with not being able to reach her and the uncertainty related to this. She feels her mood is improving and denies SI. States she slept surprisingly well with prn Vistaril even without HS Latuda last night. She's hopeful she can go home soon. Physical Exam Psychiatric Orientation: alert and oriented x 3 Apperance: appropriately dressed and appropriately groomed Eye Contact: good eye contact Motor Behavior: no abnormal motor movements Speech: normal rate/rhythm/volume of speech Affect: + anxious affect Mood: + anxious mood Thought Process: + concrete thought process Thought Content: reality based without delusions Suicidal Thoughts: denies suicidal thoughts, denies suicidal plan and denies suicidal intent Homicidal Thoughts: denies homicidal thoughts Hallucinations: no auditory hallucinations and no visual hallucinations Cognition: recent memory grossly intact, remote memory grossly intact, attention grossly intact and language grossly intact Estimated Intelligence: consistent with education level Insight: + limited insight Judgment: + limited judgement Vital Signs (Past 24 Hours) Last Vital Signs Temp 37.2 C 12/10/22 06:00 Pulse 59 L 12/10/22 06:00 Resp 18 12/10/22 06:00 BP 120/80 12/10/22 07:06 Pulse Ox 99 12/10/22 06:00 O2 Del Method Room Air 12/10/22 06:00 Results & Data ([facility]) Laboratory Results Laboratory Results - last 24 hr 12/10/22 12/10/22 06:54 06:54 Estimat Average Glucose Pending Hemoglobin A1c Pending Triglycerides 95 Cholesterol 170 LDL Cholesterol, Calc 101 VLDL Cholesterol, Calc 19 HDL Cholesterol 50 Cholesterol/HDL Ratio 3.4 Current Inpatient Medications Current Inpatient Medications: Current Inpatient Medications Acetaminophen (Acetaminophen 325 Mg Tab) 650 mg PO Q4H PRN PRN Reason: Headache or Minor Fever Stop: 01/07/23 03:24 Al Hydrox/Mg Hydrox/Simethicone (Aluminum/Magnesium Susp 30 Ml Udc) 30 ml PO Q4H PRN PRN Reason: GI Upset Stop: 01/07/23 03:24 Atomoxetine HCl (Atomoxetine Hcl 40 Mg Capsule) 80 mg PO DAILY OJ Stop: 01/07/23 10:29 Last Admin: 12/10/22 08:44 Dose: 80 mg Bismuth Subsalicylate (Bismuth Subsalicylate Liqd 236 Ml) 15 ml PO PRN PRN PRN Reason: Loose Stool Stop: 01/07/23 03:24 Hydroxyzine HCl (Hydroxyzine Hcl 25 Mg Tab) 50 mg PO HSZ PRN PRN Reason: Insomnia Stop: 01/07/23 03:24 Last Admin: 12/09/22 20:59 Dose: 50 mg Hydroxyzine HCl (Hydroxyzine Hcl 25 Mg Tab) 25 mg PO Q4H PRN PRN Reason: Anxiety Stop: 01/07/23 03:24 Last Admin: 12/09/22 18:02 Dose: 25 mg Lurasidone HCl (Lurasidone Hcl 40 Mg Tab) 120 mg PO HS OJ Stop: 01/09/23 21:59 Magnesium Hydroxide (Magnesium Hydroxide Susp 30 Ml Udc) 30 ml PO DAILY PRN PRN Reason: Constipation Stop: 01/07/23 03:24 Loreev Xr (Lorazepam Xr) 2mg Caps--Non- Formulary Patient's Own Med 1 each PO DAILY OJ Stop: 01/08/23 08:59 Last Admin: 12/10/22 08:49 Dose: 2 mg Mydayis Er 25mg Cap- -Non-Formulary Patient's Own Med 1 each PO DAILY OJ Stop: 01/08/23 08:59 Last Admin: 12/10/22 08:49 Dose: 25 mg Non-Formulary Medication (Patient's Own Controlled Med 1) 1 each PO DAILY OJ Stop: 12/23/22 08:59 Last Admin: 12/10/22 08:50 Dose: Not Given Non-Formulary Medication (Patient's Own Controlled Med 2) 1 each PO DAILY OJ Stop: 12/23/22 08:59 Last Admin: 12/10/22 08:50 Dose: Not Given Sodium Chloride (Sodium Chloride 0.65% Na Soln 45 Ml ([place])) 1 - 2 sprays NA PRN PRN PRN Reason: Nasal Dryness/Congestion Stop: 01/07/23 03:24 Tolterodine Tartrate (Tolterodine Tartrate La 4 Mg Capcr) 4 mg PO DAILY OJ Stop: 01/07/23 08:59 Last Admin: 12/10/22 08:45 Dose: 4 mg Venlafaxine HCl (Venlafaxine Hcl Xr 75 Mg Capxr) 225 mg PO DAILY OJ Stop: 01/08/23 08:59 Last Admin: 12/10/22 08:45 Dose: 225 mg Mental Health & Subst Abuse Tx Psychiatrist Name of Psychiatrist: [facility] - Dr. Holguin Psychiatrist's Date Of Appointment With Psychiatric Provider: 12/27/22 Time of Appointment with Psychiatrist: 1:30 PM Psychiatric Appointment Comment: [address], [address], [place] [address] Therapist Name of Therapist: Marcelina Pedraza - Qiana Kaufman English Composition Teacher Name of English Composition Teacher: None Post Discharge Appointments Primary Care Physician Name Of Family Doctor/PCP: Coy Gutierrez Primary Care Provider Appointment Comment: Follow up with PCP as needed. (4) Overdose Encounter type: initial encounter Injury intent: intentional self-harm Qualified Code(s): T50.902A - Poisoning by unspecified drugs, medicaments and biological substances, intentional self-harm, initial encounter
[2022-12-10] MEDS ORDERED: LURASIDONE HCL 40 MG TAB PO SCH (22:00)
[2022-12-11 08:13] LABS: Estimated Average Glucose 108 mg/dl; Hemoglobin A1C 5.4 % (4.5-5.6)
[2022-12-11] MEDS: ATOMOXETINE HCL 40 MG CAPSULE PO SCH (08:36)
[2022-12-11] MEDS: MYDAYIS PO SCH (08:37)
[2022-12-11] MEDS: LORAZEPAM PO SCH (08:37)
[2022-12-11] MEDS: PATIENT'S OWN CONTROLLED MED 1 PO SCH (08:38)
[2022-12-11] MEDS: TOLTERODINE TARTRATE LA 4 MG CAPCR PO SCH (08:38)
[2022-12-11] MEDS: PATIENT'S OWN CONTROLLED MED 2 PO SCH (08:38)
[2022-12-11] MEDS: VENLAFAXINE HCL XR 75 MG CAPXR PO SCH (08:39)
[2022-12-11] MEDS ORDERED: DESTROY THIS MEDICATION ONE (10:12)
--- NOTE | 2022-12-11 10:14 | Discharge Summary ---
Date of Service December 11, 2022 History of Present Illness As part of a thorough review of the available medical records, I have read and confirmed the following notes by the ED physician: "The patient is a 42-year-old female who presented to the emergency department for an evaluation of mental health issues. The patient has been having problems with anxiety. She states that she had problems recently with her in-laws. Then today she had an issue with the check that was written for her child's daycare. They thought the check was not coming through and the patient was very anxious and angered by this. She admits that she took an overdose of her Latuda 80 mg. She states that at 2 PM she took 27 tablets. The police went to the house. The patient did text her significant other. The call to the police was made at 2:13 PM. The police were on scene at 2:22 PM. The patient has been with the police ever since. She states that she has been taking this medication for quite some time but the bottle in question was old. It was 30 tablets total but she thinks that she took 3 tablets out of this previous bottle. Currently there are 7 pills left. So the patient states that she took 20 tablets all at 1 time. She denies having any vomiting." "The patient is a 42-year-old female who presented to the emergency department for an evaluation of anxiety depression and suicidal ideation with gesture. The patient took an overdose of some of her prescription medication. The patient was reevaluated multiple times. Laboratory studies were obtained. The patient was observed in the emergency department for a period of 8 hours after the ingestion. I discussed the patient's condition with poison control. They felt that she could be medically cleared after that observation time. The patient was resting comfortably. She was tachycardic and Poison control recommended treating this with benzodiazepines. Ativan was ordered. Fluids were ordered." liaison the following note by the ED psychiatric nurse case management: "She admits to taking an overdose of (20) 80mg Latuda tablets that were an old prescription of hers. She took these at approx. 1400 and texted her that she had done so, prompting him to call the police. Shahla states that she is depressed because her glzhev-pf-rpb has been awful to her and she can't take it anymore. She also received a call today from her child's daycare about a missing payment that put her over the edge. She sees Dr. Qiana Kaufman for therapy and has an appointment coming up on 12/19. She did not speak to her therapist about her suicidal feelings as her therapist is on vacation. Shahla states she is diagnosed with schizoaffective disorder." "Shahla stated she had thoughts of suicide today and intentionally overdosed on medication. She stated "I was being stupid. I'm not sure if I really wanted to . I guess I would have taken a lot more if I was." Shahla stated she called her after taking the medication. She stated stressor is conflict with her mother in law. Shahla stated "she is a very difficult person to deal with." Shahla stated she has attempted suicide multiple times in the past via intentional overdose. She stated she has been inpatient on , [facility], and "a variety of places." She denies HI or aggression. She denies SIB. She denies hallucinations, paranoia, or delusional thinking. She denies any medical issues. She denies history of trauma or abuse. She denies drug or alcohol use. 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 Shahla stated she sees Dr. Holguin at [facility] for medication management. She sees Russel Kaufman at [facility] for therapy. Shahla is agreeable with recommendation for inpatient mental health treatment." and the following note by the psychiatric liaison nurse: "Pt. alert and oriented x4. Pleasant and cooperative. Anxious and depressed. Pt. arrived at ED via ambulance after intentional overdose of 20 tablets of 80mg Latuda. Willing for inpatient treatment. Pt states her stressors have been conflicts with her derutb-wl-jxj and a missed payment from her child's daycare. Pt states she has felt suicidal for awhile. Unable to identify exactly how long she has been suicidal for. Pt. states the missed payment got her to the point to spontaneously overdose. Pt. has a history of intentional overdoses. Hx of inpatient stays. Last inpatient stay in 2019 at [facility]. Pt states having hx of ADHD, anxiety, depression, and Schizoaffective disorder. Denies hx or current SIB. Denies substance abuse (other than prescriptions overdose). Denies tobacco use . Pt. states a hx of seizure disorder but has not had a seizure since 5th grade. States diet and sleep have been normal. Denies having guns in the home. Outpatient provider include Dr. Holguin- Psychiatry/Medication Management at [facility], Dr. Qiana Kaufman for therapy at [facility] psychology, Dr. Gutierrez (PCP). ROIs obtained for these providers as well as Tremayne and Kari Walker (parents) and Terrence Byrne (). Pt states she is currently taking Latuda, Effexor, Atomoxetine, Mydayis, Loreev XR, and tolterodine ER."" Review of the medical record reveals psychiatric history of previous admission here in October 2018 following overdose. Pt. carries diagnosis of Schizoaffective Disorder, Depressed Type, ADHD, and in the past OCD. Review of pertinent labs reveals they are noncontributory except for urine toxicology screen that was positive for metabolites of amphetamine (which is prescribed). BAL was <10 mg/dL. Current medications include venlafaxine XR 225 mg daily, atomoxetine 80 mg daily, lurasidone 120 mg daily, dextroamphetamine-amphetamine XR (Mydayis) 25 mg daily, lorazepam XR (Loreev XR) 2 mg daily, tolterodine 4 mg daily. On exam was notably preoccupied with lorazepam and stimulant prescriptions and resisted my suggestion that we should do an assessment of things such as her diagnosis and symptoms before I order medication. Pt reports a number of ongoing stressors including finances and cfmcdx-jc-vye but says these haven't changed over the past day or two. She had an unpleasant interaction with her nswniu-qg-uav last week. She's "been having suicidal thoughts for a while" and isn't really sure why she took the overdose yesterday. She says she took 20 80 mg lurasidone from an old prescription (her current dose requires her to take two 60 mg capsules). She "just wanted it all to stop for a while" and is "not sure" that she expected this to kill her. Physical Exam Vital Signs (Past 24 Hours) Last Vital Signs Temp 36.9 C 12/11/22 06:40 Pulse 87 12/11/22 06:41 Resp 16 12/11/22 06:40 BP 113/77 12/11/22 06:41 Pulse Ox 99 12/10/22 06:00 O2 Del Method Room Air 12/10/22 06:00 See admission H&P and DOD summary. Principal Diagnosis Schizoaffective Disorder, depressive type Psychiatric Data See daily stay summary. In short, patient was engaged with the social/therapeutic milieu of the unit, safety was maintained and the patient was cooperative with care. She was observed to get easily overwhelmed and anxious when she felt not in control of a situation, such as after missing a phone call from her sister and having to wait during the discharge process, but was able to tolerate these experiences without having any re-emergence of SI and was able to self-regulate using coping skills. She did not desire any medication changes so none were made and she continued to tolerate her medications well. Labs of HbA1c, fasting lipid profile, and weight were preformed and were within normal limits. Recommend repeat fasting glucose, HbA1c and fasting lipid profile annually. If symptoms arise recommend checking BP, EKG, prolactin level as clinically indicated or relevant. A family session was held and safety plan was completed prior to discharge. She participated in safety planning and in discussions about ways to seek support and recognizing warning signs and utilizing coping skills. Reviewed mobile apps that could be used for additional ways to have their safety plan and contacts easily available should thoughts of SI re-emerge in the future. Reviewed importance of seeking emergency care should SI intensify, worsen or should they feel unsafe in the future which they agree to do. On the day of discharge she stated her mood was "really good, excited and hopeful" and remained future-oriented including spending time with her family, returning to work and engaging in aftercare appointments for psychiatry and therapy. Day of Discharge Assessment Today the patient voices readiness for discharge. They note improvement in mood and anxiety. They deny thoughts of harm to self or others. Thoughts are organized and they are clinically improved from admission. There is no evidence of psychosis. They improved in the hospital with support and medication adjustments. They agree to take medications as prescribed and keep follow-up appointments. At the time of the discharge they are deemed to be stable and appropriate for outpatient level of care. They are not deemed to be at imminent risk of harm to self or others. They are aware of emergency and crisis services. Knows to call 911 or go to nearest emergency care center if in a crisis which cannot be handled as an outpatient. Transition of Care Transition Of Care Record: was reviewed with the patient Advance Directives Advance Directives Information Provided: Yes Advance Directives: No Mental Health Advance Directive: No Advance Directives on File: No Living Will: No Power of Diaphragm Builder: No Advance Directives Reason:: Declines as Mental Health Visit. Suicide Risk Level Suicide Risk Level Comments: Acute risk is low given improvement in mood and denial of SI, lack of access to lethal means, improvement in sleep and hopefulness. Chronic risk is moderate given multiple non-modifiable risk factors: psychiatric co-morbid diagnoses, periods of impulsivity, prior attempts, hx self-harm, emotional reactivity, prio r psychiatric hospitalizations, mood disorder, schizophrenia, cluster B personality disorder but also with protective factors including: employed, sense of responsibility to family and social supports, outpatient care in place, positive coping skills, capacity to establish therapeutic alliance, willingness to engage with treatment. Counseled on ways to reduce acute and chronic risk including engaging with outpatient providers, using safety plan if needed, utilizing supports, taking medication, and using coping skills. Discussed recommendation to consider DBT in the future to help with emotional regulation and periods of SI which emerge in context of emotional distress/feeling unable to control things. Modifiable risk factors of SI, anxiety and depression were addressed during hospitalization through period of safety and stabilization of the inpatient hospitalization environment, development of new coping skills, family meeting, and safety planning. 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[employer]) Stable Relationships: Yes Supportive Family: Yes Good Rapport with Provider: Yes Discharge Data Lab Results 12/07/22 12/07/22 12/07/22 14:52 14:52 14:57 WBC RBC Hgb Hct MCV MCH MCHC RDW Std Deviation RDW Coeff of Bernard Plt Count MPV Immature Gran % (Auto) Neut % (Auto) Lymph % (Auto) Snyder % (Auto) Eos % (Auto) Baso % (Auto) Neut # (Auto) Lymph # (Auto) Snyder # (Auto) Eos # (Auto) Baso # (Auto) Immature Gran # (Auto) VBG pH VBG pCO2 VBG pO2 VBG HCO3 VBG O2 Saturation VBG Base Excess Sodium Potassium Chloride Carbon Dioxide Anion Gap BUN Creatinine Est Cr Clr Drug Dosing Est GFR ( Amer) Est GFR (Non-Af Amer) BUN/Creatinine Ratio Glucose Estimat Average Glucose Hemoglobin A1c Calcium Total Bilirubin AST ALT Alkaline Phosphatase Total Protein Albumin Globulin Albumin/Globulin Ratio Triglycerides Cholesterol LDL Cholesterol, Calc VLDL Cholesterol, Calc HDL Cholesterol Cholesterol/HDL Ratio TSH HCG, Qual Urine Color Yellow Urine Appearance Clear Urine pH 6.0 Ur Specific Mcdonald 1.003 Urine Protein Negative Urine Glucose (UA) Negative Urine Ketones Negative Urine Blood Negative Urine Nitrite Negative Urine Bilirubin Negative Urine Urobilinogen Negative Ur Leukocyte Esterase Trace H Urine WBC (Auto) 1-5 Urine RBC (Auto) 0-4 U Hyaline Cast (Auto) 1-5 U Epithel Cells (Auto) >30 H Urine Bacteria (Auto) Negative Salicylates Urine Opiates Screen Neg Ur Methadone, Qual Neg Acetaminophen Urine Barbiturates Neg Ur Phencyclidine (PCP) Neg U Amphetamin/Meth Scrn Pos H MDMA (Ecstasy) Screen Neg U Benzodiazepines Scrn Neg Ur Cocaine Metabolite Neg U Marijuana (THC) Screen Neg Ethyl Alcohol mg/dL SARS-CoV-2, RNA, NAAT NEGATIVE 12/07/22 12/07/22 12/07/22 15:02 15:02 15:02 WBC 7.49 RBC 4.28 Hgb 12.9 Hct 37.4 MCV 87.4 MCH 30.1 MCHC 34.5 RDW Std Deviation 38.8 RDW Coeff of Bernard 12.2 Plt Count 313 MPV 9.5 Immature Gran % (Auto) 0.7 Neut % (Auto) 64.5 Lymph % (Auto) 27.2 Snyder % (Auto) 6.0 Eos % (Auto) 1.2 Baso % (Auto) 0.4 Neut # (Auto) 4.83 Lymph # (Auto) 2.04 Snyder # (Auto) 0.45 Eos # (Auto) 0.09 Baso # (Auto) 0.03 Immature Gran # (Auto) 0.05 VBG pH VBG pCO2 VBG pO2 VBG HCO3 VBG O2 Saturation VBG Base Excess Sodium 134 L Potassium 3.8 Chloride 105 Carbon Dioxide 20 L Anion Gap 9 BUN 6 Creatinine 0.81 Est Cr Clr Drug Dosing 96.1 Est GFR ( Amer) 104.6 Est GFR (Non-Af Amer) 90.2 BUN/Creatinine Ratio 7.4 L Glucose 97 Estimat Average Glucose Hemoglobin A1c Calcium 8.5 L Total Bilirubin 0.2 AST 18 ALT 15 Alkaline Phosphatase 85 Total Protein 7.1 Albumin 4.5 Globulin 2.6 Albumin/Globulin Ratio 1.7 Triglycerides Cholesterol LDL Cholesterol, Calc VLDL Cholesterol, Calc HDL Cholesterol Cholesterol/HDL Ratio TSH 3.055 HCG, Qual Urine Color Urine Appearance Urine pH Ur Specific Mcdonald Urine Protein Urine Glucose (UA) Urine Ketones Urine Blood Urine Nitrite Urine Bilirubin Urine Urobilinogen Ur Leukocyte Esterase Urine WBC (Auto) Urine RBC (Auto) U Hyaline Cast (Auto) U Epithel Cells (Auto) Urine Bacteria (Auto) Salicylates Urine Opiates Screen Ur Methadone, Qual Acetaminophen Urine Barbiturates Ur Phencyclidine (PCP) U Amphetamin/Meth Scrn MDMA (Ecstasy) Screen U Benzodiazepines Scrn Ur Cocaine Metabolite U Marijuana (THC) Screen Ethyl Alcohol mg/dL SARS-CoV-2, RNA, NAAT 12/07/22 12/07/22 12/07/22 15:02 15:02 15:02 WBC RBC Hgb Hct MCV MCH MCHC RDW Std Deviation RDW Coeff of Bernard Plt Count MPV Immature Gran % (Auto) Neut % (Auto) Lymph % (Auto) Snyder % (Auto) Eos % (Auto) Baso % (Auto) Neut # (Auto) Lymph # (Auto) Snyder # (Auto) Eos # (Auto) Baso # (Auto) Immature Gran # (Auto) VBG pH VBG pCO2 VBG pO2 VBG HCO3 VBG O2 Saturation VBG Base Excess Sodium Potassium Chloride Carbon Dioxide Anion Gap BUN Creatinine Est Cr Clr Drug Dosing Est GFR ( Amer) Est GFR (Non-Af Amer) BUN/Creatinine Ratio Glucose Estimat Average Glucose Hemoglobin A1c Calcium Total Bilirubin AST ALT Alkaline Phosphatase Total Protein Albumin Globulin Albumin/Globulin Ratio Triglycerides Cholesterol LDL Cholesterol, Calc VLDL Cholesterol, Calc HDL Cholesterol Cholesterol/HDL Ratio TSH HCG, Qual Negative Urine Color Urine Appearance Urine pH Ur Specific Mcdonald Urine Protein Urine Glucose (UA) Urine Ketones Urine Blood Urine Nitrite Urine Bilirubin Urine Urobilinogen Ur Leukocyte Esterase Urine WBC (Auto) Urine RBC (Auto) U Hyaline Cast (Auto) U Epithel Cells (Auto) Urine Bacteria (Auto) Salicylates < 3.0 L Urine Opiates Screen Ur Methadone, Qual Acetaminophen < 3 L Urine Barbiturates Ur Phencyclidine (PCP) U Amphetamin/Meth Scrn MDMA (Ecstasy) Screen U Benzodiazepines Scrn Ur Cocaine Metabolite U Marijuana (THC) Screen Ethyl Alcohol mg/dL < 10.0 SARS-CoV-2, RNA, NAAT 12/07/22 12/10/22 12/10/22 16:23 06:54 06:54 WBC RBC Hgb Hct MCV MCH MCHC RDW Std Deviation RDW Coeff of Bernard Plt Count MPV Immature Gran % (Auto) Neut % (Auto) Lymph % (Auto) Snyder % (Auto) Eos % (Auto) Baso % (Auto) Neut # (Auto) Lymph # (Auto) Snyder # (Auto) Eos # (Auto) Baso # (Auto) Immature Gran # (Auto) VBG pH 7.32 L VBG pCO2 45 VBG pO2 36 VBG HCO3 23 VBG O2 Saturation 69.8 VBG Base Excess -3.1 Sodium Potassium Chloride Carbon Dioxide Anion Gap BUN Creatinine Est Cr Clr Drug Dosing Est GFR ( Amer) Est GFR (Non-Af Amer) BUN/Creatinine Ratio Glucose Estimat Average Glucose 108 Hemoglobin A1c 5.4 Calcium Total Bilirubin AST ALT Alkaline Phosphatase Total Protein Albumin Globulin Albumin/Globulin Ratio Triglycerides 95 Cholesterol 170 LDL Cholesterol, Calc 101 VLDL Cholesterol, Calc 19 HDL Cholesterol 50 Cholesterol/HDL Ratio 3.4 TSH HCG, Qual Urine Color Urine Appearance Urine pH Ur Specific Mcdonald Urine Protein Urine Glucose (UA) Urine Ketones Urine Blood Urine Nitrite Urine Bilirubin Urine Urobilinogen Ur Leukocyte Esterase Urine WBC (Auto) Urine RBC (Auto) U Hyaline Cast (Auto) U Epithel Cells (Auto) Urine Bacteria (Auto) Salicylates Urine Opiates Screen Ur Methadone, Qual Acetaminophen Urine Barbiturates Ur Phencyclidine (PCP) U Amphetamin/Meth Scrn MDMA (Ecstasy) Screen U Benzodiazepines Scrn Ur Cocaine Metabolite U Marijuana (THC) Screen Ethyl Alcohol mg/dL SARS-CoV-2, RNA, NAAT Hospital Course (1) Schizoaffective disorder, depressive type: (2) ADHD (attention deficit hyperactivity disorder): (3) OCD (obsessive compulsive disorder): (4) Overdose: (5) Cluster B personality disorder: Plan 12/09/2022: * Continue venlafaxine XR, atomoxetine, Loreev XR and Mydayis ER * Restart Latuda 120mg HS tonight 12/08/2022: * Continue venlafaxine XR 225mg daily * Continue atomoxetine 80mg daily * Restarted prior to admission Loreev XR 2mg daily and Mydayis ER 25mg daily * Restart Latuda 120mg HS (starting tomorrow since got dose this AM). 12/07/2022: The patient was admitted to the [facility] ([facility] mental health unit) on q15 min checks (behavioral with suicide precautions) for safety. The patient will participate in group, recreational, and milieu therapies and will be offered additional individual and family sessions as clinically appropriate. * continue venlafaxine XR 225 mg daily * continue atomoxetine 80 mg daily (as antidepressant) * lorazepam 0.5 mg QID (in place of non-formulary Loreev XR 2 mg daily) * dextroamphetaine-amphetamine XR 20 mg daily (in place of non-formulary Mydayis 25 mg daily) Mental Health & Subst Abuse Tx Psychiatrist [facility] of Psychiatrist: [facility] - Dr. Holguin Psychiatrist's Date Of Appointment With Psychiatric Provider: 12/27/22 Time of Appointment with Psychiatrist: 1:30 PM Psychiatric Appointment Comment: [address] [place] [address] Psychiatrist Release of Information: Obtained, Reviewed and Signed Therapist Name of Therapist: Marcelina Pedraza - Qiana Kaufman, Ph.D. Therapist's Date of Therapist Appointment: 12/19/22 Time of Therapist Appointment: 3:00 PM Therapy Appointment Comment: Please resume regular outpatient therapy schedule. Therapist Release of Information: Obtained, Reviewed and Signed Chief Clinical Dietitian Name of Chief Clinical Dietitian: None Post Discharge Appointments Primary Care Physician Name Of Family Doctor/PCP: Coy Gutierrez Primary Care Provider Appointment Comment: Follow up with PCP as needed. Primary Care Release of Information: Obtained, Reviewed and Signed Contact Information Discharge Discharge Address: [address] [place] [id number] Discharge Plan Discharge Items Patient Disposition: Home - Self-Care Reason For Visit: SCHIZOAFFECTIVE DISORDER Discharge Diagnosis: Schizoaffective Disorder, depressive episode Activity: Resume your previous activity Non-emergency contact: Primary Care Provider, Psychiatrist and Therapist Call non-emergency contact if: you have any medication questions and your symptoms worsen Follow-up/Referrals: Shelly Gutierrez MD [Primary Care Provider] - Diet: Regular Addtl Attending Provider Instructions: Optional mobile apps we discussed: -Suicide safety plan -Virtual Hope Box SPECIAL CARE INSTRUCTIONS: 1. Follow through with your scheduled aftercare appointments. If unable to keep an appointment, please call to reschedule. 2. Take your medication only as prescribed. Medication should not be changed or stopped without the approval of your doctor. In the event of worsening symptoms or concerns about side effects, contact your doctor immediately. 3. Utilize new healthy coping skills, anger management skills, and stress management skills learned during your hospitalization. Journal feelings and process them with a support person. Identify stressors or situations that may result in relapse, deterioration or inappropriate behaviors and develop a plan to deal with those issues. 4. If your coping skills are ineffective and you are in crisis, contact your outpatient providers for direction. If unable to reach your providers, please call the [facility] CRISIS LINE AT , go to the [facility] walk-in center at [address] [place] [address], [facility], [place], or go to the closest Emergency Room. 5. Avoid alcohol and un-prescribed drugs. 6. You have been provided with the Mental Health Advance Directives Pamphlet for your review. 7. Your condition is stable for discharge to outpatient level of care, but recovery is an ongoing process. Ifthoughts to harm yourself or others return, follow the safety plan developed during your stay. Planning for a safe return home includes securing weapons. Our treatment team recommends weaponsbe removed from the home until your outpatient provider reassesses your progress. In rare cases where the items themselvescannot be removed, guns and ammunitionshould be secured separatelyand keys stored by a reliable personoutside of the home. If you were admitted on an involuntary commitment, the police or other legal authorities may be involved in this process. AFTERCARE APPOINTMENTS: * Please call your insurance company prior to your scheduled appointment to confirm your aftercare providers are covered. Take your insurance information to your appointments. WHO TO CALL AND WHEN: Medical Emergencies: For questions or emergencies related to your hospital stay, please contact the Inpatient Behavioral Health Unit at [phone]. A um specialist is on-call 19/02 for the Behavioral Health Unit for emergencies National Crisis Hotline: 988 At any time you feel your situation is an emergency, you may also call 911 immediately. Pending Studies at Discharge: No Stand-Alone Forms: My [facility] Medications and DC Order Prescriptions: Continued atomoxetine 80 mg capsule 80 mg PO DAILY lurasidone [Latuda] 120 mg tablet 120 mg PO HS Loreev XR 2 mg capsule,extended release 24hr 2 mg PO DAILY Mydayis 25 mg capsule, ER triphasic 24 hr 25 mg PO DAILY tolterodine 4 mg capsule,extended release 24hr 4 mg PO DAILY venlafaxine 150 mg capsule,extended release 24hr 300 mg PO DAILY Discharge Orders: Discharge Order (Routine); Ordered 12/11/22 Ordered By: Monique Vazquez Admission Data Admit Date/Time: 12/08/22 00:44 Attending Provider: Monique Vazquez Admit Provider: Elliot Bojorquez Primary Care Provider: Shelly Gutierrez Other Interventions: Discharge Summary Assessment (RN) Last Done: 12/11/22 10:47 PSY Interdisciplinary Discharge Planning Last Done: 12/11/22 10:45 Coding Level of Care Code 74526 D/C day mgmt > 30 min Diagnoses Schizoaffective disorder, depressive type F25.1 ADHD (attention deficit hyperactivity disorder) F90.9 OCD (obsessive compulsive disorder) F42.9 Overdose T50.902A Encounter type: initial encounter Injury intent: intentional self-harm Cluster B personality disorder F60.89 Time Spent (min) 50
[2022-12-11 14:23] LABS: Amphetamine Urine, Confirm 1600 ng/mL (<250); Methamphetamine, Ur Confirm NEGATIVE ng/mL (<250)
== END 2022-12-11 11:00 | disposition home or self-care (01) | DRG 885 ==
LOC: ED 14:45 → 3S 12-08 00:44 → SUATTDRO 12-08 00:44 → 3S 12-08 01:32